=== PATIENT | male | born 1945 | race Caucasian/White ===

== ENCOUNTER 2017-01-05 23:11 | Inpatient (IN) | payer MEDICARE, OTHER ==
[~2017-01-05] VITALS: Ht 175.3 cm; Wt 120.7 kg
[2017-01-05 23:18] VITALS: BP 163/66; PULSE 84; RESP 18; TEMP 99; O2SAT 97
--- NOTE | 2017-01-05 23:20 | NUR ---
Placed in room 6 . Placed on monitoring analyst, blood pressure machine and pulse oximeter. To gown for exam. Side rails up. Report given to Danny TIAN. Placed by Mery TIAN.
--- NOTE | 2017-01-05 23:20 | NUR ---
Pt came in by ALS. Pt states he started having 7/10 substernal pressure like chest pain since 1300 today. Pt states it radiates to his R shoulder. Pain started after eating. Pt was discharged just a few days ago with pneumonia. Lung sounds diminished bilaterally. Was given 162 mg of ASA and 0.8 mg of Nitro. Pt's pain went down to 5/10 en route to hospital. Pt is a trach pt recieving 2 LPM of O2 via NC. Pt placed on monitor tech and will continue to monitor. No other injuries or complaints mentioned/noted. No distress noted.
--- NOTE | 2017-01-05 23:25 | NUR ---
ER Dr. Rodriguez at bedside examining patient.
[2017-01-05] MEDS ORDERED: MORPHINE 2 MG/ML INJ. SYRINGE IVP ONE (23:30)
[2017-01-05] MEDS ORDERED: NITROGLYCERIN 0.4 MG TAB.SUBL SL ONE (23:30)
[2017-01-05] MEDS ORDERED: AMOX-423 PO (23:34)
[2017-01-05] MEDS ORDERED: DIPH25CA83 PO (23:35)
[2017-01-05] MEDS ORDERED: SUCR1TAB78 PO (23:35)
[2017-01-05] MEDS ORDERED: CAT.2 PO ×2 (23:36→23:37)
[2017-01-05] MEDS ORDERED: CARV25TA55 PO (23:36)
[2017-01-05] MEDS ORDERED: DOCU-144 PO (23:38)
[2017-01-05] MEDS ORDERED: FERR-57 PO (23:38)
[2017-01-05] MEDS ORDERED: HYDR-4039 PO (23:39)
[2017-01-05] MEDS ORDERED: LOPE2CAP PO (23:40)
[2017-01-05] MEDS ORDERED: MAGN400O4 PO (23:41)
[2017-01-05] MEDS ORDERED: MAG-55 PO (23:41)
[2017-01-05] MEDS ORDERED: POLY17PO4 PO (23:42)
[2017-01-05] MEDS ORDERED: FOLI0.8T2 PO (23:43)
[2017-01-05] MEDS ORDERED: NOR10 PO (23:43)
[2017-01-05 23:44] LABS: HEMATOCRIT 28.5 % (36-54); HEMOGLOBIN 9.3 g/dL (14.0-18.0); MEAN CORPUSCULAR HEMOGLOBIN 27 pg (27-31); MEAN CORPUSCULAR HGB CONC 33 % (32-36); MEAN CORPUSCULAR VOLUME 83 fL (79.0-98.0); PLATELET COUNT (AUTO) 315 K/uL (130-430); RED BLOOD CELL COUNT(AUTO) 3.44 MIL/uL (4.2-6.2); RED CELL DISTRIBUTION WIDTH 12.4 % (9.0-15.0); WHITE BLOOD COUNT (AUTO) 20.3 K/uL (4.8-10.8)
[2017-01-05] MEDS ORDERED: OMEP40CA33 PO (23:44)
[2017-01-05] MEDS ORDERED: SER25 PO (23:44)
[2017-01-05] MEDS ORDERED: IPRATROPIUM BROM 0.5 MG/2.5 ML VIAL.NEB (ATROVENT) IH ONE (23:45)
[2017-01-05] MEDS ORDERED: SIME80TA PO (23:45)
[2017-01-05] MEDS ORDERED: ALBUTEROL SULFATE 0.083% 2.5 MG/3 ML VIAL.NEB IH ONE (23:45)
[2017-01-05] MEDS ORDERED: NS 500 ML IV ONE (23:45)
[2017-01-05] MEDS ORDERED: MONT10TA25 PO (23:46)
[2017-01-05] MEDS ORDERED: ACET-2165 PO (23:47)
[2017-01-05 23:50] LABS: ANION GAP 10 (5-15); CALCIUM 8.1 mg/dL (8.4-11.0); CHLORIDE 102 mmol/L (98-107); CREATININE 4.39 mg/dL (0.55-1.30); GLUCOSE 165 mg/dL (70-99); POTASSIUM 5.2 mmol/L (3.5-5.1); SODIUM SERUM 135 mmol/L (136-145); UREA NITROGEN, BLOOD 65 mg/dL (8-21)
[2017-01-05 23:52] LABS: PROTHROMBIN TIME 10.8 SECS (9.5-12.5)
[2017-01-05 23:55] LABS: ALANINE AMINOTRANSFERASE 14 U/L (12-78); ALBUMIN 1.8 g/dL (3.4-4.8); ASPARTATE AMINOTRANSFERASE 12 U/L (10-37); CHOLESTEROL 146 mg/dL (<200); CREATINE KINASE, TOTAL 34 U/L (39-308); HDL CHOLESTEROL 39 mg/dL (>45); LDL CHOLESTEROL 85 mg/dL (<100); TOTAL BILIRUBIN 0.2 mg/dL (0.0-1.0); TOTAL PROTEIN, SERUM 6.5 g/dL (6.4-8.3); TRIGLYCERIDES 63 mg/dL (30-150)
[2017-01-05] MEDS ORDERED: SSREG SUBCUT (23:55)
[2017-01-05] MEDS ORDERED: HYDR-1189 PO (23:57)
[2017-01-06] VITALS (7 sets, daily range): BP systolic 121–156; BP diastolic 69–92; PULSE 69–111; RESP 20–22; TEMP 97.8–98; O2SAT 94–98
[2017-01-06] MEDS ORDERED: ASCO500T20 PO
[2017-01-06] MEDS ORDERED: ZIN220 PO
[2017-01-06] MEDS ORDERED: CETI1TAB2 PO (00:01)
[2017-01-06] MEDS ORDERED: LACTIN PO (00:04)
[2017-01-06 00:16] LABS: BAND % (MANUAL) 2 % (0-6); BASOPHILS % (MANUAL) 0 % (0-2); EOSINOPHILS % (MANUAL) 1 % (0-7); LYMPHOCYTES % (MANUAL) 7 % (20-46); MONOCYTES % (MANUAL) 6 % (0-11)
[2017-01-06] MEDS ORDERED: cefTRIAXone 2 GM VIAL ONE (00:18)
--- NOTE | 2017-01-06 01:20 | NUR ---
Pt is resting comfortably in bed. Pt states he does not want to move due to being in position of comfort. Vitals WNL. Will continue to monitor via media monitor.
--- NOTE | 2017-01-06 01:21 | NUR ---
Pt will be a telemetry hold in the ER and admitted under Dr. Lutz.
[2017-01-06] MEDS ORDERED: ACETAMINOPHEN 325 MG TABLET PO PRN (01:30)
[2017-01-06 01:41] LABS: BILIRUBIN,URINE NEGATIVE (NEGATIVE); BLOOD, URINE NEGATIVE (NEGATIVE); CLARITY/URINE CLEAR (CLEAR); COLOR,URINE YELLOW (YELLOW); GLUCOSE,URINE TRACE (NEGATIVE); KETONES,URINE TRACE (NEGATIVE); LEUKOCYTE ESTERASE ,URINE NEGATIVE (NEGATIVE); NITRITE, URINE NEGATIVE (NEGATIVE); PH,URINE 5.5 (5.0-8.0); PROTEIN URINE 3+ (NEGATIVE); UROBILINOGEN,URINE 0.2 (0.2-1.0)
[2017-01-06] MEDS ORDERED: AZITHROMYCIN 500 MG in NS 250 ML IV ONE (01:45)
[2017-01-06] MEDS ORDERED: AZITHROMYCIN 500 MG/VIAL (ZITHROMAX) IV ONE (01:53)
[2017-01-06 01:55] LABS: BACTERIA,URINE FEW /HPF (None Seen); RBC,URINE 0-3 /HPF (0-3); WBC,URINE 0-3 /HPF (0-3)
[2017-01-06 01:56] LABS: MUCUS,URINE None Seen /LPF (None Seen)
--- NOTE | 2017-01-06 02:10 | NUR ---
Pt transferred to telemetry bed. No wounds on pt's backside. Pt tolerated it well.
--- NOTE | 2017-01-06 02:38 | NUR ---
Pt medicated with 650 mg of tylenol for 3/[address] Lutz PRN order.
[2017-01-06] MEDS ORDERED: ACETAMINOPHEN 325 MG TABLET ONE (02:39)
--- NOTE | 2017-01-06 03:20 | NUR ---
Pt is resting comfortably in bed. Vitals WNL. Will continue to monitor via pants busheler. Pt turned on side via pillow.
[2017-01-06] MEDS ORDERED: MORPHINE 2 MG/ML INJ. SYRINGE ONE (05:00)
[2017-01-06] MEDS ORDERED: MORPHINE 2 MG/ML INJ. SYRINGE IVP PRN (05:00)
[2017-01-06] MEDS ORDERED: ONDANSETRON HCL 4 MG/2 ML VIAL IVP PRN (05:00)
--- NOTE | 2017-01-06 05:00 | NUR ---
Pt is medicated with morphine 2 mg IV push for sudden onset of 6/10 substernal chest pressure that woke the patient up. Given telephone orders from Dr. Lutz.
--- NOTE | 2017-01-06 05:15 | NUR ---
Pt was medicated with Zofran 4mg IVP for sudden onset of nausea under PRN order from Dr. Lutz.
[2017-01-06] MEDS ORDERED: ONDANSETRON HCL 4 MG/2 ML VIAL ONE (05:20)
--- NOTE | 2017-01-06 05:25 | NUR ---
Pt states his pain is now 3/10 and is resting comfortable. Vitals WNL. Will continue to monitor via site monitor. AAOx4. Addendum: 01/06/17 at 0541 by LESLIE Pt rotated to opposite side via pillow.
--- NOTE | 2017-01-06 05:58 | NUR ---
Pt started having some dyspnea. Lung sounds diminished bilaterally. RT called for breathing tx.
[2017-01-06] MEDS ORDERED: cloNIDine HCL 0.1 MG TABLET ONE (06:08)
[2017-01-06] MEDS: ALBUTEROL SULFATE 0.083% 2.5 MG/3 ML VIAL.NEB INH SCH ×5 (06:16→23:23)
[2017-01-06] MEDS: IPRATROPIUM BROM 0.5 MG/2.5 ML VIAL.NEB (ATROVENT) INH SCH ×5 (06:16→23:22)
[2017-01-06] MEDS: cloNIDine HCL 0.2 MG TABLET PO SCH ×3 (06:19→21:23)
--- NOTE | 2017-01-06 06:55 | NUR ---
ADMIT NOTE Received pt from ER to the floor with a diagnosis of pna,atypical chest pain. Admission process initiated. patient oriented to pain management, safety and call light-teach back done.
--- NOTE | 2017-01-06 07:00 | NUR ---
Going to room 123A. Summary report printed. Report given to admitting nurse.
--- NOTE | 2017-01-06 07:30 | NUR ---
OPENING NOTE PATIENT RECEIVED FROM ER. ASMITA MARTINEZ ADMITTED PATIENT TO ROOM 123A PATIENT IS AWAKE, ALERT ORIENTED X4. PT IS BLIND BILATERALLY AND LEFT EYE WANTERS. LEFT LEG RIGID, RIGHT LEG STIFF. BL UE AROM WITH WEAKNESS. WOUND TO RT HEEL, LEFT CALF AND SACRUM. PHOTOS OBTAINED AND WOUNDS DRESSED WITH HYDROGEL, Z GUARD AND FOAM DRESSINGS. TOLERATED WELL. PT IS ON BLOW/BY O2 @2LPM TO TRACHE. SPEAKING VALVE IN PLACE. PT IS ABLE TO EAT BY HIMSELF, SWALLOWS WELL. NO SIGNS OF ASPIRATION.
--- NOTE | 2017-01-06 08:30 | NUR ---
PT C/O CHEST PAIN. REPORTS IT IS LEFT CHEST WALL AREA.
[2017-01-06 08:50] LABS: BASOPHILS % (AUTO) 0.1 % (0.0-2.0); EOSINOPHILS % (AUTO) 0.1 % (0.0-4.0); HEMATOCRIT 26.9 % (36-54); HEMOGLOBIN 8.7 g/dL (14.0-18.0); LYMPHOCYTES # (AUTO) 0.9 K/uL (1.0-5.5); LYMPHOCYTES % (AUTO) 4.7 % (20.5-51.5); MEAN CORPUSCULAR HEMOGLOBIN 27 pg (27-31); MEAN CORPUSCULAR HGB CONC 32 % (32-36); MEAN CORPUSCULAR VOLUME 82 fL (79.0-98.0); MONOCYTES # (AUTO) 2.2 K/uL (0.0-1.0); MONOCYTES % (AUTO) 11.9 % (1.7-9.3); NEUTROPHILS # (AUTO) 15.6 K/uL (1.8-7.7); NEUTROPHILS % (AUTO) 83.2 % (40.0-70.0); PLATELET COUNT (AUTO) 310 K/uL (130-430); RED BLOOD CELL COUNT(AUTO) 3.27 MIL/uL (4.2-6.2); RED CELL DISTRIBUTION WIDTH 12.4 % (9.0-15.0); WHITE BLOOD COUNT (AUTO) 18.7 K/uL (4.8-10.8)
[2017-01-06 08:57] LABS: ANION GAP 7 (5-15); CALCIUM 8.3 mg/dL (8.4-11.0); CHLORIDE 104 mmol/L (98-107); CREATININE 4.41 mg/dL (0.55-1.30); GLUCOSE 192 mg/dL (70-99); POTASSIUM 5.5 mmol/L (3.5-5.1); SODIUM SERUM 135 mmol/L (136-145); UREA NITROGEN, BLOOD 65 mg/dL (8-21)
[2017-01-06 09:02] LABS: ALANINE AMINOTRANSFERASE 12 U/L (12-78); ALBUMIN 1.6 g/dL (3.4-4.8); ASPARTATE AMINOTRANSFERASE 10 U/L (10-37); TOTAL BILIRUBIN 0.2 mg/dL (0.0-1.0); TOTAL PROTEIN, SERUM 6.1 g/dL (6.4-8.3)
--- NOTE | 2017-01-06 09:05 | NUR ---
Pulmonary consult Order received for a consult with Dr Scott for pneumonia. Spoke with Saray at his office. Will follow up as needed.
--- NOTE | 2017-01-06 09:30 | NUR ---
PATIENT MEDICATED FOR PAIN. REPORTED MILD DECREASE IN PAIN IMMEDIATELY AFTER MORPHINE ADMIN. MEDICATED PER ORDERS.
[2017-01-06] MEDS: MORPHINE 2 MG/ML INJ. SYRINGE IVP PRN ×4 (09:52→22:03)
[2017-01-06] MEDS: CARVEDILOL 25 MG TABLET (COREG) PO SCH ×2 (09:53→20:49)
[2017-01-06] MEDS: amLODIPine BESYLATE 10 MG TABLET PO SCH (09:53)
[2017-01-06] MEDS: DOCUSATE SODIUM 100 MG CAPSULE PO SCH (09:54)
[2017-01-06] MEDS: POLYETHYLENE GLYCOL 3350, 17 GM/ POWD.PACK PO SCH (09:54)
[2017-01-06] MEDS: hydrALAZINE HCL 25 MG TABLET PO SCH ×4 (09:54→20:48)
[2017-01-06] MEDS: SUCRALFATE 1 GM TABLET PO SCH ×3 (09:54→20:47)
[2017-01-06] MEDS: OMEPRAZOLE 20 MG CAPSULE.DR (PriLOSEC) PO SCH (09:54)
--- NOTE | 2017-01-06 11:00 | NUR ---
PATIENT MOVED TO NEW OMEGA BED. WHILE LYING FLAT PT REPORTED HE COULDNT BREATHE. PT QUICKLY TRANSFERRED AND SAT UPRIGHT FOR BREATHING EASE. RT AT BEDSIDE TO GIVE BREATHING TX.
--- NOTE | 2017-01-06 12:36 | NUR ---
PT REPORTS HEADACHE. REQUESTING TYLENOL.
--- NOTE | 2017-01-06 13:00 | NUR ---
PATIENT GIVEN MEDICATIONS FOR PAIN. MORPHINE WORKS BEST PER PATIENT. MORPHINE AND APRESOLINE ADMINISTERED. PT REPORTED IMMEDIATE PAIN RELIEF.
--- NOTE | 2017-01-06 13:32 | NUR ---
PATIENT IS SLEEPING. HAS NOT EATEN ANY OF HIS LUNCH. USED URINAL AGAIN. TOTAL OUTPUT 200ML FOR SHIFT SO FAR
--- NOTE | 2017-01-06 14:30 | NUR ---
PATIENT IS REPORTING INCREASING CHEST PAIN AND REQUESTING A BREATHING TREATMENT. PATIENT GIVEN NORCO, RT IS INVOLVED IN A CODE BLUE AT THIS MOMENT. PTS PULSE OX IS 94%. SPEAKING IN FULL SENTENCES
[2017-01-06] MEDS: HYDROcodone/ACETAMIN 5-325 MG TAB (NORCO/ VICODIN) PO PRN ×2 (14:46→20:49)
--- NOTE | 2017-01-06 16:35 | NUR ---
PATIENT CLEANED OF INCONTINENCE. LINEN CHANGED. PT TOLERATED SOMEWHAT WELL. STATED HE COULDNT BREATHE YET WAS YELLING IN FULL SENTENCES.
--- NOTE | 2017-01-06 16:45 | NUR ---
PATIENT IS RESTING CALMLY. NO APPARENT DISTRESS. REMAINS ON TELE MONITOR AND PULSE OX MINITOR. LEFT FA 20G IV PATENT, NO REDNESS OR SWELLING
[2017-01-06] MEDS ORDERED: SODIUM POLYSTYRENE SULFONATE 15 GM/60 ML UDBTL PO ONE (17:30)
--- NOTE | 2017-01-06 17:46 | NUR ---
Nephrology consult Order received for a consult with Dr Fernandes for chronic kidney failure. Spoke with Snehal at the exchange. Will follow up as needed.
--- NOTE | 2017-01-06 17:57 | NUR ---
assisted patient with urinal. medicated per orders and for pain with morphine. patient able to swallow all pills and kayexalate without signs of aspiration
--- NOTE | 2017-01-06 18:41 | NUR ---
DR ORTEGA IN TO SEE PATIENT. ORDERS FOR BLADDER SCAN TONIGHT AND RENAL US AT BEDSIDE.
--- NOTE | 2017-01-06 19:30 | NUR ---
rounds offered hygine to pt and he refused notified rn
--- NOTE | 2017-01-06 20:00 | NUR ---
Initial PM Note Pt was received lying in bed fully AAO x3. No acute distress noted. PM assessment done. Fall precautions are in place. Pt was instructed to call for assistance as needed and pt verbalized understanding. Call light is with pt and bed alarm is on.
[2017-01-06] MEDS: MONTELUKAST 10 MG TABLET PO SCH (20:47)
--- NOTE | 2017-01-06 20:49 | NUR ---
Pain Medication [place] 5/325mg 1 tablet was given po for c/o generalized body ache with no relief. Pt requested IV Morphine.
[2017-01-06] MEDS: APIXABAN 2.5 MG TABLET PO SCH ×2 (21:00→22:01)
[2017-01-06] MEDS: INSULIN REGULAR, HUMAN 100 UNITS/ML, 10 ML VIAL (novoLIN R) SUBCUT PRN (21:22)
--- NOTE | 2017-01-06 21:22 | NUR ---
Blood Sugar Accucheck 158 and 2 units Regular Insulin given SQ. Skin warm and dry to touch.
--- NOTE | 2017-01-06 22:00 | NUR ---
hygiene went in to offer hygine to pt and change is linen and pt yelled and said no you are not cleaning me they all ready did. i asked the nurse and she said no she did not she just pulled him up.
[2017-01-06] MEDS: CEFTAZIDIME 1 GM in D5W 50 ML IV SCH (22:02)
[2017-01-06] MEDS ORDERED: CEFTAZIDIME 1 GM VIAL ONE (22:03)
--- NOTE | 2017-01-06 22:03 | NUR ---
Pain medication Morphine 2mg given IV per pt's request for c/o upper mid abdominal pain with relief.
--- NOTE | 2017-01-07 | NUR ---
Rounds Pt is resting comfortably in bed. Call light is with pt.
[2017-01-07 00:30] VITALS: BP 148/76; PULSE 99; RESP 19; TEMP 98.1; O2SAT 94
[2017-01-07] MEDS ORDERED: cefTRIAXone 1 GM IVPB PREMIX 50 ML IV SCH (01:00)
--- NOTE | 2017-01-07 01:13 | NUR ---
ROUNDS I WENT BACK IN TO OFFER PT TO BE CLEANED AND FIX LINEN HE SAID NO I DONT WANT IT. WILL CONT TO OFFER.
[2017-01-07] MEDS: AZITHROMYCIN 500 MG in NS 250 ML IV SCH (01:27)
[2017-01-07] MEDS: ZOLPIDEM TARTRATE 5 MG TABLET PO PRN ×2 (01:27→21:39)
--- NOTE | 2017-01-07 01:27 | NUR ---
Insomnia Ambien 5mg was given po per pt's request for insomnia.
--- NOTE | 2017-01-07 02:30 | NUR ---
Rounds Pt is sleeping comfortably in bed. No resp distress noted. Call light is with pt.
[2017-01-07] MEDS: ALBUTEROL SULFATE 0.083% 2.5 MG/3 ML VIAL.NEB INH SCH ×3 (03:00→15:40)
[2017-01-07] MEDS: IPRATROPIUM BROM 0.5 MG/2.5 ML VIAL.NEB (ATROVENT) INH SCH ×3 (03:00→15:40)
--- NOTE | 2017-01-07 03:00 | NUR ---
rounds pt still is refusing to be cleaned rn aware
--- NOTE | 2017-01-07 03:55 | NUR ---
Blood Sugar Accucheck done per pt's request and it was 153. Skin remains warm and dry to touch. Pt did not want any snack.
[2017-01-07 04:00] VITALS: BP 116/80; PULSE 91; RESP 18; TEMP 98.2; O2SAT 95
--- NOTE | 2017-01-07 05:01 | NUR ---
rounds went in to clean pt and pt cont to refuse to be clean he said no not till morning . notified rn and charge nurse.
[2017-01-07] MEDS: MORPHINE 2 MG/ML INJ. SYRINGE IVP PRN ×2 (06:22→16:57)
[2017-01-07] MEDS: INSULIN REGULAR, HUMAN 100 UNITS/ML, 10 ML VIAL (novoLIN R) SUBCUT PRN ×2 (06:28→21:44)
--- NOTE | 2017-01-07 06:40 | NUR ---
Closing Note Pt is resting comfortably in bed. All pt's needs were attended to. No fall or injury noted this shift. Will endorse to day shift nurse.
[2017-01-07 06:51] LABS: ALANINE AMINOTRANSFERASE 12 U/L (12-78); ALBUMIN 1.6 g/dL (3.4-4.8); ANION GAP 9 (5-15); ASPARTATE AMINOTRANSFERASE 8 U/L (10-37); CALCIUM 8.7 mg/dL (8.4-11.0); CHLORIDE 99 mmol/L (98-107); CREATININE 5.48 mg/dL (0.55-1.30); GLUCOSE 168 mg/dL (70-99); POTASSIUM 5.6 mmol/L (3.5-5.1); SODIUM SERUM 131 mmol/L (136-145); TOTAL BILIRUBIN 0.2 mg/dL (0.0-1.0); TOTAL PROTEIN, SERUM 6.6 g/dL (6.4-8.3); UREA NITROGEN, BLOOD 73 mg/dL (8-21)
[2017-01-07] MEDS: cloNIDine HCL 0.2 MG TABLET PO SCH ×3 (06:51→21:39)
[2017-01-07 07:41] LABS: HEMOGLOBIN 9.6 g/dL (14.0-18.0); MEAN CORPUSCULAR HEMOGLOBIN 28 pg (27-31); MEAN CORPUSCULAR HGB CONC 33 % (32-36); MEAN CORPUSCULAR VOLUME 84 fL (79.0-98.0); PLATELET COUNT (AUTO) 351 K/uL (130-430); RED BLOOD CELL COUNT(AUTO) 3.43 MIL/uL (4.2-6.2); RED CELL DISTRIBUTION WIDTH 12.8 % (9.0-15.0)
[2017-01-07 08:00] VITALS: BP 130/75; PULSE 89; RESP 20; TEMP 97.6; O2SAT 97
[2017-01-07 08:21] LABS: WHITE BLOOD COUNT (AUTO) 32.4 K/uL (4.8-10.8)
--- NOTE | 2017-01-07 08:26 | NUR ---
OPENING NOTE RECEIVED REPORT FROM NIGHT NURSE, PATIENT IS RESTING COMFORTABLY IN BED WITH NO COMPLAINTS OF PAIN, NO NOTED DISTRESS, DISCOMFORT OR SOB. PATIENT IS ALERT AND ORIENTED AND ABLE TO COMMUNICATE NEEDS TO STAFF. PATIENT IS BEDREST AND IS IN LOWEST POSITION. PATIENT HAS A TRACH WITH 2L OF 02 AND TOLERATING WELL. CALL LIGHT IS WITHIN REACH AND WILL CONTINUE TO MONITOR. RECEIVED A CRITICAL WBC OF 32.[address] BLAS WAS PAGED.
--- NOTE | 2017-01-07 08:27 | NUR ---
PAGED DR BLAS FOR CRITICAL LABS. SPOKE WITH DONY
--- NOTE | 2017-01-07 09:30 | NUR ---
CRITICAL LAB DR BLAS CALLED BACK AND WAS MADE AWARE OF WBC AND NO NEW ORDERS WERE NOTED AT THIS TIME. HE STATED THAT HE WILL BE IN SOON TO SEE THE PATIENT.
[2017-01-07] MEDS: amLODIPine BESYLATE 10 MG TABLET PO SCH (09:37)
[2017-01-07] MEDS: DOCUSATE SODIUM 100 MG CAPSULE PO SCH (09:37)
[2017-01-07] MEDS: POLYETHYLENE GLYCOL 3350, 17 GM/ POWD.PACK PO SCH (09:37)
[2017-01-07] MEDS: OMEPRAZOLE 20 MG CAPSULE.DR (PriLOSEC) PO SCH (09:38)
[2017-01-07] MEDS: SUCRALFATE 1 GM TABLET PO SCH ×3 (09:38→21:38)
[2017-01-07] MEDS: APIXABAN 2.5 MG TABLET PO SCH ×2 (09:38→21:38)
[2017-01-07] MEDS: CARVEDILOL 25 MG TABLET (COREG) PO SCH ×2 (09:39→21:39)
[2017-01-07] MEDS: hydrALAZINE HCL 25 MG TABLET PO SCH ×4 (09:40→21:49)
[2017-01-07 09:43] LABS: ATYPICAL LYMPHOCYTES % 3 % (0-0); BAND % (MANUAL) 4 % (0-6); BASOPHILS % (MANUAL) 0 % (0-2); EOSINOPHILS % (MANUAL) 0 % (0-7); LYMPHOCYTES % (MANUAL) 6 % (20-46); MONOCYTES % (MANUAL) 3 % (0-11)
--- NOTE | 2017-01-07 09:47 | NUR ---
Nutrition Update Corbin Scale 15 noted. Pt admitted for pneumonia, atypical chest pain. Diet: [facility] BMI: 39.9 kg/m2 RD to follow per nutrition care standards.
--- NOTE | 2017-01-07 10:31 | NUR ---
NOTE PATIENT IS RESTING COMFORTABLY IN BED WITH NO COMPLAINTS OF PAIN, NO NOTED DISTRESS, DISCOMFORT OR SOB. PATIENT'S VITAL SIGNS WERE WITHIN NORMAL RANGE AND ALL MEDICATIONS WERE GIVEN WITH NO PROBLEMS. CALL LIGHT IS WITHIN REACH AND WILL CONTINUE TO MONITOR.
[2017-01-07] MEDS ORDERED: BISACODYL 10 MG/SUPPOSITORY RC PRN (11:45)
--- NOTE | 2017-01-07 12:15 | NUR ---
NOTE PATIENT IS RESTING IN BED COMFORTABLY WITH NO COMPLAINTS OF PAIN, NO NOTED DISTRESS, DISCOMFORT OR SOB. PATIENT'S BS WAS 142 AND NO COVERAGE WAS NEEDED AT THIS TIME. BED IS IN LOWEST POSITION AND CALL LIGHT IS WITHIN REACH. WILL CONTINUE TO MONITOR.
[2017-01-07 12:53] VITALS: BP 150/78; PULSE 95; RESP 20; TEMP 97.9; O2SAT 97
[2017-01-07] MEDS: metroNIDAZOLE 500 mg/NS 100 ML IV SCH ×2 (13:27→21:51)
[2017-01-07 13:53] VITALS: Ht 175.3 cm; Wt 120.7 kg
--- NOTE | 2017-01-07 14:30 | NUR ---
NOTE PATIENT IS RESTING IN BED COMFORTABLY WITH NO COMPLAINTS OF PAIN, NO NOTED DISTRESS, DISCOMFORT OR SOB. BED IS IN LOWEST POSITION AND CALL LIGHT IS WITHIN REACH AND WILL CONTINUE TO MONITOR.
--- NOTE | 2017-01-07 14:35 | NUR ---
WOUND EVALUATION: Late note for 1435 secondary to patient care. Wound Consult received from Dr. Lutz. Thank you, Dr. Lutz, for the consult. Patient received in a [place]well Bed with an IsoFlex COLTON mattress with low air-loss therapy initiated, awake, alert, oriented. Patient is unable to turn independently. Corbin Score is a 15. Past Medical History: chronic COPD, Chronic Respiratory Failure on T-bar, Diabetes Mellitus Type 2, Peripheral Arterial Disease, essential Hypertension, Chronic Kidney Disease, Anemia of Chronic Disease, GERD, Hypertension, chronic Constipation, Allergic Rhinitis, Chronic Pain, and Tracheostomy. Recent Labs: WBC 32.4, RBC 3.43, Hgb 9.6, Hct 29.0, Na 131, K 5.6, BUN 73, Creat 5.48, Gluc 168, Alb 1.6. Intrinsic factors that delay wound healing: COPD, Chronic Respiratory Failure, Diabetes Mellitus Type 2, Peripheral Arterial Disease, Anemia of Chronic Disease. Extrinsic factors that delay wound healing: Decreased mobility. Microbiology: Blood Culture x 2 in progress. Urine Culture and MRSA Screen results negative. Wound Assessment: 1) Sacral-Coccygeal Area: Pressure Ulcer, present on admission. Wound bed is 50% yellow tissue, 50% red tissue. No odor, no drainage. robert-wound intact. Measures 1.0 cm x 0.4 cm x 0.6 cm. Recommend: Cleanse wound with normal saline. Place moisture barrier cream onto robert-wound. Put Hydrogel onto wound bed. Cover with foam dressing. Perform wound care daily, and as needed for dressing soiling or dislodgement. 2) Right Heel: Pressure Ulcer, present on admission. Wound bed is 100% pink tissue. No odor, no drainage. robert-wound intact. Measures 0.6 cm x 0.4 cm. Recommend: Cleanse wound with normal saline. Place moisture barrier cream onto robert-wound. Put Hydrogel onto wound bed. Cover with foam dressing. Perform wound care daily, and as needed for dressing soiling or dislodgement. Also recommend: Reposition patient side toside only every 2 hours with pillow support, and off-load pressure areas with pillows for pressure re-distribution. Offload, elevate and float bilateral heels with pillows. Perform skin care and monitor skin integrity Q shift. Use moisture barrier cream on buttocks and other moisture susceptible areas QID and as needed for soiling. Maintain patient on low air-loss therapy.
[2017-01-07] MEDS: 0.45% NACL 1,000 ML IV SCH (15:52)
[2017-01-07 16:23] VITALS: BP 144/76; PULSE 90; RESP 19; TEMP 98.1; O2SAT 97
--- NOTE | 2017-01-07 16:30 | NUR ---
NOTE PAGED DR ORTEGA BECAUSE PATIENT HAS HAD NO URINE OUTPUT TODAY, HE ORDERED TO INSERT A SPENCE. I TRIED, MY 2 CHARGE NURSES TRIED AND THE ER NURSE TRIED TO PLACE THE SPENCE AND IT WAS BLOCKED. A BLADDER SCAN WAS DONE AND THERE WAS 310 URINE IN THE BLADDER. PAGING DR ORTEGA AGAIN TO LET HIM KNOW.
--- NOTE | 2017-01-07 17:25 | NUR ---
PAGED DR ORTEGA FOR ORDERS
--- NOTE | 2017-01-07 17:39 | NUR ---
NOTE PATIENT'S BS WAS 148 AND NO COVERAGE IS NEEDED AT THIS TIME. DR ORTEGA CALLED BACK AND WAS INFORMED THAT THE SPENCE COULD NOT BE INSERTED BECAUSE THERE WAS A BLOCKAGE AND A NEW ORDER TO CONSULT DR ARAGON WAS NOTED AND CARRIED OUT. PATIENT DID URINATE AND MORPHINE WAS GIVEN BECAUSE THE PATIENT HAD CHEST PAIN. CALL LIGHT IS WITHIN REACH AND WILL CONTINUE TO MONITOR
--- NOTE | 2017-01-07 17:45 | NUR ---
CONSULT REASON FOR CONSULT: BLOCKAGE, CANNOT INSERT SPENCE CONSULTING PHYSICIAN: TAMARA ARAGON MD ORDERED BY: VERO ORTEGA MD SPOKE WITH MARCUS FROM EXCHANGE
--- NOTE | 2017-01-07 17:56 | NUR ---
NOTE DR ARAGON CALLED AND STATED THAT HE DOES NOT KNOW IF HE ACCEPTS THE PATIENTS INSURANCE BUT WILL CALL HIS OFFICE AND VERIFY AND CALL TOMORROW TO LET US KNOW.
--- NOTE | 2017-01-07 18:19 | NUR ---
CLOSING NOTE PATIENT IS RESTING IN BED COMFORTABLY WITH NO NOTED DISTRESS, DISCOMFORT OR SOB. PATIENT'S BED IS IN LOWEST POSITION AND CALL LIGHT IS WITHIN REACH. PATIENT IS ALERT AND ORIENTED AND ABLE TO COMMUNICATE NEEDS TO STAFF. WILL GIVE REPORT TO NIGHT NURSE.
[2017-01-07 19:55] VITALS: PULSE 92; RESP 20; TEMP 96.9; O2SAT 90
--- NOTE | 2017-01-07 20:00 | NUR ---
NOTE; PT IS IN BED, BLIND LÓPEZ EYE. ALERT, ORIENTED X3. ABLE TO COMMUNICATE NEEDS. PT IS ON TRACH TO MASK, O2 AT 4L AT THIS TIME. O2 SAT BETWEEN 90-91%. NO ACUTE DISTRESS OR SOB NOTED AT THIS TIME. BLADDER SLIGHTLY DISTENDED. BLADDER SCAN USED NOTED ABOUT 600ML URINE. PT INCONTINENT AFTER BLADDER SCAN USED. AJVIER CARE PROVIDED BY HUMANE OFFICER. PT IS ON AIR MATTRESS. PT REFUSED SACRAL WOUND DRESSING AT THIS TIME. EDUCATED PT ON IMPORTANCE OF WOUND DRESSING. PT STILL REFUSED. NONCOMPLIANT. BED LOCKED AND IN LOW POSITION, SIDE RAILS UP X3. BED ALARM ON. CALL LIGHT AND BEDSIDE TABLE WITHIN REACH . WILL CONTINUE TO MONITOR.
[2017-01-07] MEDS: CEFTAZIDIME 1 GM in D5W 50 ML IV SCH (20:49)
[2017-01-07] MEDS: MONTELUKAST 10 MG TABLET PO SCH (21:38)
--- NOTE | 2017-01-07 22:12 | NUR ---
NOTES; CT ABDOMEN AND PELVIS RESULTS RECEIVED. DR ORTEGA CALLED, SPOKE WITH MD AND RESULTS READ TO MD. DR ORTEGA STATED TO CALL DR. MCKEON WITH RESULTS.
--- NOTE | 2017-01-07 22:12 | NUR ---
PAGED PAGED DANK STEWARD AT [phone] SPOKE WITH EXCHANGE.
--- NOTE | 2017-01-07 22:16 | NUR ---
NOTES; DR MCKEON CALLED, SPOKE WITH MD. CT ABDOMEN AND PELVIS RESULTS READ TO MD. DR MCKEON STATED" OK LET ME THINK ABOUT IT" . CHARGE NURSE KWESI WILSON.
[2017-01-08] VITALS (22 sets, daily range): BP systolic 96–161; BP diastolic 50–94; PULSE 69–94; RESP 16–27; TEMP 96.8–98.2; O2SAT 89–98
--- NOTE | 2017-01-08 00:20 | NUR ---
NOTES; PT IS DESATURATING, PULSE OX READING 82%. RT CALLED AND AT BEDSIDE GIVING BREATHING TREATMENT. WILL CONTINUE TO MONITOR.
[2017-01-08] MEDS: AZITHROMYCIN 500 MG in NS 250 ML IV SCH (00:59)
--- NOTE | 2017-01-08 01:30 | NUR ---
NOTES; BED KLEIN PROVIDED BY [employer], PT HAD X1 SMALL SOFT BM. JAVIER CARE PROVIDED. SAFETY MEASURES IN PROGRESS. WILL CONTINUE TO MONITOR.
--- NOTE | 2017-01-08 03:57 | NUR ---
NOTES; APPEARED TO BE SLEEPING, EYES CLOSED. RESPIRATION EVEN AND UNLABORED. EASILY AROUSED. SAFETY MEASURES IN PROGRESS.
--- NOTE | 2017-01-08 04:30 | NUR ---
NOTES; AWAKE, REQUESTED FAN TO BE TURNED AND POSITION IN PARTICULAR PLACE. REQUEST RENDERED. REPOSITIONED. PT REFUSED DRESSING ON SACRAL WOUND . TRIED TO EDUCATE PT ABOUT THE IMPORTANCE OF WOUND DRESSING. PT WILL NOT LISTEN. PT IS NONCOMPLIANT. CHARGE NUSE AND RN COVERING NOTIFIED.
[2017-01-08] MEDS: metroNIDAZOLE 500 mg/NS 100 ML IV SCH ×3 (05:10→21:07)
--- NOTE | 2017-01-08 05:10 | NUR ---
NOTES; PT CALLED FOR TV TO BE TURNED OFF. TV WAS TURNED OFF. REQUESTED TO TURN IT ON AGAIN. TV TURNED ON . REPOSITIONED PER PT REQUEST. RT AT BEDSIDE . SAFETY MEASURES IN PROGRESS.
[2017-01-08] MEDS: cloNIDine HCL 0.2 MG TABLET PO SCH ×3 (06:08→21:28)
[2017-01-08] MEDS: INSULIN REGULAR, HUMAN 100 UNITS/ML, 10 ML VIAL (novoLIN R) SUBCUT PRN ×2 (06:10→17:24)
[2017-01-08] MEDS: ALBUTEROL SULFATE 0.083% 2.5 MG/3 ML VIAL.NEB INH SCH ×8 (06:11→23:28)
[2017-01-08] MEDS: IPRATROPIUM BROM 0.5 MG/2.5 ML VIAL.NEB (ATROVENT) INH SCH ×7 (06:12→23:28)
[2017-01-08] MEDS: MORPHINE 2 MG/ML INJ. SYRINGE IVP PRN (06:16)
--- NOTE | 2017-01-08 06:50 | NUR ---
Notes Morphine 2mg iv administered by RN covering for abd pain of 6/10. Pt tolerated medication well. Pt stated effective pain afetr pain reassessment. At this time, Pt is resting quietly in bed, easily aroused, no acute distress noted. No SOB noted. Patient is stable, all needs met throughout shift. Will continue to monitor until endorsed to AM nurse at bedside.
[2017-01-08 07:28] LABS: BASOPHILS # (AUTO) 0.1 K/uL (0.0-0.2); BASOPHILS % (AUTO) 0.2 % (0.0-2.0); HEMATOCRIT 26.5 % (36-54); HEMOGLOBIN 8.7 g/dL (14.0-18.0); LYMPHOCYTES # (AUTO) 1.2 K/uL (1.0-5.5); LYMPHOCYTES % (AUTO) 4.1 % (20.5-51.5); MEAN CORPUSCULAR HEMOGLOBIN 28 pg (27-31); MEAN CORPUSCULAR HGB CONC 33 % (32-36); MEAN CORPUSCULAR VOLUME 85 fL (79.0-98.0); MONOCYTES # (AUTO) 2.1 K/uL (0.0-1.0); MONOCYTES % (AUTO) 7.1 % (1.7-9.3); PLATELET COUNT (AUTO) 349 K/uL (130-430); RED BLOOD CELL COUNT(AUTO) 3.13 MIL/uL (4.2-6.2); RED CELL DISTRIBUTION WIDTH 13.2 % (9.0-15.0); WHITE BLOOD COUNT (AUTO) 29.4 K/uL (4.8-10.8)
--- NOTE | 2017-01-08 07:52 | NUR ---
Follow up urologist consult with Andrew YUNG called in the exchange , reason unable to put mendoza catheter due to resistance/ blockage patient dribbling urinating
--- NOTE | 2017-01-08 08:10 | NUR ---
Dr. Lutz pagese ragarding progress of patient ,chest pain of the patient 05/31 , looks drowsy but able to answers question , O2 SATURATION 91% with trache mask at 7 L/ mask , looks pale and sick ,with n.o. carried out .
--- NOTE | 2017-01-08 08:12 | NUR ---
Nutrition Consult Nutrition Consult (Wounds) received 01/07/171944. Pt was seen and assessed by RD on 01/07/17. Please refer to Nutrition Assessment. RD to continue to follow per nutrition care standards.
[2017-01-08 08:15] LABS: ANION GAP 11 (5-15); CALCIUM 8.5 mg/dL (8.4-11.0); CHLORIDE 100 mmol/L (98-107); CREATININE 6.76 mg/dL (0.55-1.30); GLUCOSE 168 mg/dL (70-99); SODIUM SERUM 132 mmol/L (136-145); UREA NITROGEN, BLOOD 84 mg/dL (8-21)
[2017-01-08 08:19] LABS: NEUTROPHILS % (AUTO) 88.6 % (40.0-70.0)
[2017-01-08 08:29] LABS: POTASSIUM 6.5 mmol/L (3.5-5.1)
[2017-01-08] MEDS ORDERED: NITROGLYCERIN 0.4 MG TAB.SUBL SL ONE (08:30)
[2017-01-08] MEDS ORDERED: COMMUNICATION ORDER XX ONE (08:30)
--- NOTE | 2017-01-08 08:33 | NUR ---
CALLED PRESSURE SUPERVISOR, DR ORTEGA, RE: CRITICAL K LEVEL OF 6.4. LEFT A MESSAGE ON HIS CELL PHONE
--- NOTE | 2017-01-08 08:51 | NUR ---
CONS FOR DR THAPA SW EXCHANGE FOR BELKYS GARCIA
[2017-01-08] MEDS: hydrALAZINE HCL 25 MG TABLET PO SCH ×5 (09:00→21:00)
[2017-01-08] MEDS: DOCUSATE SODIUM 100 MG CAPSULE PO SCH (09:00)
[2017-01-08] MEDS: amLODIPine BESYLATE 10 MG TABLET PO SCH (09:00)
[2017-01-08] MEDS: POLYETHYLENE GLYCOL 3350, 17 GM/ POWD.PACK PO SCH (09:00)
[2017-01-08] MEDS: CARVEDILOL 25 MG TABLET (COREG) PO SCH ×2 (09:00→21:00)
[2017-01-08] MEDS: 0.45% NACL 1,000 ML IV SCH (09:02)
--- NOTE | 2017-01-08 09:05 | NUR ---
CALLED ATTENDING MD DR BLAS, RE: LAB RESULTS. SPOKE TO JOE
--- NOTE | 2017-01-08 09:10 | NUR ---
Patient still with chest pain more to the right side , agreed to take nitroglycerin SL to releive chest pain, verbalized understanding of medication, EKG completed seen and examined by Dr. Butterfield ; RAPID RESPONSE was called due to chest pain EKG RESULT shows acute ME , ANALISA YUNG , ATIL at the bedside . Dr. copeland informed regarding patient progress , lab result and needs of the patient with order to transfer patient to ICU for close monitoring.
[2017-01-08] MEDS: OMEPRAZOLE 20 MG CAPSULE.DR (PriLOSEC) PO SCH (09:28)
[2017-01-08] MEDS: SUCRALFATE 1 GM TABLET PO SCH ×3 (09:29→21:00)
--- NOTE | 2017-01-08 09:29 | NUR ---
TRANSFER TO ICU FOR CLOSE MONITORING
--- NOTE | 2017-01-08 09:50 | NUR ---
Family member Valentino Teague informed regarding transfer to ICU for close monitoring and progress/condition of patient .
--- NOTE | 2017-01-08 09:58 | NUR ---
Called Dr. Dean's office for Gigi insertion consultation. AWaiting for him to call back.
--- NOTE | 2017-01-08 10:05 | NUR ---
RN NOTES: TRANSFER FROM [facility] POST HYDROMETEOROLOGIST. TRANSFER FROM [facility] POST HYDROMETEOROLOGIST, CAME IN TO ICU DUE TO CHEST DISCOMFORT AND ELEVATED BUN/CREAT. PATIENT IS AWAKE AND ALERT, WITH TRACHE TO O2 50% VIA TRACHE COLLAR, SPO2 90%. SCOPE SHOWS SINUS RHYTHM, INITIAL VITALS CHECKED AND RECORDED. PATIENT KEPT COMFORTABLE.
[2017-01-08 10:28] LABS: ABG TOTAL HEMOGLOBIN 9.1 G/dL (12.0-18.0); BLOOD GAS BASE EXCESS -10.4 mmol/L (-3.0-3.0); BLOOD GAS COHb% 1.1 % (0.5-1.5); BLOOD O2Hb% 85.6 % (94.0-97.0)
[2017-01-08] MEDS ORDERED: HEPARIN SODIUM,PORCINE 5000 UNITS/ML VIAL ONE (10:31)
--- NOTE | 2017-01-08 11:00 | NUR ---
RN NOTES BELKYS CATHETER PLACEMENT BY DR. THAPA.
--- NOTE | 2017-01-08 11:30 | NUR ---
SPOKE TO DR. MULLINS RE: PT TRACHE (CUFFLESS), IT'S OK FOR RESP. THERAPIST TO CHANGE TRACHE TO CUFFED PORTEX.
[2017-01-08] MEDS: LORazepam 2 MG/ML VIAL IVP PRN ×2 (11:53→16:17)
--- NOTE | 2017-01-08 12:00 | NUR ---
SPOKE TO DR. THAPA RE: BELKYS CATHETER PLACEMENT (CXR) - OK TO USE BELKYS CATHETER PER DR. THAPA.
--- NOTE | 2017-01-08 12:05 | NUR ---
RT NOTES PER DR. MULLINS CHANGE TRACH TO PORTEX 7 CUFFED. CONNECT TO VENT VIA SETTINGS OF AC 18 500 60%. KEEP SAT ABOVE 90%. NO RESPIRATORY DISTRESS NOTED AT THIS TIME. RN MADE AWARE OF CHANGES. WILL CONTINUE MONITOR.
--- NOTE | 2017-01-08 12:18 | NUR ---
SEEN BY DR. ORTEGA, WITH ORDERS.
--- NOTE | 2017-01-08 12:19 | NUR ---
BLOOD SUGAR = 143 MGS/DL NO INSULIN COVERAGE GIVEN.
--- NOTE | 2017-01-08 12:30 | NUR ---
RN NOTES PATIENT ON THE VENT, UNPAID INTERN AT BEDSIDE.
[2017-01-08] MEDS ORDERED: NOREPINEPHRINE BITARTRATE 16 MG in NS 234 ML IV PRN (13:30)
--- NOTE | 2017-01-08 16:20 | NUR ---
RN NOTES PATIENT MEDICATED FOR AGITATION. REPOSITIONED.
--- NOTE | 2017-01-08 16:40 | NUR ---
MD VISIT: DR. WAN BLAS HERE TO SEE PATIENT, WITH ORDERS.
--- NOTE | 2017-01-08 17:00 | NUR ---
BLOOD SUGAR = 153 MGS/DL, DUE INSULIN COVERAGE GIVEN.
[2017-01-08] MEDS ORDERED: ENALAPRILAT DIHYDRATE 1.25 MG/ML VIAL IVP PRN (17:15)
[2017-01-08] MEDS ORDERED: ENOXAPARIN SODIUM 30 MG/0.3 ML SYRINGE SUBCUT ONE (17:30)
--- NOTE | 2017-01-08 18:00 | NUR ---
RN NOTES PM CARE DONE, CHG BATH RENDERED, PATIENT REPOSITIONED FOR COMFORT.
[2017-01-08] MEDS: ENOXAPARIN SODIUM 30 MG/0.3 ML SYRINGE SUBCUT SCH (18:05)
--- NOTE | 2017-01-08 18:45 | NUR ---
RN NOTES NO ACUTE DISTRESS NOTED, VITALS STABLE.
--- NOTE | 2017-01-08 20:00 | NUR ---
PM ASSESSMENT PT IN BED, CALM AND COOPERATIVE. NO SIGNS OF DISTRESS. PT DENIES ANY PAIN THIS MOMENT. TRACH 7 PORTEX CUFFED CONNECTED TO VENT AC 18 TV 500 FIO2 60%. O2 SAT 90%. BREATHING EVEN AND UNLABORED. SINUS RHYTHM ON PHARMACOEPIDEMIOLOGIST. BELKYS CATH NOTED TO LEFT SUBCLAVIAN DRESSING CLEAN DRY AND INTACT. NO SIGNS OF INFECTION OR INFILTRATION. PERIPHERAL IV SALINE LOCK 20 G NOTED TO LEFT FOREARM DRESSING DRY CLEAN AND INTACT. NO SIGNS OF INFECTION OR INFILTRATION. CALL LIGHT WITHIN REACH. BED AT LOWEST POSITION. CONTINUE TO MONITOR.
[2017-01-08] MEDS: MONTELUKAST 10 MG TABLET PO SCH (21:00)
[2017-01-08] MEDS: CEFTAZIDIME 1 GM in D5W 50 ML IV SCH (21:06)
[2017-01-08] MEDS: HYDROmorphone 1 MG INJ. 1 MG/ML AMPUL IVP PRN (23:49)
[2017-01-09] VITALS (34 sets, daily range): BP systolic 106–187; BP diastolic 50–118; PULSE 76–91; RESP 15–29; TEMP 97.2–98; O2SAT 87–99
[2017-01-09] MEDS: AZITHROMYCIN 500 MG in NS 250 ML IV SCH (02:05)
[2017-01-09] MEDS: ALBUTEROL SULFATE 0.083% 2.5 MG/3 ML VIAL.NEB INH SCH ×6 (02:20→23:05)
[2017-01-09] MEDS: IPRATROPIUM BROM 0.5 MG/2.5 ML VIAL.NEB (ATROVENT) INH SCH ×6 (02:21→23:05)
[2017-01-09] MEDS: metroNIDAZOLE 500 mg/NS 100 ML IV SCH ×3 (05:05→22:43)
[2017-01-09] MEDS: cloNIDine HCL 0.2 MG TABLET PO SCH ×4 (05:11→22:42)
--- NOTE | 2017-01-09 05:35 | NUR ---
FIO2 TITRATION RESPIRATORY THERAPIST TITRATED FIO2 UP TO 70%
[2017-01-09] MEDS: HYDROmorphone 1 MG INJ. 1 MG/ML AMPUL IVP PRN ×2 (05:46→11:05)
--- NOTE | 2017-01-09 06:00 | NUR ---
FIO2 TITRATION RESPIRATORY THERAPIST TITRATED FIO2 TO 80%
[2017-01-09 06:48] LABS: BASOPHILS % (AUTO) 0.1 % (0.0-2.0); EOSINOPHILS % (AUTO) 0.2 % (0.0-4.0); HEMATOCRIT 26.1 % (36-54); HEMOGLOBIN 8.3 g/dL (14.0-18.0); LYMPHOCYTES # (AUTO) 0.9 K/uL (1.0-5.5); LYMPHOCYTES % (AUTO) 5.6 % (20.5-51.5); MEAN CORPUSCULAR HEMOGLOBIN 27 pg (27-31); MEAN CORPUSCULAR HGB CONC 32 % (32-36); MEAN CORPUSCULAR VOLUME 84 fL (79.0-98.0); MONOCYTES # (AUTO) 1.6 K/uL (0.0-1.0); MONOCYTES % (AUTO) 9.9 % (1.7-9.3); NEUTROPHILS # (AUTO) 13.5 K/uL (1.8-7.7); NEUTROPHILS % (AUTO) 84.2 % (40.0-70.0); PLATELET COUNT (AUTO) 290 K/uL (130-430); RED BLOOD CELL COUNT(AUTO) 3.12 MIL/uL (4.2-6.2)
--- NOTE | 2017-01-09 07:47 | NUR ---
GAVE REPORT TO ONCOMING NURSE
--- NOTE | 2017-01-09 08:00 | NUR ---
AM Shift Assessment Received pt AAO x 2, nonverbal, able to make needs known. Pt denies any pain, no signs of distress noted. Respirations even and unlabored with trach to vent AC 18, TV 400, FiO2 80%. Skin warm and dry. Gigi cath on L chest intact, patent. IVSL 20G on LFA intact, patent, no erythema noted. Heart sounds regular. Adventitious breath sounds. Pulses present on extremities. Bowel sounds present. Pt is on low air mattress. Elevated heels with pillow. Bed locked in lowest position. Call light in reach. will continue to monitor.
[2017-01-09 08:06] LABS: ANION GAP 9 (5-15); CHLORIDE 98 mmol/L (98-107); GLUCOSE 139 mg/dL (70-99); POTASSIUM 4.8 mmol/L (3.5-5.1); SODIUM SERUM 133 mmol/L (136-145)
[2017-01-09 08:07] LABS: CALCIUM 8.2 mg/dL (8.4-11.0); CREATININE 5.71 mg/dL (0.55-1.30); TOTAL BILIRUBIN 0.2 mg/dL (0.0-1.0); UREA NITROGEN, BLOOD 61 mg/dL (8-21)
[2017-01-09 08:08] LABS: ALANINE AMINOTRANSFERASE 19 U/L (12-78); ALBUMIN 1.4 g/dL (3.4-4.8); ASPARTATE AMINOTRANSFERASE 13 U/L (10-37); THYROID STIMULATING HORMONE 3.84 uIu/mL (0.34-4.82); TOTAL PROTEIN, SERUM 6.1 g/dL (6.4-8.3)
[2017-01-09] MEDS: ENOXAPARIN SODIUM 30 MG/0.3 ML SYRINGE SUBCUT SCH (08:12)
--- NOTE | 2017-01-09 08:15 | NUR ---
Patient Round/Refusal of NG Tube Oral care and suctioning given. Explained to pt regarding need to have nutrients in stomach via NG tube due to cuffed tracheostomy. Pt shook head and refused and mouthed, "I don't want it." No PO medications given. Will continue to monitor.
[2017-01-09] MEDS: hydrALAZINE HCL 25 MG TABLET PO SCH ×4 (08:31→22:42)
[2017-01-09] MEDS: CARVEDILOL 25 MG TABLET (COREG) PO SCH ×3 (08:31→22:43)
[2017-01-09] MEDS: SUCRALFATE 1 GM TABLET PO SCH ×4 (08:31→22:42)
[2017-01-09] MEDS: DOCUSATE SODIUM 100 MG CAPSULE PO SCH (08:31)
[2017-01-09] MEDS: POLYETHYLENE GLYCOL 3350, 17 GM/ POWD.PACK PO SCH (08:32)
[2017-01-09] MEDS: amLODIPine BESYLATE 10 MG TABLET PO SCH (08:32)
[2017-01-09] MEDS: OMEPRAZOLE 20 MG CAPSULE.DR (PriLOSEC) PO SCH (08:33)
--- NOTE | 2017-01-09 10:14 | NUR ---
Dr. Greer Butterfield at bedside with pt. Dr. Butterfield aware of pt refusing NG tube and therefor not receiving PO meds. Will continue with plan of care.
--- NOTE | 2017-01-09 10:15 | NUR ---
Dr. Butterfield in to see pt.
[2017-01-09] MEDS: LORazepam 2 MG/ML VIAL IVP PRN (11:04)
--- NOTE | 2017-01-09 11:15 | NUR ---
Dr. Damon (for Dr. Scott) in to see pt. Dr. Damon aware of pt's complaint of difficulty breathing. New orders made, carried out. Will continue with plan of care.
[2017-01-09 11:16] LABS: ABG TOTAL HEMOGLOBIN 10.2 G/dL (12.0-18.0); BLOOD GAS BASE EXCESS -4.8 mmol/L (-3.0-3.0); BLOOD GAS PH 7.278 (7.350-7.450)
[2017-01-09 11:17] LABS: BLOOD GAS COHb% 0.8 % (0.5-1.5); BLOOD GAS HHB 14.3 % (0.0-6.0); BLOOD O2Hb% 84.8 % (94.0-97.0)
--- NOTE | 2017-01-09 11:19 | NUR ---
RT NOTE VENT CHANGE MADE AT THIS TIME PER MD ORDER AT BEDSIDE AFTER ABG RESULT AC 22 +5, NO RESP DISTRESS RECORDED. RN INFORMED
--- NOTE | 2017-01-09 13:50 | NUR ---
Dr. Nelda Lutz at bedside with pt. Dr. Lutz aware of pt refusing NG tube and discussed implications with pt. Pt agreed to insertion of NG tube. Will continue with plan of care.
--- NOTE | 2017-01-09 14:30 | NUR ---
NGT Attempt Pt agreed with Dr. Lutz to have NG tube placement for temporary feeding. Assessed for patent nostrils and measurements. Attempted insertion X2 in left nostril and right nostril, unsuccessful. Pt request to "take a break" with insertion attempts and try later. Will continue to monitor.
--- NOTE | 2017-01-09 16:15 | NUR ---
Dr. Arreola (in for Dr. Fernandes) in to see pt. New orders made, carried out. Will continue with plan of care.
--- NOTE | 2017-01-09 16:24 | NUR ---
Call for Consent for CTA with Contrast Contacted Lisa Major at [phone] twice, left voicemail and call back number. Also, contacted next of kin Valentino Teague at [phone], no answer, left voicemail and call back number.
[2017-01-09] MEDS: hydrALAZINE HCL 20 MG/ML VIAL IVP PRN (16:44)
--- NOTE | 2017-01-09 17:15 | NUR ---
Consent for CT Contrast Received phone call from pt's son, Valentino Teague. Obtained consent from son verified with Kenia TIAN, placed in chart. Son also updated on pt's status.
[2017-01-09] MEDS ORDERED: IOHEXOL 350 mgI/mL, 150 ML INFUS..BTL IV ONE (18:07)
--- NOTE | 2017-01-09 18:30 | NUR ---
CT Transport Pt transport out to CT accompanied by RN, RT, and tv technician. Pt noted with shortness of breath and distress during transport. Pt was returned to room and calmed down. Will continue to monitor.
--- NOTE | 2017-01-09 19:45 | NUR ---
Endorsement Endorsed plan of care to Mauricio RN via SBAR tool and round at bedside.
--- NOTE | 2017-01-09 20:00 | NUR ---
Initial note Received awake, alert x2 , non-verbal. Attempts to vocalize with mumbled muted voice. No c/o pain or discomfort, watching t.v. Respirations even and unlabored on trach to vent, tolerating settings ac22, FiO2 80%, TV 500, peep 5, O2 sat 100%. Left chest oneyda cath intact with no redness or swelling to insertion site. Left fa IV access intact & patent, no swelling or redness to insertion site. Able to move extremities. Turned and repositione on pillow support. HOB elevated. Bed in low, locked position. Call light within reach.
[2017-01-09] MEDS: CEFTAZIDIME 1 GM in D5W 50 ML IV SCH (21:47)
[2017-01-09] MEDS: MONTELUKAST 10 MG TABLET PO SCH ×2 (21:55→22:42)
--- NOTE | 2017-01-09 22:35 | NUR ---
NG TUBE PLACEMENT: NG tube placed to right nare. Placement checked by auscultation of instilled air into stomach and aspiration of gastric contents. Tubing taped in place to prevent dislodging. Patient tolerated well.
--- NOTE | 2017-01-09 22:47 | NUR ---
Blood sugar Fingerstick checked =143 mg/dL. No s/s of hypo/hyperglycemia. No coverage required.
--- NOTE | 2017-01-09 23:01 | NUR ---
Medications Due po medications given crushed via ng tube, flushed with 100 cc water. Tolerated well.
[2017-01-10] VITALS (37 sets, daily range): BP systolic 123–205; BP diastolic 57–106; PULSE 77–95; RESP 13–30; TEMP 97.6–98.3; O2SAT 95–100
--- NOTE | 2017-01-10 02:00 | NUR ---
Rounds Sleeping quietly, easily aroused. VItals stable. No c/o pain or discomfort. No shortness of breath noted. Call light placed within reach.
[2017-01-10] MEDS: ALBUTEROL SULFATE 0.083% 2.5 MG/3 ML VIAL.NEB INH SCH ×6 (03:13→23:10)
[2017-01-10] MEDS: IPRATROPIUM BROM 0.5 MG/2.5 ML VIAL.NEB (ATROVENT) INH SCH ×6 (03:13→23:10)
[2017-01-10] MEDS: AZITHROMYCIN 500 MG in NS 250 ML IV SCH (03:17)
[2017-01-10] MEDS: HYDROmorphone 1 MG INJ. 1 MG/ML AMPUL IVP PRN ×4 (04:56→21:58)
--- NOTE | 2017-01-10 05:00 | NUR ---
Hygiene/pain Incontinent of urine. Partial bed bath given, perineal care given. Shortness of breath noted on turning. Allowed to rest and elevated hob before completing bed bath. Breathing without difficulty after resting for a while. C/o abdominal pain rated 8/10. Dilaudid IV given as ordered. Turned and repositioned with pillow support. Call light placed within reach.
[2017-01-10] MEDS: cloNIDine HCL 0.2 MG TABLET PO SCH ×2 (05:04→14:00)
[2017-01-10] MEDS: metroNIDAZOLE 500 mg/NS 100 ML IV SCH ×3 (05:05→21:56)
[2017-01-10 06:50] LABS: BASOPHILS % (AUTO) 0.1 % (0.0-2.0); EOSINOPHILS % (AUTO) 0.2 % (0.0-4.0); HEMATOCRIT 26.1 % (36-54); HEMOGLOBIN 8.5 g/dL (14.0-18.0); LYMPHOCYTES % (AUTO) 6.2 % (20.5-51.5); MEAN CORPUSCULAR HEMOGLOBIN 27 pg (27-31); MEAN CORPUSCULAR HGB CONC 32 % (32-36); MEAN CORPUSCULAR VOLUME 83 fL (79.0-98.0); MONOCYTES # (AUTO) 1.9 K/uL (0.0-1.0); NEUTROPHILS # (AUTO) 12.6 K/uL (1.8-7.7); PLATELET COUNT (AUTO) 341 K/uL (130-430); RED BLOOD CELL COUNT(AUTO) 3.15 MIL/uL (4.2-6.2); RED CELL DISTRIBUTION WIDTH 12.9 % (9.0-15.0); WHITE BLOOD COUNT (AUTO) 15.5 K/uL (4.8-10.8)
--- NOTE | 2017-01-10 07:00 | NUR ---
Endorsement of care Resting quietly in bed listening to TV. No c/o pain or discomfort. All needs attended to. Report given to Toshia TIAN at bedside via SBAR.
[2017-01-10 07:02] LABS: ANION GAP 14 (5-15); CALCIUM 8.4 mg/dL (8.4-11.0); CHLORIDE 98 mmol/L (98-107); CREATININE 6.67 mg/dL (0.55-1.30); GLUCOSE 152 mg/dL (70-99); POTASSIUM 4.7 mmol/L (3.5-5.1); SODIUM SERUM 133 mmol/L (136-145); UREA NITROGEN, BLOOD 75 mg/dL (8-21)
--- NOTE | 2017-01-10 07:40 | NUR ---
AM Shift Assessment Received pt AAOx2, nonverbal, able to make needs known. Pt denies any pain or discomfort at this time. Respirations even and unlabored with tracheostomy to vent: AC 22, TV 500, FiO2 80%, PEEP 5. No SOB or signs of distress noted. Skin warm and dry. Gigi cath R upper chest, intact, patent, no erythema noted. IVSL RFA 20G intact, patent, no erythema noted. NG tube in place in R nare, auscultated for placement, aspirated less than 5 ml of green residual. Heart sounds regular, SR on monitor, HR 78, pulses present on extremities. Adventitious breath sounds. Bowel sounds present x4 quads. Abdomen soft and nontender. Bed locked in lowest position. Call light in reach. Will continue to monitor.
[2017-01-10 07:56] LABS: BLOOD GAS PH 7.326 (7.350-7.450)
[2017-01-10 07:57] LABS: ABG TOTAL HEMOGLOBIN 8.9 G/dL (12.0-18.0); BLOOD GAS BASE EXCESS -6.6 mmol/L (-3.0-3.0); BLOOD GAS COHb% 0.9 % (0.5-1.5); BLOOD GAS HHB 2.7 % (0.0-6.0); BLOOD O2Hb% 96.2 % (94.0-97.0)
--- NOTE | 2017-01-10 08:00 | NUR ---
Patient Round Administered oral care and suctioning. Repositioned pt. Administered NG tube meds. Pt denies any pain or discomfort. No acute distress noted. Will continue to monitor.
[2017-01-10] MEDS: ENOXAPARIN SODIUM 30 MG/0.3 ML SYRINGE SUBCUT SCH (09:31)
[2017-01-10] MEDS: POLYETHYLENE GLYCOL 3350, 17 GM/ POWD.PACK PO SCH (09:33)
[2017-01-10] MEDS: SUCRALFATE 1 GM TABLET PO SCH ×2 (09:33→15:00)
[2017-01-10] MEDS: hydrALAZINE HCL 25 MG TABLET PO SCH ×3 (09:33→17:00)
[2017-01-10] MEDS: DOCUSATE SODIUM 100 MG CAPSULE PO SCH (09:33)
[2017-01-10] MEDS: OMEPRAZOLE 20 MG CAPSULE.DR (PriLOSEC) PO SCH (09:34)
[2017-01-10] MEDS: CARVEDILOL 25 MG TABLET (COREG) PO SCH (09:34)
[2017-01-10] MEDS: amLODIPine BESYLATE 10 MG TABLET PO SCH (09:35)
--- NOTE | 2017-01-10 10:00 | NUR ---
Patient Round Offered to reposition pt, pt refused to be turned and states he's "comfortable." Discussed with pt on risks and benefits of turning, pt refuses. Will continue to monitor.
[2017-01-10] MEDS: LORazepam 2 MG/ML VIAL IVP PRN ×2 (10:14→14:41)
--- NOTE | 2017-01-10 10:54 | NUR ---
Transport to CT Angiogram Pt stable for transfer and medicated with dilaudid and ativan PRN. Pt connected to portable monitor. Pt transfer to CT scan accompanied by pietro, RN, and RT. VS stable, afebrile, no SOB or signs of distress noted. Will continue to monitor.
--- NOTE | 2017-01-10 11:28 | NUR ---
Return from CT Angiogram Pt tolerate procedure well with continuous monitoring. Pt return to room accompanied by RN, RT, and mold tooling technician. VS stable, afebrile. Connected pt to room monitor. No SOB or signs of distress noted. Pt denies any pain or discomfort. Will continue to monitor.
[2017-01-10 11:49] LABS: NEUTROPHILS % (AUTO) 81.5 % (40.0-70.0)
--- NOTE | 2017-01-10 14:24 | NUR ---
Orders Dr. Lutz paged and return call. Dr. Lutz aware of NG tube placement, CT angiogram, and dialysis. Dr. Lutz order for start of NG tube feeding for dinner. Will continue with plan of care.
--- NOTE | 2017-01-10 15:30 | NUR ---
Dialysis Pt receiving dialysis. No acute distress noted. Will continue to monitor.
[2017-01-10] MEDS: HYDROcodone/ACETAMIN 5-325 MG TAB (NORCO/ VICODIN) PO PRN (17:38)
[2017-01-10] MEDS ORDERED: ACETAMINOPHEN 650 MG/20.3 ML UDC NG PRN (18:00)
--- NOTE | 2017-01-10 18:27 | NUR ---
Dr. Lutz in to see pt. Will continue with plan of care.
--- NOTE | 2017-01-10 18:47 | NUR ---
Dialysis Complete Pt noted with elevated SBP during dialysis. Dr. Lutz aware of pt's elevated BP. Dr. Lutz states, "Just watch for BP after dialysis." Post dialysis SBP 144. Pt denies any pain or discomfort. No acute distress noted.
--- NOTE | 2017-01-10 19:04 | NUR ---
Closing Note/Endorsement Pt remains calm and denies any pain or discomfort. Pt wishes to "listen" to television. Call light in reach. Endorsed plan of care to Ayana TIAN via SBAR tool and round at bedside.
--- NOTE | 2017-01-10 19:05 | NUR ---
ASSUMPTION OF CARE Received report from Toshia TIAN. Care of pt assumed.
--- NOTE | 2017-01-10 19:30 | NUR ---
PM ASSESSMENT pt AAOx4, nonverbal, able to communicate with hand movements and mouthing words. Pt able to follow commands. Pt NSR on heart monitor with palpable pulses and brisk cap refill. Pt trach to Vent with Portex size 7, vent settings AC 22, TV 500, FIO2 80%, and PEEP 5. Pt tolerating current vent settings and no s/s distress. Pt with NGT to L nare, auscultated for placement, active bowel sounds x4. Pt states ability to call for urinal to void. pt with oneyda catheter to L chest, dressing clean and dry. 20g IV to L FA with good flush. pt received dialysis today with 3L output. HOB at 45 degrees. Pt denies pain at this time. Bed in lowest position and call light within reach. Will continue to monitor. Addendum: 01/10/17 at 2305 by Ayana Valenzuela RN NGT to R nare. Addendum: 01/11/17 at 0325 by Ayana Valenzuela RN FIO2 60%
--- NOTE | 2017-01-10 21:00 | NUR ---
LINEN CHANGE pt linen observed to soiled with urine. linens changed and pt cleaned. skin care done. CHG bath done. pt turned. Pt tolerated well. Bed in lowest position and call light within reach.
[2017-01-10] MEDS: CEFTAZIDIME 1 GM in D5W 50 ML IV SCH (21:52)
[2017-01-10] MEDS: SUCRALFATE 1 GM/10 ML UDC NG SCH (21:55)
[2017-01-10] MEDS: hydrALAZINE HCL 25 MG TABLET NG SCH (21:55)
[2017-01-10] MEDS: MONTELUKAST 10 MG TABLET NG SCH (21:56)
[2017-01-10] MEDS: CARVEDILOL 25 MG TABLET (COREG) NG SCH (21:56)
[2017-01-10] MEDS: cloNIDine HCL 0.2 MG TABLET NG SCH (21:57)
[2017-01-10] MEDS: ZOLPIDEM TARTRATE 5 MG TABLET NG PRN (21:58)
--- NOTE | 2017-01-10 22:00 | NUR ---
PAIN Pt c/o RUQ ABD pain 8/10 and requesting pain medication. Pt also requesting sleeping pill. PRN Dilaudid and Ambien administered per MD order. Will monitor and reassess pt.
--- NOTE | 2017-01-10 22:30 | NUR ---
TUBEFEEDING tubefeeding started per MD. HOB elevated. pt educated on reason for tubefeeding, pt nods in understanding.
[2017-01-11] VITALS (36 sets, daily range): BP systolic 126–181; BP diastolic 54–88; PULSE 69–93; RESP 15–26; TEMP 98–98.9; O2SAT 93–99
--- NOTE | 2017-01-11 00:40 | NUR ---
VOIDING Pt called asking for urinal to void. Pt given urinal and voided 100ml vicente urine with RN assistance.
[2017-01-11] MEDS: AZITHROMYCIN 500 MG in NS 250 ML IV SCH (02:01)
--- NOTE | 2017-01-11 02:30 | NUR ---
ROUNDS Pt awoken by sound. Pt asking what time it is. Updated pt on time and pt suctioned per request. Tolerated well, no s/s distress. Pt encouraged to get more rest. Pt agreed and stated he was comfortable. Bed in lowest position and call light within reach. Will monitor.
[2017-01-11] MEDS: ALBUTEROL SULFATE 0.083% 2.5 MG/3 ML VIAL.NEB INH SCH ×6 (03:00→23:50)
[2017-01-11] MEDS: IPRATROPIUM BROM 0.5 MG/2.5 ML VIAL.NEB (ATROVENT) INH SCH ×6 (03:01→23:50)
--- NOTE | 2017-01-11 04:10 | NUR ---
ROUNDS pt observed to be resting comfortably in bed. FIO2 titrated to 50% at 0300 by RT. Pt tolerating current vent settings well. No s/s distress. Will monitor pt. Bed in lowest position and call light within reach.
--- NOTE | 2017-01-11 04:58 | NUR ---
REPORT Report given to Princess TIAN at bedside. All care endorsed.
--- NOTE | 2017-01-11 05:00 | NUR ---
RECEIVED REPORT FROM OFF GOING RN, PT IN NO DISTRESS.TURNED HIM ON HIS RT SIDE. STARTED C/O CHEST PAIN, PT HAVING ANXIETY ATTACK AND GETTING UPSET. MED WITH DILAUDID PER ORDER. PT CALM NOW.
[2017-01-11] MEDS: HYDROmorphone 1 MG INJ. 1 MG/ML AMPUL IVP PRN ×3 (05:04→18:28)
[2017-01-11] MEDS: metroNIDAZOLE 500 mg/NS 100 ML IV SCH ×3 (05:39→22:06)
[2017-01-11] MEDS: cloNIDine HCL 0.2 MG TABLET NG SCH ×3 (05:40→22:09)
[2017-01-11] MEDS: INSULIN REGULAR, HUMAN 100 UNITS/ML, 10 ML VIAL (novoLIN R) SUBCUT PRN ×4 (06:38→20:19)
[2017-01-11 06:51] LABS: ANION GAP 12 (5-15); CALCIUM 8.5 mg/dL (8.4-11.0); CHLORIDE 99 mmol/L (98-107); CREATININE 5.23 mg/dL (0.55-1.30); GLUCOSE 171 mg/dL (70-99); POTASSIUM 4.2 mmol/L (3.5-5.1); SODIUM SERUM 135 mmol/L (136-145); UREA NITROGEN, BLOOD 50 mg/dL (8-21)
[2017-01-11 07:00] LABS: BASOPHILS % (AUTO) 0.2 % (0.0-2.0); EOSINOPHILS % (AUTO) 0.2 % (0.0-4.0); HEMATOCRIT 25.7 % (36-54); HEMOGLOBIN 8.4 g/dL (14.0-18.0); LYMPHOCYTES % (AUTO) 7.6 % (20.5-51.5); MEAN CORPUSCULAR HEMOGLOBIN 27 pg (27-31); MEAN CORPUSCULAR HGB CONC 33 % (32-36); MEAN CORPUSCULAR VOLUME 83 fL (79.0-98.0); MONOCYTES # (AUTO) 1.3 K/uL (0.0-1.0); MONOCYTES % (AUTO) 10.1 % (1.7-9.3); NEUTROPHILS # (AUTO) 10.5 K/uL (1.8-7.7); NEUTROPHILS % (AUTO) 81.9 % (40.0-70.0); PLATELET COUNT (AUTO) 356 K/uL (130-430); WHITE BLOOD COUNT (AUTO) 12.8 K/uL (4.8-10.8)
--- NOTE | 2017-01-11 07:00 | NUR ---
PT RESTING WELL. REPORT GIVEN TO ON COMING RN.
--- NOTE | 2017-01-11 07:15 | NUR ---
Meeker of care Pt resting in bed in vent setting: AC 22, TV500, fio2 50% Peep 5. No SOB. Vital signs stable. Pt demonstrates agitation, anxiety. Calm environment provided. Personalized environment. Assisted with needs. Denies pain. In no acute distress. Call light in reach. Will continue to monitor.
[2017-01-11] MEDS: LORazepam 2 MG/ML VIAL IVP PRN ×2 (07:45→13:12)
[2017-01-11 08:03] LABS: ABG TOTAL HEMOGLOBIN 9.2 G/dL (12.0-18.0); BLOOD GAS BASE EXCESS -0.2 mmol/L (-3.0-3.0); BLOOD GAS COHb% 1.3 % (0.5-1.5); BLOOD GAS PH 7.419 (7.350-7.450); BLOOD O2Hb% 92.3 % (94.0-97.0)
[2017-01-11] MEDS: PANTOPRAZOLE GRANULES PACKET 40 MG NG SCH (08:06)
[2017-01-11] MEDS: SUCRALFATE 1 GM/10 ML UDC NG SCH ×3 (08:06→20:02)
[2017-01-11] MEDS: amLODIPine BESYLATE 10 MG TABLET NG SCH (08:07)
[2017-01-11] MEDS: ENOXAPARIN SODIUM 30 MG/0.3 ML SYRINGE SUBCUT SCH (08:07)
[2017-01-11] MEDS: POLYETHYLENE GLYCOL 3350, 17 GM/ POWD.PACK NG SCH (08:07)
[2017-01-11] MEDS: CARVEDILOL 25 MG TABLET (COREG) NG SCH ×2 (08:10→20:03)
[2017-01-11] MEDS: hydrALAZINE HCL 25 MG TABLET NG SCH ×4 (08:11→20:05)
[2017-01-11] MEDS: DOCUSATE SODIUM 100 MG CAPSULE PO SCH (08:12)
[2017-01-11] MEDS: PREDNISONE 20 MG TABLET PO SCH (08:12)
[2017-01-11] MEDS: BUDESONIDE 0.5 MG/2 ML AMPUL.NEB INH SCH ×2 (09:00→19:11)
--- NOTE | 2017-01-11 09:24 | NUR ---
Nursing Update Pt resting well. No SOB. Calm. No sign of pain/discomfort. Will continue to monitor.
--- NOTE | 2017-01-11 11:32 | NUR ---
Nursing Update NO SOB. Able to carry on conversation. Pt asked to call [facility] to save his bed and to make that request to Vaishnavi-charge nurse of [facility]. Left a message to case management to relay pt's request. Denies pain at this time. Personalized environment. All needs met.
--- NOTE | 2017-01-11 11:45 | NUR ---
Dr. Ramirez MAde aware that pt met severe sepsis risk accdg to SEPSIS RISK intervention tab. MD aware. No new orders at this time.
--- NOTE | 2017-01-11 12:59 | NUR ---
WOUND RE-EVALUATION: Patient received in a [place] Bed with an IsoFlex COLTON mattress with low air-loss therapy initiated, awake, alert, oriented, gets agitated easily. Patient is unable to turn independently. Corbin Score is a 15. Intrinsic factors that delay wound healing: COPD, Chronic Respiratory Failure, Diabetes Mellitus Type 2, Peripheral Arterial Disease, Anemia of Chronic Disease. Extrinsic factors that delay wound healing: Decreased mobility. Microbiology: Blood Culture x 2 negative. Wound Assessment: 1) Sacral-Coccygeal Area: Pressure Ulcer, present on admission. Wound bed is 50% yellow tissue, 50% red tissue. No odor, no drainage. robert-wound intact. Recommend: Cleanse wound with normal saline. Place moisture barrier cream onto robert-wound. Put Venelex onto wound bed. Cover with foam dressing. Perform wound care daily, and as needed for dressing soiling or dislodgement. 2) Right Heel: Pressure Ulcer, present on admission. Wound bed is 100% dull pink tissue. No odor, no drainage. robert-wound intact. Recommend: Cleanse wound with normal saline. Place moisture barrier cream onto robert-wound. Put Venelex ointment onto wound bed. Cover with foam dressing. Perform wound care daily, and as needed for dressing soiling or dislodgement. Also recommend continue: Reposition patient side to side only every 2 hours with pillow support, and off-load pressure areas with pillows for pressure re-distribution. Offload, elevate and float bilateral heels with pillows. Perform skin care and monitor skin integrity Q shift. Use moisture barrier cream on buttocks and other moisture susceptible areas QID and as needed for soiling. Maintain patient on low air-loss therapy.
--- NOTE | 2017-01-11 13:00 | NUR ---
Wound care Wound care done with wound nurse ASMITA Wroley to both sacrum and right heel. Pt tolerated procedure well.
[2017-01-11] MEDS ORDERED: BALSAM PERU/CASTOR OIL 60 GM OINT...G. TP PRN (14:30)
--- NOTE | 2017-01-11 14:30 | NUR ---
Shave Pt's facial hair was shaved as per pt's request with electric razor. No bleeding noted. Pt tolerated the procedure well and showed enhanced self esteem - smiling.
--- NOTE | 2017-01-11 15:00 | NUR ---
Spoke with pt's son Valentino Spoke with pt's son as requested by pt to ask them to visit him when they get the chance and other messages asked by pt. Told pt that son said they will visit at the beginning of January. Updated the son re: pt's condition, including labs and vent settings and answered all questions. Pt is calm at this time, smiling, cooperative with care. Call light in reach. Personalized environment. Educated with the buttons of call light as for a blind person. Will continue to monitor.
--- NOTE | 2017-01-11 17:00 | NUR ---
Nursing Remained no SOB. Calm environment provided. Kept comfortable. Call light in reach.
--- NOTE | 2017-01-11 19:10 | NUR ---
Report given to MY, RN and endorsed all care.
--- NOTE | 2017-01-11 19:30 | NUR ---
PM ASSESSMENT PT RESTING IN BED, ALERT AND ORIENTED TIMES 4, CALM. PT DENIES ANY PAIN THIS TIME. SINUS RHYTHM ON STEEL CHIPPER. TRACH TO VENT AC 22 TV 500 FIO2 50% PEEP 5. O2 SAT 98%. BELKYS CATH NOTED ON LEFT SUBCLAVIAN DRESSING INTACT. PERIPHERAL IV TKO 20G TO LEFT FOREARM DRESSING INTACT. NO SIGNS OF INFECTION OR INFILTRATION. NASOGASTRIC TUBE NOTED. DIABETISOURCE RUNNING @ 45 ML/HR. NO RESIDUAL NOTED. CALL LIGHT WITHIN REACH. BED AT LOWEST POSITION. CONTINUE TO MONITOR.
[2017-01-11] MEDS: MONTELUKAST 10 MG TABLET NG SCH (20:02)
[2017-01-11] MEDS: CEFTAZIDIME 1 GM in D5W 50 ML IV SCH (20:03)
[2017-01-12] VITALS (35 sets, daily range): BP systolic 138–177; BP diastolic 54–97; PULSE 63–93; RESP 14–28; TEMP 97.8–98.5; O2SAT 95–100
[2017-01-12] MEDS: IPRATROPIUM BROM 0.5 MG/2.5 ML VIAL.NEB (ATROVENT) INH SCH ×6 (02:22→23:21)
[2017-01-12] MEDS: ALBUTEROL SULFATE 0.083% 2.5 MG/3 ML VIAL.NEB INH SCH ×6 (02:22→23:21)
[2017-01-12] MEDS: HYDROmorphone 1 MG INJ. 1 MG/ML AMPUL IVP PRN ×3 (03:00→13:52)
[2017-01-12] MEDS: hydrALAZINE HCL 20 MG/ML VIAL IVP PRN ×2 (04:44→10:06)
--- NOTE | 2017-01-12 05:00 | NUR ---
Book Critic at pt's bedside to draw am lab
[2017-01-12] MEDS: cloNIDine HCL 0.2 MG TABLET NG SCH ×3 (05:50→21:08)
[2017-01-12] MEDS: metroNIDAZOLE 500 mg/NS 100 ML IV SCH ×3 (05:51→21:26)
[2017-01-12] MEDS: INSULIN REGULAR, HUMAN 100 UNITS/ML, 10 ML VIAL (novoLIN R) SUBCUT PRN ×4 (06:10→21:12)
[2017-01-12 06:39] LABS: ALANINE AMINOTRANSFERASE 15 U/L (12-78); ALBUMIN 1.5 g/dL (3.4-4.8); ANION GAP 10 (5-15); ASPARTATE AMINOTRANSFERASE 10 U/L (10-37); CALCIUM 8.4 mg/dL (8.4-11.0); CHLORIDE 99 mmol/L (98-107); GLUCOSE 219 mg/dL (70-99); POTASSIUM 4.5 mmol/L (3.5-5.1); SODIUM SERUM 135 mmol/L (136-145); TOTAL BILIRUBIN 0.2 mg/dL (0.0-1.0); TOTAL PROTEIN, SERUM 6.2 g/dL (6.4-8.3); UREA NITROGEN, BLOOD 65 mg/dL (8-21)
[2017-01-12 06:48] LABS: EOSINOPHILS % (AUTO) 0.1 % (0.0-4.0); LYMPHOCYTES # (AUTO) 0.7 K/uL (1.0-5.5); MEAN CORPUSCULAR VOLUME 83 fL (79.0-98.0); MONOCYTES # (AUTO) 1.1 K/uL (0.0-1.0); RED CELL DISTRIBUTION WIDTH 12.8 % (9.0-15.0)
[2017-01-12 06:57] LABS: HEMATOCRIT 24.6 % (36-54); LYMPHOCYTES % (AUTO) 5.3 % (20.5-51.5); MEAN CORPUSCULAR HEMOGLOBIN 26 pg (27-31); MEAN CORPUSCULAR HGB CONC 32 % (32-36); MONOCYTES % (AUTO) 8.4 % (1.7-9.3); NEUTROPHILS # (AUTO) 11.1 K/uL (1.8-7.7); NEUTROPHILS % (AUTO) 86.2 % (40.0-70.0); PLATELET COUNT (AUTO) 307 K/uL (130-430); RED BLOOD CELL COUNT(AUTO) 2.97 MIL/uL (4.2-6.2); WHITE BLOOD COUNT (AUTO) 12.9 K/uL (4.8-10.8)
[2017-01-12 07:05] LABS: HEMOGLOBIN 7.8 g/dL (14.0-18.0)
--- NOTE | 2017-01-12 07:15 | NUR ---
Hanson of care Received report from My,RN. Pt resting in bed in vent, no SOB. Able to make needs known. Tube feeding ongoing via Ngt. In no distress. Call light in reach. Will continue to monitor.
[2017-01-12] MEDS: BUDESONIDE 0.5 MG/2 ML AMPUL.NEB INH SCH ×2 (07:31→19:12)
--- NOTE | 2017-01-12 07:31 | NUR ---
RT NOTES Vent settings to SIMV [address] Scott's order. No immediate adverse reactions noted. Will monitor pt.
--- NOTE | 2017-01-12 07:56 | NUR ---
Paged Dr. Lutz to report Hgb 7.8. Awaiting MD call back.
[2017-01-12] MEDS: ENOXAPARIN SODIUM 30 MG/0.3 ML SYRINGE SUBCUT SCH (08:14)
[2017-01-12] MEDS: DOCUSATE SODIUM 100 MG CAPSULE PO SCH (08:14)
[2017-01-12] MEDS: SUCRALFATE 1 GM/10 ML UDC NG SCH ×3 (08:14→21:06)
--- NOTE | 2017-01-12 08:20 | NUR ---
Spoke to Dr. Lutz and reported HGB 7.7. Orders obtained. Addendum: 01/12/17 at 1938 by Vanessa Pickett RN Correction. Typographical error: Reported 7.8 Hgb to
[2017-01-12] MEDS: POLYETHYLENE GLYCOL 3350, 17 GM/ POWD.PACK NG SCH (08:25)
[2017-01-12] MEDS: PREDNISONE 20 MG TABLET PO SCH (08:25)
[2017-01-12] MEDS: hydrALAZINE HCL 25 MG TABLET NG SCH ×4 (08:25→21:09)
[2017-01-12] MEDS: CARVEDILOL 25 MG TABLET (COREG) NG SCH ×2 (08:26→21:07)
[2017-01-12] MEDS: PANTOPRAZOLE GRANULES PACKET 40 MG NG SCH (08:27)
[2017-01-12] MEDS: amLODIPine BESYLATE 10 MG TABLET NG SCH (08:27)
[2017-01-12] MEDS: BALSAM PERU/CASTOR OIL 60 GM OINT...G. TP SCH (09:22)
[2017-01-12 10:09] LABS: HEPATITIS A AB, IgM Negative (Negative); HEPATITIS B CORE AB, IgM Negative (Negative); HEPATITIS B SURFACE AG Negative (Negative)
--- NOTE | 2017-01-12 11:30 | NUR ---
Nutrition F/U Admitting Diagnosis Pneumonia, atypical chest pain, severe protein and caloric malnutrition Past Medical History COPD w/chronic respiratory failure on T-bar, T2DM, peripheral artery disease, essential HTN, CKD, anemia, GERD, chronic constipation per MD notes Pertinent Medications prednisone, miralax, protonix, norco, ativan, dulcolax suppository, SSI, colace, zofran Current Diet Order/Nutrition Support Diabetisource AC at 45 ml/hr via NGT x2 days Height (Feet) 5 feet Height (Inches) 9.00 inches Weight (Pounds) 270 pounds (admission) Weight (Calculated Kilograms) 122.881030 kilograms Patient Weight 122.47 kg Body Mass Index 39.87 kg/m2 (obesity class II) Bonnie/Adjusted Body Weight IBW 160 lb (73 kg); 169% of IBW; Adjusted IBW: 188 lb (85 kg) Estimated Needs 4750-0472 kcal/day (30-35 kcal/kg IBW for COPD, malnutrition, wound healing) NEW Grams of Protein per Day 88-102 gm/day (1.2-1.4 g/kg IBW for CKD on HD, malnutrition, wound healing) Fluid Intake Goal Per MD for CKD Pertinent Labs WBC 12.9 H (improving), Na 135 L, K 4.5 WNL (improved), BUN 65 H, CRE 6.3 H, BG 219 H, POC BG 216 H, Hgb 7.8 L, Hct 24.6 L, AST 10 WNL (improved), ALB 1.5 L Other Subjective Data Physical assessment: pt seen resting in bed, +awake, +intubated, +vent support, and TF hung but not infusing; RN reports that pt has been tolerating TF well , no residuals (TF was likely held for meds/turning pt) Pt had placement of Gigi catheter on 01/08/17 TF Intakes: 360 ml 01/12/17; Residuals: 15 ml 01/12/17 GI Integrity: abd is soft w/ active bowel sounds; last BM x1 01/11/17; RN confirms last BM was yesterday Skin integrity: Corbin scale of 14; per Ophthalmic Dispenser note 01/11/17: 1) Sacral-Coccygeal Area: Pressure Ulcer, present on admission. 2) Right Heel: Pressure Ulcer, present on admission. Plans/procedures: PRBC x2 units and dialysis, as well as weaning pt off of vent support today per RN report Current TF regimen: adequate and appropriate for acute state, critically ill/obese condition Problem, Etiology, Signs/Symptoms (modified) Obesity related to self-monitoring deficit as evidenced by BMI 39.9 and 169% of IBW. *ongoing Increased metabolic needs related to COPD and PNA as evidenced by WBC 12.9 and increased estimated nutritional needs for energy. *ongoing Expected Outcomes or Goals 1. Monitor tolerance to EN and PO intakes with goal of meeting at least 50-60% of estimated needs with acceptable tolerance 2. Labs trending within normal limits 3. Weight loss, weight maintenance 4. Improved skin integrity, wound healing 5. Normal GI function Dietitian Recommendations * Recommend continuing Diabetisource AC at 45 ml/hr via NGT Provides: 1296 kcal/day, 65 gm protein/day, and 883 ml free water/day Meets: 59% of low end of estimated caloric needs and 74% of low end of estimated protein needs * Consider nephrovite and VIT C for wound healing Follow Up Mod Risk: F/U in 3-5 days Addendum: 01/12/17 at [address] Nutrition Consult (Wounds) received 01/07/17 2099
--- NOTE | 2017-01-12 13:15 | NUR ---
Nursing Update Pt resting in bed. No SOB. Calm and cooperative with care. Denies pain. Call light in reach. Will continue to monitor.
[2017-01-12] MEDS: ALBUTEROL SULFATE 0.083% 2.5 MG/3 ML VIAL.NEB INH PRN (13:56)
[2017-01-12] MEDS: IPRATROPIUM BROM 0.5 MG/2.5 ML VIAL.NEB (ATROVENT) INH PRN (13:56)
--- NOTE | 2017-01-12 14:00 | NUR ---
Dialysis started by Dialysis nurse.
--- NOTE | 2017-01-12 14:00 | NUR ---
Pt refused to turn at this time Pt states he is comfortable and does not want to turn. Risks and benefits explained. Still refused.
--- NOTE | 2017-01-12 14:20 | NUR ---
Blood transfusion started by dialysis. Addendum: 01/12/17 at 1443 by Vanessa Pickett RN *by dialysis nurse
[2017-01-12] MEDS ORDERED: HEPARIN SODIUM, PORCINE 10,000 UNITS/ 10 ML VIAL IV ONE (16:30)
--- NOTE | 2017-01-12 17:00 | NUR ---
Dialysis Done 3L reported out. Pt tolerated well.
--- NOTE | 2017-01-12 18:00 | NUR ---
Nursing Pt No SOB. Calm. NO distress.
--- NOTE | 2017-01-12 18:15 | NUR ---
RT NOTES HHN tx given via inline w/ 2.5mg albuterol and 0.5mg atrovent. Will endorse to NOC shift RT.
--- NOTE | 2017-01-12 19:15 | NUR ---
Gave report to ASMITA Carty and endorsed all care. Pt reports no pain. No distress.
--- NOTE | 2017-01-12 19:30 | NUR ---
RT NOTES REC'D PT ON VENT WITH SETTINGS OF SIMV6/500/PS10/+5/50% VENT AND APNEA ALARMS SET AND FUNCTIONING. MED NEB TX GIVEN INLINE WITHOUT ADVERSE REACTION NOTED. TRACH IS MIDLINE AND SECURE. EQUAL BILATERAL CHEST RISE PRESENT. SXND PRN FOR SMALL AMOUNT OF THICK PALE YELLOW SECRETIONS. BS SCATTERED RONCHI AND MILD INSPIRATORY WHEEZE. PT TOLERATE CURRENT VENT SETTINGS. NO RESP DISTRESS NOTED. AMBU BAG IS AT BEDSIDE.
--- NOTE | 2017-01-12 20:00 | NUR ---
Initial Notes Received patient with Machelle TIAN. Patient laying in bed, awake, alert, oriented, nonverbal with trach but able to mouth needs. Patient denies any acute distress or pain at this time. Breathing even and unlabored on mechanical ventilator, settings SIMV 6, TV 500, PEEP 5, Support pressure 10, FiO2 50%. IV site to left forearm #20, patent/clean/dry. Gigi cath noted left chest wall, dressing clean/dry/intact. Wounds noted to left heel and coccyx, dressing clean/dry/intact. Educated patient on use of call light for assistance and fall precautions, patient mouthed understanding. Fall precautions in place, bed lowest position, brakes on, side rails up x 3, bed alarm in use, call light in hand. Will continue to monitor for changes and safety.
[2017-01-12] MEDS: LORazepam 2 MG/ML VIAL IVP PRN (20:45)
[2017-01-12] MEDS: CEFTAZIDIME 1 GM in D5W 50 ML IV SCH (20:51)
[2017-01-12] MEDS: MONTELUKAST 10 MG TABLET NG SCH (21:07)
--- NOTE | 2017-01-12 22:00 | NUR ---
Rounds Patient resting in bed, awake, listening to TV. Patient denies any acute distress or pain. Breathing even and unlabored on mech vent. Patient placed on bedpan, no BM but patient passed large amounts of gas. Needs addressed. Call light in hand, will continue to monitor.
--- NOTE | 2017-01-12 23:03 | NUR ---
Trach Suction Provided Trach suctioned provided, moderate amount of clear thin secretions, patient tolerated well.
[2017-01-13] VITALS (37 sets, daily range): BP systolic 125–190; BP diastolic 76–137; PULSE 68–89; RESP 17–37; TEMP 96.1–97.9; O2SAT 91–100
[2017-01-13] MEDS: hydrALAZINE HCL 20 MG/ML VIAL IVP PRN ×2 (00:07→23:38)
--- NOTE | 2017-01-13 00:13 | NUR ---
Notes Patient resting in bed with eyes closed, easily aroused. Patient denies any acute distress or pain. Breathing even and unlabored on mech vent. Trach suction provided, patient tolerated well. Medicated patient for elevated BP per MD orders. Patient refusing to be turned at this time, educated patient on importance, patient continue to refuse. Call light in hand, fall precautions in place. Will continue to monitor for changes and safety.
[2017-01-13] MEDS: HYDROmorphone 1 MG INJ. 1 MG/ML AMPUL IVP PRN ×2 (00:26→05:21)
[2017-01-13] MEDS: LORazepam 2 MG/ML VIAL IVP PRN ×6 (02:54→19:56)
--- NOTE | 2017-01-13 03:00 | NUR ---
Medicated for agitation and anxiety. Medicated patient for agitation and anxiety per MD orders. Will continue to monitor. Dressing changed performed on right heel wound. Patient refusing to allow RN to complete dressing change for coccyx wound at this time. Will attempt at a later time. Call light in hand, will continue to monitor.
[2017-01-13] MEDS: ALBUTEROL SULFATE 0.083% 2.5 MG/3 ML VIAL.NEB INH SCH ×6 (03:30→23:16)
[2017-01-13] MEDS: IPRATROPIUM BROM 0.5 MG/2.5 ML VIAL.NEB (ATROVENT) INH SCH ×6 (03:30→23:16)
--- NOTE | 2017-01-13 04:15 | NUR ---
Hygiene and Wound Care Hygiene care and coccyx wound dressing changed preformed. Patient tolerated well. Patient denies any acute distress or pain at this time. Breathing even and unlabored on mech vent. HOB elevated, patient tolerating NGT feeding. Call light in hand, fall precautions in place. Will continue to monitor.
[2017-01-13] MEDS: metroNIDAZOLE 500 mg/NS 100 ML IV SCH ×3 (05:07→21:33)
[2017-01-13] MEDS: cloNIDine HCL 0.2 MG TABLET NG SCH ×3 (05:08→21:33)
[2017-01-13] MEDS: INSULIN REGULAR, HUMAN 100 UNITS/ML, 10 ML VIAL (novoLIN R) SUBCUT PRN ×4 (06:11→20:47)
--- NOTE | 2017-01-13 06:27 | NUR ---
Closing Notes Patient resting in bed, awake. Patient denies any acute distress or pain at this time. Breathing even and unlabored on mech vent. IV site patent/clean/dry, no S/S infection/infiltration noted. HOB elevated, patient tolerating NGT feeding. Patient refusing to be turned at this time, educated patient on importance, patient continue to refuse. Needs addressed throughout shift. Call light in hand, fall precautions in place. Will continue to monitor for changes and safety, and endorse all patient care/needs to oncoming nurse.
[2017-01-13 06:40] LABS: ANION GAP 10 (5-15); CALCIUM 8.7 mg/dL (8.4-11.0); CHLORIDE 98 mmol/L (98-107); CREATININE 5.01 mg/dL (0.55-1.30); GLUCOSE 189 mg/dL (70-99); POTASSIUM 4.2 mmol/L (3.5-5.1); SODIUM SERUM 136 mmol/L (136-145); UREA NITROGEN, BLOOD 51 mg/dL (8-21)
[2017-01-13 06:41] LABS: HEMOGLOBIN 10.5 g/dL (14.0-18.0); LYMPHOCYTES # (AUTO) 1.1 K/uL (1.0-5.5)
[2017-01-13 07:00] LABS: BASOPHILS % (AUTO) 0.1 % (0.0-2.0); HEMATOCRIT 31.2 % (36-54); LYMPHOCYTES % (AUTO) 5.8 % (20.5-51.5); MEAN CORPUSCULAR HEMOGLOBIN 28 pg (27-31); MEAN CORPUSCULAR HGB CONC 34 % (32-36); MEAN CORPUSCULAR VOLUME 82 fL (79.0-98.0); MONOCYTES # (AUTO) 1.7 K/uL (0.0-1.0); MONOCYTES % (AUTO) 8.5 % (1.7-9.3); NEUTROPHILS # (AUTO) 16.8 K/uL (1.8-7.7); NEUTROPHILS % (AUTO) 85.6 % (40.0-70.0); PLATELET COUNT (AUTO) 370 K/uL (130-430); RED BLOOD CELL COUNT(AUTO) 3.82 MIL/uL (4.2-6.2); RED CELL DISTRIBUTION WIDTH 13.4 % (9.0-15.0); WHITE BLOOD COUNT (AUTO) 19.6 K/uL (4.8-10.8)
--- NOTE | 2017-01-13 07:34 | NUR ---
AM ASSESSMENT. PT ALERT, HAND FLAPPING TO HIS SIDE, ASSESSED HIS NEEDS, GETS UPSET, MEDICATED WITH ATIVAN 1 MG IVP FOR ANXIETY, REPOSITIONED IN BED, HAND TOUCHING HIS THIGH, URINAL OFFERED, URINATED ABOUT 100 ML.
[2017-01-13] MEDS: BUDESONIDE 0.5 MG/2 ML AMPUL.NEB INH SCH ×2 (07:37→19:06)
--- NOTE | 2017-01-13 08:37 | NUR ---
DISCHARGE PLANNING DC Planning order for LTAC evaluation and transfer. Faxed DC Planning order to [facility] [phone]. Notified [facility] requested for patient to be evaluated for short term placement. Will follow up. Addendum: 01/13/17 at 1536 by Elma Conner DP Spoke with [facility]ules who stated insurance auth will be needed prior to [facility] evaluation. Dhara made aware of CM note and will also follow up with insurance.
[2017-01-13] MEDS: PREDNISONE 20 MG TABLET PO SCH (09:00)
[2017-01-13] MEDS: SUCRALFATE 1 GM/10 ML UDC NG SCH ×3 (09:00→20:25)
[2017-01-13] MEDS: POLYETHYLENE GLYCOL 3350, 17 GM/ POWD.PACK NG SCH (09:00)
[2017-01-13] MEDS: PANTOPRAZOLE GRANULES PACKET 40 MG NG SCH (09:01)
[2017-01-13] MEDS: CARVEDILOL 25 MG TABLET (COREG) NG SCH ×2 (09:01→20:26)
[2017-01-13] MEDS: DOCUSATE SODIUM 100 MG CAPSULE PO SCH (09:01)
[2017-01-13] MEDS: amLODIPine BESYLATE 10 MG TABLET NG SCH (09:02)
[2017-01-13] MEDS: ENOXAPARIN SODIUM 30 MG/0.3 ML SYRINGE SUBCUT SCH (09:04)
[2017-01-13] MEDS: BALSAM PERU/CASTOR OIL 60 GM OINT...G. TP SCH (09:05)
[2017-01-13] MEDS: hydrALAZINE HCL 25 MG TABLET NG SCH ×4 (11:03→20:28)
--- NOTE | 2017-01-13 11:08 | NUR ---
NGT. PT PULLED OUT HIS NGT JUST WHEN STAFF WAS ABOUT TO ENTER HIS ROOM. CLEANED PT AND REPOSITIONED HIM UPRIGHT.
--- NOTE | 2017-01-13 11:30 | NUR ---
NURSING. PT SEEN SLIGHTLY DROWSY, INSERTED NGT 18 FR SIZE INTO LEFT NARIS, ANOTHER RN HERE TO CONFIRM PLACEMENT OF FEEDING TUBE IN THE STOMACH, G TUBE FEEDING CONTINUES.
--- NOTE | 2017-01-13 12:35 | NUR ---
Discharge Planning contacted [facility] and spoke with Gabrielle requesting auth for LTAC. Gabrielle asked that information supporting need for LTAC be faxed to [facility] FAX [phone]. [phone]. Gabrielle said that case will be reviewed by [facility] and discussed with their medical information specialist. I faxed over patient packet. Addendum: 01/13/17 at 1315 by Antonia Ruth RN Received call back from MADDI Aquino @ [facility]. She had questions regarding need for LTAC. I updated her and told her that updated packet has also been faxed to her. She will call back to let us know if auth has been granted.
--- NOTE | 2017-01-13 16:50 | NUR ---
MEDS. PT HITTING HIS CALL LIGHT MULTIPLE TIMES, EDUCATED PT ON HOW TO USE PUSH BUTTONS FOR TV OR FOR NURSE, PT UNABLE TO FOLLOW INSTRUCTIONS.
--- NOTE | 2017-01-13 17:20 | NUR ---
NURSING. APPROACHED PT AND ASSESSED HIS NEEDS, PT REMAINED QUIET FOR A MINUTE THEN HE STROKE HIS BUTTON. INFORMED PT THAT HELP IS ALWAYS AROUND HIM. NEEDS ATTENDED.
--- NOTE | 2017-01-13 18:36 | NUR ---
WOUND RE-EVALUATION: Patient received in a [place] Bed with an IsoFlex COLTON mattress with low air-loss therapy initiated, awake, alert, oriented, gets agitated easily. Patient is unable to turn independently. Corbin Score is a 16. Intrinsic factors that delay wound healing: COPD, Chronic Respiratory Failure, Diabetes Mellitus Type 2, Peripheral Arterial Disease, Anemia of Chronic Disease. Extrinsic factors that delay wound healing: Decreased mobility. Wound Assessment: 1) Sacral-Coccygeal Area: Pressure Ulcer, present on admission. Wound bed is 40% yellow tissue, 60% pale red tissue. No odor, no drainage. Robert-wound intact. Recommend continue: Cleanse wound with normal saline. Place moisture barrier cream onto robert-wound. Put Venelex onto wound bed. Cover with foam dressing. Perform wound care daily, and as needed for dressing soiling or dislodgement. 2) Right Heel: Pressure Ulcer, present on admission. Wound bed is 100% dull pink tissue. No odor, no drainage. robert-wound intact. Recommend continue: Cleanse wound with normal saline. Place moisture barrier cream onto robert-wound. Put Venelex ointment onto wound bed. Cover with foam dressing. Perform wound care daily, and as needed for dressing soiling or dislodgement. Also recommend continue: Reposition patient side to side only every 2 hours with pillow support, and off-load pressure areas with pillows for pressure re-distribution. Offload, elevate and float bilateral heels with pillows. Perform skin care and monitor skin integrity Q shift. Use moisture barrier cream on buttocks and other moisture susceptible areas QID and as needed for soiling. Maintain patient on low air-loss therapy.
--- NOTE | 2017-01-13 19:30 | NUR ---
INITIAL ASSESSMENT Nurse endorsed pt removed the NG tube.reinserted new one and restart diabetesource @ 45cc/hr. Keep hob >30deg entire time. - Patient laying in bed, awake, alert, X1,nonverbal with trach. No s/s of any acute distress or pain at this time. Breathing even and unlabored on mechanical ventilator, settings SIMV 6, TV 500, PEEP 5, Support pressure 10, FiO2 50%. IV site to left wrist #20, patent after flushed of n/s and no signs of infiltrated noted. Gigi cath noted left chest wall, dressing clean/dry/intact. Wounds noted to left heel and coccyx, dressing clean/dry/intact. Unable to educate patient d/t aloc,no family @ bedside. Call light within reach. Fall precautions in place, bed lowest position, brakes on, side rails up x 3, bed alarm in use, call light in hand. Will continue to monitor for changes and safety.
--- NOTE | 2017-01-13 19:44 | NUR ---
PT REMOVED NG TUBE PAGED AND SPOKE WITH DR BLAS AND NOTIFIED ABOUT PT REMOVING NG TUBE.DR BLAS ORDERED BILAT SOFT WRIST RESTRAINT.
--- NOTE | 2017-01-13 20:00 | NUR ---
RT NOTES REC'D PT ON VENT WITH SETTINGS OF SIMV6/500/+5/PS10/50% VENT AND APNEA ALARMS SET AND FUNCTIONING. TRACH IS MIDLINE AND SECURE. MED NEB TX GIVEN INLINE WITHOUT ADVERSE REACTION NOTED. SXND PRN FOR SCANT TO SMALL AMOUNT OF THICK PALE YELLOW SECRETIONS. EQUAL BILATERAL CHEST RISE PRESENT. BS SCATTERED RONCHI ON BOTH LUNGS. NO RESP DISTRESS NOTED. AMBU BAG IS AT BEDSIDE.
--- NOTE | 2017-01-13 20:00 | NUR ---
REINSERTED NG TUBE REINSERTED NG TUBE TO L NARE.PLACEMENT CONFIRMED BY TWO NURSES.BILAT WRIST RESTRAINT IN PLACE.CONTINUE TO MONITOR FOR CIRCULATION AND S/S OF WRIST INJURY.ALL SAFETY MEASURES IN PLACE.WILL CONT TO MONITOR.
[2017-01-13] MEDS: MONTELUKAST 10 MG TABLET NG SCH (21:34)
--- NOTE | 2017-01-13 22:00 | NUR ---
Spoke to son regarding restraint Spoke to the son regarding pt on restrain d/t pt removing ng tube.Son acknowledge and verbalized understanding for safety. Pt has no s/s of injury to wrist,no c/o pain and good circulation to bilat hands.Call light within reach,will cont to monitor.
--- NOTE | 2017-01-13 23:38 | NUR ---
ELEVATED BP -GAVE APRESOLINE 10MG IVP, BP 170/101,80. NO S/S ANY PAIN,SOB,OR ACUTE DISTRESS NOTED. ALL SAFETY MEASURES IN PLACE. CALL LIGHT W/IN REACH. CONTINUE TO MONITOR PT.
[2017-01-14] VITALS (35 sets, daily range): BP systolic 117–191; BP diastolic 72–108; PULSE 65–94; RESP 18–33; TEMP 97.2–98.8; O2SAT 95–99
--- NOTE | 2017-01-14 | NUR ---
MN ASSESSMENT -Pt is resting,no s/s of acute distress noted. Gave oral care and suctioned pt,clear thin mucus noted. Pt tolerated well of feeding tube. diabetesource @ 45cc/hr. Keep hob >30deg entire time. Breathing even and unlabored on mechanical ventilator, settings SIMV 6, TV 500, PEEP 5, Support pressure 10, FiO2 50%. Call light within reach. Fall precautions in place, bed lowest position, brakes on, side rails up x 3, bed alarm in use, call light in hand. Will continue to monitor for changes and safety. Addendum: 01/14/17 at 0059 by Harris Carney RN ADDITIONAL NOTE- PT STILL ON LÓPEZ SOFT WRIST RESTRAINT IN PLACE,GOOD CIRCULATION NOTED,NO S/S OF INJURY,WILL CONT TO MONITOR.
--- NOTE | 2017-01-14 01:53 | NUR ---
NOTES -Pt is resting,no s/s of acute distress noted. Diabetesource @ 45cc/hr. Keep hob >30deg entire time. -No s/s of pain,sob, or acute distress noted. Pt still on mechanical ventilator, settings SIMV 6, TV 500, PEEP 5, Support pressure 10, FiO2 50%. Call light within reach.Pt still on ja soft wrist restraint . No signs of injury noted. Fall precautions in place, bed lowest position, brakes on, side rails up x 3, bed alarm in use, call light in hand. Will continue to monitor for changes and safety.
[2017-01-14] MEDS: HYDROmorphone 1 MG INJ. 1 MG/ML AMPUL IVP PRN ×3 (02:45→23:57)
--- NOTE | 2017-01-14 02:49 | NUR ---
ADMINISTERED DILAUDID FOR 8/10 GEN PAIN.WILL REASSESS AFTER 1 HOUR.CALL LIGHT WITHIN REACH,WILL CONT TO MONITOR.
--- NOTE | 2017-01-14 03:19 | NUR ---
HCG BATH PERFORMED HCG BATH WITH PT.ORAL CARE WAS ALSO GIVEN.TOLERATED WELL.NO S/S OF PAIN AND NO SOB NOTED.CALL LIGHT WITHIN REACH,WILL CONT TO MONITOR.
[2017-01-14] MEDS: LORazepam 2 MG/ML VIAL IVP PRN ×3 (04:43→16:56)
--- NOTE | 2017-01-14 04:43 | NUR ---
ADMINISTERED ATIVAN D/T AGITATION/RESTLESSNESS IN BED.WILL CONT TO MONITOR.
[2017-01-14] MEDS: cloNIDine HCL 0.2 MG TABLET NG SCH ×3 (05:14→22:17)
[2017-01-14] MEDS: metroNIDAZOLE 500 mg/NS 100 ML IV SCH ×3 (05:15→22:16)
[2017-01-14] MEDS: INSULIN REGULAR, HUMAN 100 UNITS/ML, 10 ML VIAL (novoLIN R) SUBCUT PRN ×4 (05:20→20:29)
--- NOTE | 2017-01-14 06:47 | NUR ---
CLOSING NOTES -Pt is resting. No s/s of any acute distress or pain at this time. Breathing even and unlabored on mechanical ventilator via trachea settings SIMV 6, TV 500, PEEP 5, Support pressure 10, FiO2 50%. IV site to left wrist #20, patent,drsg cdi. Gigi romero noted left chest wall, dressing clean/dry/intact. Roque soft wrist restraint in place. Call light within reach. Fall precautions in place, bed lowest position, brakes on, side rails up x 3, bed alarm in use, call light in hand. All safety measures in place. Will endorse to oncoming nurse to cont care. Addendum: 01/14/17 at 0655 by Harris Carney RN ADDL NOTE:THE PT STILL HAS OGT IN PLACE WITH SAME FEEDING RATE WITH PT TOLERATING THE ENTIRE SHIFT. Addendum: 01/14/17 at 0700 by Harris Carney RN CORRECTION--THE PT STILL HAS NG TUBE OF L NARE IN PLACE WITH SAME FEEDING RATE WITH PT TOLERATING THE ENTIRE SHIFT.
[2017-01-14 06:48] LABS: EOSINOPHILS % (AUTO) 0.1 % (0.0-4.0); HEMATOCRIT 32.7 % (36-54); HEMOGLOBIN 10.7 g/dL (14.0-18.0); LYMPHOCYTES # (AUTO) 0.9 K/uL (1.0-5.5); LYMPHOCYTES % (AUTO) 5.4 % (20.5-51.5); MEAN CORPUSCULAR HEMOGLOBIN 27 pg (27-31); MEAN CORPUSCULAR HGB CONC 33 % (32-36); MEAN CORPUSCULAR VOLUME 84 fL (79.0-98.0); MONOCYTES # (AUTO) 1.2 K/uL (0.0-1.0); MONOCYTES % (AUTO) 7.6 % (1.7-9.3); NEUTROPHILS % (AUTO) 86.9 % (40.0-70.0); PLATELET COUNT (AUTO) 323 K/uL (130-430); RED CELL DISTRIBUTION WIDTH 13.4 % (9.0-15.0); WHITE BLOOD COUNT (AUTO) 16.1 K/uL (4.8-10.8)
[2017-01-14 07:05] LABS: ALANINE AMINOTRANSFERASE 17 U/L (12-78); ALBUMIN 1.8 g/dL (3.4-4.8); ANION GAP 9 (5-15); ASPARTATE AMINOTRANSFERASE 16 U/L (10-37); CALCIUM 8.6 mg/dL (8.4-11.0); CHLORIDE 98 mmol/L (98-107); GLUCOSE 228 mg/dL (70-99); POTASSIUM 4.4 mmol/L (3.5-5.1); SODIUM SERUM 135 mmol/L (136-145); TOTAL BILIRUBIN 0.3 mg/dL (0.0-1.0); TOTAL PROTEIN, SERUM 6.6 g/dL (6.4-8.3); UREA NITROGEN, BLOOD 68 mg/dL (8-21)
--- NOTE | 2017-01-14 07:21 | NUR ---
OPENING NOTE RECEIVED REPORT FROM NIGHT NURSE, PATIENT IS RESTING COMFORTABLY IN BED WITH NO NOTED DISTRESS, DISCOMFORT OR SOB. PATIENT HAS A NG TUBE WITH DIABETASOURCE @45ML AND TOLERATING IT WELL. RT WILL BE CHANGING PATIENT TO CPAP, WILL CONTINUE TO MONITOR PATIENT. PATIENT HAS HD ORDERED FOR TODAY. VITAL SIGNS ARE WITHIN NORMAL RANGE.
[2017-01-14 08:06] LABS: ABG TOTAL HEMOGLOBIN 10.7 G/dL (12.0-18.0); BLOOD GAS BASE EXCESS 3.7 mmol/L (-3.0-3.0); BLOOD GAS COHb% 0.5 % (0.5-1.5); BLOOD GAS HHB 5.5 % (0.0-6.0); BLOOD GAS PH 7.423 (7.350-7.450); BLOOD O2Hb% 93.7 % (94.0-97.0)
[2017-01-14] MEDS: ENOXAPARIN SODIUM 30 MG/0.3 ML SYRINGE SUBCUT SCH (08:41)
[2017-01-14] MEDS: POLYETHYLENE GLYCOL 3350, 17 GM/ POWD.PACK NG SCH (08:41)
[2017-01-14] MEDS: DOCUSATE SODIUM 100 MG CAPSULE PO SCH (08:41)
[2017-01-14] MEDS: PREDNISONE 20 MG TABLET PO SCH (08:41)
[2017-01-14] MEDS: PANTOPRAZOLE GRANULES PACKET 40 MG NG SCH (08:41)
[2017-01-14] MEDS: SUCRALFATE 1 GM/10 ML UDC NG SCH ×3 (08:41→20:19)
[2017-01-14] MEDS: CEFTAZIDIME 1 GM in D5W 50 ML IV SCH (08:41)
[2017-01-14] MEDS: ALBUTEROL SULFATE 0.083% 2.5 MG/3 ML VIAL.NEB INH SCH ×5 (08:43→23:06)
[2017-01-14] MEDS: BUDESONIDE 0.5 MG/2 ML AMPUL.NEB INH SCH ×2 (08:43→19:48)
[2017-01-14] MEDS: IPRATROPIUM BROM 0.5 MG/2.5 ML VIAL.NEB (ATROVENT) INH SCH ×5 (08:44→23:06)
[2017-01-14] MEDS: amLODIPine BESYLATE 10 MG TABLET NG SCH (09:00)
[2017-01-14] MEDS: CARVEDILOL 25 MG TABLET (COREG) NG SCH ×2 (09:00→20:18)
[2017-01-14] MEDS: hydrALAZINE HCL 25 MG TABLET NG SCH ×4 (09:00→20:19)
[2017-01-14] MEDS ORDERED: COMMUNICATION ORDER XX ONE (10:00)
--- NOTE | 2017-01-14 10:00 | NUR ---
NOTE HD NURSE IS HERE TO START DIALYSIS. PATIENT WAS CHANGED TO CPAP AND IS TOLERATING IT WELL. PATIENT HAD URINATED AND WAS CLEANED AND REPOSITIONED. BED IS IN LOWEST POSITION AND WILL CONTINUE TO MONITOR
--- NOTE | 2017-01-14 10:27 | NUR ---
DISCHARGE PLANNING Spoke with Dolly Jules liaison who stated still pending if insurance will auth placement at [facility]. Dhara advised DCP/CM to follow up with [facility]. Called [facility] spoke with Gabrielle at Ext:[phone] who transferred call to Kenia who requested CM to following up with MD on plan of care and return her call on decision from [facility] medical billing instructor decision to auth placement at [facility]. MADDI made aware.
[2017-01-14] MEDS ORDERED: HEPARIN SODIUM, PORCINE 10,000 UNITS/ 10 ML VIAL MC ONE (10:30)
--- NOTE | 2017-01-14 11:37 | NUR ---
BS CHECK PATIENT'S BS WAS CHECKED AND IT WAS 193 AND 2 UNITS OF REGULAR INSULIN WAS GIVEN WITH ANOTHER RN TO WITNESS
--- NOTE | 2017-01-14 14:17 | NUR ---
NOTE DR BLAS WAS AT BEDSIDE AND HE SPOKE WITH CM TO TRY TO GET TRANSFER TO [facility]. NO NEW ORDERS NOTED AT THIS TIME. DR BLAS STATED THAT HE COULD CONTINUE ON RESTRAINTS.
--- NOTE | 2017-01-14 14:34 | NUR ---
SHARATH PLANNING Called Dr Lutz earlier today to clarify some info about pt tx that [facility] wanted in order to try & get auth for LTAC. Per Dr Lutz he was coming in afternoon & will call consults to clarify. Later in afternoon discussed pt tx plan w Dr Lutz in nsg station. Kenia Hoffman wants to know what is being done about Pericardial Effusion shown in CT. Dr Lutz called & discussed w spudder. Pericardial Effusion in [place] was smaller after HD & does not need intervention. Kenia also wanted to know about HD, if acute. Per Dr Lutz it is acute/temporary anticipate being able to wean off in 2-3wks. Called & informed Kenia Hoffman, [phone] Ext:[phone], states she will updated Occupational Psychologist & call us back when gets answer about auth. Addendum: 01/14/17 at 1615 by Ludmila Chun RN Received call from Kenia Hoffman, that Occupational Psychologist did not approve LTAC today, that wants to see how pt does in a few days w Dialysis. States to continue faxing review w cxr's, & to call her Wednesday to f/u if can get auth then. Updated sharath Wills senior program planner.
--- NOTE | 2017-01-14 15:55 | NUR ---
WOUND CARE PATIENT WAS CLEANED AND REPOSITIONED AND TOLERATED WELL, THE WOUND ON THE COCCYX WAS CLEANED WITH NS AND PAT DRY, Z GUARD AND VENELEX WAS APPLIED AND FOAM DRESSING. THE RIGHT HEEL WAS CLEANED WITH NS AND PAT DRIED, Z GUARD AND VENELEX WAS APPLIED AND FOAM DRESSING. PATIENT TOLERATED THIS WELL.
[2017-01-14] MEDS: BALSAM PERU/CASTOR OIL 60 GM OINT...G. TP SCH (16:01)
--- NOTE | 2017-01-14 17:18 | NUR ---
BS CHECK PATIENT'S BS WAS CHECKED AND IT WAS 281 AND 6 UNITS OF REGULAR INSULIN WAS GIVEN WITH ANOTHER RN TO WITNESS. BP MEDICATION WAS GIVEN WELL, PATIENT'S BP WAS 196/102
--- NOTE | 2017-01-14 18:18 | NUR ---
CLOSING NOTE PATIENT IS RESTING COMFORTABLY IN BED WITH NO NOTED DISTRESS, DISCOMFORT OR SOB. PATIENT IS TOLERATING THE CPAP AT FIO2@50%. PATIENT WAS REPOSITIONED AND TOLERATED WELL. WILL GIVE REPORT TO NIGHT NURSE.
--- NOTE | 2017-01-14 19:45 | NUR ---
Beginning of shift assessment Pt lying in bed awake, able to make simple needs known, able to follow commands. Trach to vent, tolerating current settings well as evidenced by respirations even and unlabored. NG tube noted to L nares, verified correct placement via auscultation. Pt tolerating tube feeding well, no residual noted. Gigi Catheter noted to L chest, dressing clean/dry/intact. 20g L FA, HL. No s/s of infection or infiltration. Call light within reach, bed in low position, will continue to monitor.
[2017-01-14] MEDS: MONTELUKAST 10 MG TABLET NG SCH (20:19)
[2017-01-15] VITALS (36 sets, daily range): BP systolic 125–188; BP diastolic 64–101; PULSE 63–97; RESP 14–40; TEMP 96.8–98.4; O2SAT 93–100
--- NOTE | 2017-01-15 | NUR ---
Pain Pt c/o 05/31 pain, requesting pain medication. Will medicate w Dilaudid per MD order and continue to monitor
[2017-01-15] MEDS: ALBUTEROL SULFATE 0.083% 2.5 MG/3 ML VIAL.NEB INH SCH ×6 (03:30→23:13)
[2017-01-15] MEDS: IPRATROPIUM BROM 0.5 MG/2.5 ML VIAL.NEB (ATROVENT) INH SCH ×6 (03:31→23:13)
[2017-01-15] MEDS: LORazepam 2 MG/ML VIAL IVP PRN ×2 (03:34→11:16)
--- NOTE | 2017-01-15 03:46 | NUR ---
Anxiety Pt anxious as evidenced by restlessness, asked pt if he wanted Ativan, pt nods yes. Ativan administered per MD order, will continue to monitor.
[2017-01-15] MEDS: metroNIDAZOLE 500 mg/NS 100 ML IV SCH ×3 (05:48→21:03)
[2017-01-15] MEDS: cloNIDine HCL 0.2 MG TABLET NG SCH ×3 (05:48→22:21)
[2017-01-15] MEDS: HYDROmorphone 1 MG INJ. 1 MG/ML AMPUL IVP PRN ×2 (05:48→12:40)
--- NOTE | 2017-01-15 06:05 | NUR ---
Perineal care Pt voided to urinal and some leaking occurred. Linen change and perineal care provided. Pt reports he does not want to lay on his side and is comfortable the way he is (supine). Educated pt re prevention of further skin breakdown, however pt continues to want to stay supine. Heels elevated on pillow, will continue to monitor.
[2017-01-15] MEDS: INSULIN REGULAR, HUMAN 100 UNITS/ML, 10 ML VIAL (novoLIN R) SUBCUT PRN ×4 (06:39→20:57)
--- NOTE | 2017-01-15 07:25 | NUR ---
End of shift report Endorsed pt care and SBAR to ASMITA Zelaya.
--- NOTE | 2017-01-15 07:35 | NUR ---
AM Rounds: Received pt sitting semi-fowlers in bed. No acute signs of distress noted. IV intact to RUE and Gigi cath intact to left chest, dressing CDI. Pt is alert and able to make needs known. Pt is able to mouth words, move hands, and nod to indicate understanding. NGT intact to Left nares. Auscultated and aspiration of gastric contents for placement check noted. Vent settings checked at bedside: CPAP 5, Pressure support 10, and FiO2 50%. Voids well via urinal. Feet elevated on pillow. Dressing to sacrum CDI. Call light in reach. HOB at 30 degrees. Aspiration, fall, and pressure ulcer precautions in place. Pt is able to make needs known. No other needs noted at this time. Continue to monitor pt closely.
[2017-01-15] MEDS: PANTOPRAZOLE GRANULES PACKET 40 MG NG SCH (08:35)
[2017-01-15] MEDS: CEFTAZIDIME 1 GM in D5W 50 ML IV SCH (08:35)
[2017-01-15] MEDS: SUCRALFATE 1 GM/10 ML UDC NG SCH ×3 (08:35→20:48)
[2017-01-15] MEDS: POLYETHYLENE GLYCOL 3350, 17 GM/ POWD.PACK NG SCH (08:35)
[2017-01-15] MEDS: ENOXAPARIN SODIUM 30 MG/0.3 ML SYRINGE SUBCUT SCH (08:35)
[2017-01-15] MEDS: PREDNISONE 20 MG TABLET PO SCH (08:37)
[2017-01-15] MEDS: CARVEDILOL 25 MG TABLET (COREG) NG SCH ×2 (08:37→20:51)
[2017-01-15] MEDS: hydrALAZINE HCL 25 MG TABLET NG SCH ×4 (08:37→20:50)
[2017-01-15] MEDS: amLODIPine BESYLATE 10 MG TABLET NG SCH (08:38)
[2017-01-15] MEDS: DOCUSATE SODIUM 100 MG CAPSULE PO SCH (08:38)
[2017-01-15] MEDS: BALSAM PERU/CASTOR OIL 60 GM OINT...G. TP SCH (08:39)
--- NOTE | 2017-01-15 09:24 | NUR ---
RN Rounds/Dr. Butterfield Here: AM meds given per Md order. Pt tolerates well via NGT. Pt denies pain at this time. No acute signs of distress noted. Dr. Butterfield here to see patient. Aware that pt had dialysis yesterday. No other needs noted. Pt refuses oral care at this time. Educated on benefits of oral care, pt continues to refuse
[2017-01-15] MEDS: hydrALAZINE HCL 20 MG/ML VIAL IVP PRN (10:21)
[2017-01-15 10:57] LABS: ANION GAP 5 (5-15); CALCIUM 8.4 mg/dL (8.4-11.0); CHLORIDE 101 mmol/L (98-107); CREATININE 4.58 mg/dL (0.55-1.30); GLUCOSE 205 mg/dL (70-99); POTASSIUM 4.6 mmol/L (3.5-5.1); SODIUM SERUM 136 mmol/L (136-145); UREA NITROGEN, BLOOD 59 mg/dL (8-21)
[2017-01-15] MEDS: BUDESONIDE 0.5 MG/2 ML AMPUL.NEB INH SCH ×2 (11:14→20:03)
--- NOTE | 2017-01-15 11:40 | NUR ---
Rounds: Blood sugar checked and coverage given. Pt tolerates well. Pt voids via urinal, cleaned, and repositioned. Call light in reach. Oral care provided. No acute signs of distress noted. Continue to monitor.
--- NOTE | 2017-01-15 13:50 | NUR ---
WOUND RE-EVALUATION: Late note for 1350 secondary to patient care. Patient received in a [place] Bed with an IsoFlex COLTON mattress with low air-loss therapy initiated, awake, alert, oriented, gets agitated easily. Patient is unable to turn independently. Corbin Score is a 16. Intrinsic factors that delay wound healing: COPD, Chronic Respiratory Failure, Diabetes Mellitus Type 2, Peripheral Arterial Disease, Anemia of Chronic Disease. Extrinsic factors that delay wound healing: Decreased mobility. Wound Assessment: 1) Sacral-Coccygeal Area: Pressure Ulcer, present on admission. Wound bed is 10% yellow tissue, 90% pale red tissue. No odor, no drainage. Vale-wound intact. Measures 1.5 cm x 1.0 cm x 0.2 cm. Recommend: Cleanse wound with normal saline. Place moisture barrier cream onto vale-wound. Put Venelex onto wound bed. PAck wound with 1/4 inch Iodoform. Cover with foam dressing. Perform wound care daily, and as needed for dressing soiling or dislodgement. 2) Right Heel: Pressure Ulcer, present on admission. Wound bed is 100% dull pink tissue. No odor, no drainage. vale-wound intact. Measures 1.0 cm x 0.2 cm x 0.1 cm. Recommend continue: Cleanse wound with normal saline. Place moisture barrier cream onto vale-wound. Put Venelex ointment onto wound bed. Cover with foam dressing. Perform wound care daily, and as needed for dressing soiling or dislodgement. Also recommend continue: Reposition patient side to side only every 2 hours with pillow support, and off-load pressure areas with pillows for pressure re-distribution. Offload, elevate and float bilateral heels with pillows. Perform skin care and monitor skin integrity Q shift. Use moisture barrier cream on buttocks and other moisture susceptible areas QID and as needed for soiling. Maintain patient on low air-loss therapy.
--- NOTE | 2017-01-15 13:50 | NUR ---
Wound Care and Assessment: 1) Sacral-Coccygeal Area: Pressure Ulcer, Wound bed is 10% yellow tissue, 90% pale red tissue. No odor, no drainage. Robert-wound white. Cleansed wound with normal saline. Placed moisture barrier cream onto robert-wound. Put Venelex onto wound bed. Covered with foam dressing. 2) Right Heel: Pressure Ulcer, present on admission. Wound bed is 100% dull pink tissue. No odor, no drainage. robert-wound intact. Cleansed wound with normal saline. Placed moisture barrier cream onto robert-wound. Put Venelex ointment onto wound bed. Covered with foam dressing. Offloaded, elevate and float bilateral heels with pillows. Performed skin care and monitor skin integrity Q shift. Use moisture barrier cream on buttocks and other moisture susceptible areas QID and as needed for soiling. Maintain patient on low air-loss therapy.
--- NOTE | 2017-01-15 15:52 | NUR ---
Rounds: Pt sitting semi-fowlers in bed. Refusing repositioning at this time. Oral care provided and patient suctioned as needed. Vale-care provided for void. Call light in reach. Continue to monitor.
--- NOTE | 2017-01-15 17:45 | NUR ---
Rounds: Blood sugar checked and coverage given. No acute signs of distress noted at this time. Call light in reach. Continue to monitor.
--- NOTE | 2017-01-15 17:50 | NUR ---
Rounds: Blood sugar checked and coverage given. No acute signs of distress noted at this time. IV intact to RUE PICC with no redness or swelling noted to site. Call light in reach. Continue to monitor. Addendum: 01/15/17 at 1849 by Nathalie Yañez RN Wrong Patient--please disregard this note.
--- NOTE | 2017-01-15 18:50 | NUR ---
Closing Note: Pt sitting semi-fowlers in bed. No acute signs of distress noted. Left chest Gigi cath in place and flushing well. Pt denies pain at this time. Call light in reach. Pt refuses to be changed at this time. Vent settings checked at bedside, pt tolerates well. No other needs noted at this time. All needs met throughout shift. Endorse plan of care to STACI RN.
--- NOTE | 2017-01-15 19:10 | NUR ---
ATTEMPTED OFF VENT RT SHERLY ATTEMPTED TO PUT PT OFF VENT FOR 15 MINS BUT PT CANT TOLERATE . RT SAID TO TRY AGAIN MARV[facility].PT WAS AGREEABLE WITH THE PLAN.
--- NOTE | 2017-01-15 19:30 | NUR ---
INITIAL NOTES Patient laying in bed, awake, alert, X4,nonverbal with trach. No s/s of any acute distress or pain at this time. Breathing even and unlabored on mechanical ventilator. Gigi romero noted left chest wall, dressing clean/dry/intact. Wounds noted to left heel and coccyx, dressing clean/dry/intact. Call light within reach. Fall precautions in place, bed lowest position, brakes on, side rails up x 3, bed alarm in use, call light in hand. Will continue to monitor for changes and safety. Addendum: 01/15/17 at 2306 by Harris Carney RN PT ON C PAP, SETTING: PRESSURE SUPPORT 10, FI02 50%,PEEP 5.
[2017-01-15] MEDS: MONTELUKAST 10 MG TABLET NG SCH (20:48)
--- NOTE | 2017-01-15 23:01 | NUR ---
PT REFUSED REPOSITIONING ATTEMPTED TO TURN PT BUT PT REFUSED. EXPLAINED RISK AND BENEFITS BUT STILL NOT COMPLIANT. CALL LIGHT WITHIN REACH, WILL CONT TO MONITOR.
[2017-01-16] VITALS (36 sets, daily range): BP systolic 110–169; BP diastolic 54–127; PULSE 62–87; RESP 11–20; TEMP 97.4–99.9; O2SAT 96–100
--- NOTE | 2017-01-16 00:45 | NUR ---
RESUMED CARE RESUMED CARE FROM NURSE MANUEL RN. NO S/S OF SOB OR DISTRESS. WILL CONTINUE TO MONITOR.
--- NOTE | 2017-01-16 01:20 | NUR ---
FIO2 DECREASED RT SHERLY DECREASED FIO2 TO 40%, PT TOLERATING WELL. WILL CONTINUE TO MONITOR.
[2017-01-16] MEDS: ALBUTEROL SULFATE 0.083% 2.5 MG/3 ML VIAL.NEB INH SCH ×6 (02:40→23:26)
[2017-01-16] MEDS: IPRATROPIUM BROM 0.5 MG/2.5 ML VIAL.NEB (ATROVENT) INH SCH ×6 (02:41→23:26)
--- NOTE | 2017-01-16 04:00 | NUR ---
REFUSED ORAL CARE PT REFUSED ORAL CARE, PT EDUCATED, HOWEVER STILL REFUSES.
[2017-01-16] MEDS: HYDROmorphone 1 MG INJ. 1 MG/ML AMPUL IVP PRN ×3 (04:28→21:18)
[2017-01-16] MEDS: cloNIDine HCL 0.2 MG TABLET NG SCH ×3 (06:18→21:19)
[2017-01-16] MEDS: INSULIN REGULAR, HUMAN 100 UNITS/ML, 10 ML VIAL (novoLIN R) SUBCUT PRN ×4 (06:18→21:24)
[2017-01-16] MEDS: metroNIDAZOLE 500 mg/NS 100 ML IV SCH (06:19)
--- NOTE | 2017-01-16 06:28 | NUR ---
BS/ MED/ ABX BS 201, 4 UNITS INSULIN REGULAR PER SLIDING SCALE, NO HYPO/HYPERGLYCEMIA. DUE MED AND ABX GIVEN, PT TOLERATING WELL. CALL LIGHT W/IN REACH, SAFETY PRECAUTIONS IN PLACE, WILL CONTINUE TO MONITOR.
[2017-01-16 06:45] LABS: EOSINOPHILS # (AUTO) 0.1 K/uL (0.0-0.4); EOSINOPHILS % (AUTO) 0.3 % (0.0-4.0); HEMATOCRIT 32.9 % (36-54); HEMOGLOBIN 10.5 g/dL (14.0-18.0); LYMPHOCYTES # (AUTO) 1.4 K/uL (1.0-5.5); LYMPHOCYTES % (AUTO) 7.6 % (20.5-51.5); MEAN CORPUSCULAR HEMOGLOBIN 27 pg (27-31); MEAN CORPUSCULAR HGB CONC 32 % (32-36); MEAN CORPUSCULAR VOLUME 84 fL (79.0-98.0); MONOCYTES # (AUTO) 1.9 K/uL (0.0-1.0); MONOCYTES % (AUTO) 10.3 % (1.7-9.3); NEUTROPHILS # (AUTO) 15.1 K/uL (1.8-7.7); NEUTROPHILS % (AUTO) 81.8 % (40.0-70.0); PLATELET COUNT (AUTO) 292 K/uL (130-430); RED BLOOD CELL COUNT(AUTO) 3.92 MIL/uL (4.2-6.2); RED CELL DISTRIBUTION WIDTH 13.6 % (9.0-15.0); WHITE BLOOD COUNT (AUTO) 18.5 K/uL (4.8-10.8)
[2017-01-16 07:00] LABS: ANION GAP 4 (5-15); CALCIUM 8.5 mg/dL (8.4-11.0); CHLORIDE 101 mmol/L (98-107); GLUCOSE 188 mg/dL (70-99); POTASSIUM 4.9 mmol/L (3.5-5.1); SODIUM SERUM 137 mmol/L (136-145); UREA NITROGEN, BLOOD 74 mg/dL (8-21)
--- NOTE | 2017-01-16 07:17 | NUR ---
CLOSING ALL NEEDS MET. ENDORSED CARE TO FILEMON TIAN.
--- NOTE | 2017-01-16 07:55 | NUR ---
AM ASSESSMENT. PT SEEN AWAKE, TEMP IN NORMAL RANGE, HIS HAND POINTING DOWNWARDS, NEEDS ASSESSED, ASKING FOR A URINAL, ASSISTANCE PROVIDED, PT VOIDED ABOUT 150 ML, SKIN CARE RENDERED, ENCOURAGED PT TO TURN TO HIS SIDE, PT NOT WILLING, EDUCATED ON RISK OF DEVELOPING BEDSORES, REPOSITIONED TO ONE SIDE, PT MOUTHED "MEDICINE", PT NEEDED SOMETHING TO HELP HIM GET A LITTLE SLEEP.
[2017-01-16] MEDS: LORazepam 2 MG/ML VIAL IVP PRN ×2 (08:03→12:00)
--- NOTE | 2017-01-16 08:03 | NUR ---
MEDS. ATIVAN 1 MG IVP FOR ANXIETY GIVEN, CALL LIGHT BY HIS HAND, WILL CONTINUE TO MONITOR.
[2017-01-16] MEDS: BUDESONIDE 0.5 MG/2 ML AMPUL.NEB INH SCH ×2 (08:14→20:01)
[2017-01-16] MEDS: amLODIPine BESYLATE 10 MG TABLET NG SCH ×2 (09:00→09:25)
[2017-01-16] MEDS: hydrALAZINE HCL 25 MG TABLET NG SCH ×5 (09:00→21:20)
[2017-01-16] MEDS: CARVEDILOL 25 MG TABLET (COREG) NG SCH ×3 (09:00→21:21)
[2017-01-16] MEDS: PREDNISONE 20 MG TABLET PO SCH (09:03)
[2017-01-16] MEDS: POLYETHYLENE GLYCOL 3350, 17 GM/ POWD.PACK NG SCH (09:03)
[2017-01-16] MEDS: SUCRALFATE 1 GM/10 ML UDC NG SCH ×3 (09:03→21:21)
[2017-01-16] MEDS: PANTOPRAZOLE GRANULES PACKET 40 MG NG SCH (09:03)
[2017-01-16] MEDS: DOCUSATE SODIUM 100 MG CAPSULE PO SCH (09:03)
[2017-01-16] MEDS: CEFTAZIDIME 1 GM in D5W 50 ML IV SCH (09:03)
[2017-01-16] MEDS: ENOXAPARIN SODIUM 30 MG/0.3 ML SYRINGE SUBCUT SCH (09:03)
[2017-01-16] MEDS: BALSAM PERU/CASTOR OIL 60 GM OINT...G. TP SCH (09:05)
--- NOTE | 2017-01-16 10:00 | NUR ---
HYGIENE. PT ASKED FOR A URINAL, VOIDED ADEQUATE AMOUNT, SOME LEAKING AROUND SCROTAL AREA, TURNED AND REPOSITIONED TO HIS SIDE, INCONTINENT OF BOWEL, BED BATH WITH GOOD PERINEAL CARE DONE, WOUNDS TO SACRUM AND RIGHT HEEL WASHED WITH SALINE, FOLLOWED SKIN TREATMENT ORDERS.
--- NOTE | 2017-01-16 12:00 | NUR ---
ANXIETY. PT CALLING BY PRESSING HIS CALL LIGHT, MEDICATED WITH ATIVAN 1 MG IVP REQUESTED.
--- NOTE | 2017-01-16 12:56 | NUR ---
Nutrition F/U Admitting Diagnosis Pneumonia, atypical chest pain, severe protein and caloric malnutrition Past Medical History COPD w/chronic respiratory failure on T-bar, T2DM, peripheral artery disease, essential HTN, CKD, anemia, GERD, chronic constipation per MD notes Pertinent Medications prednisone, miralax, protonix, norco, ativan, dulcolax suppository, SSI, colace, zofran, ceftazidem/dextrose IVF, singulair, lovenox, vasotec, norepinephrine/NaCl, dilaudid, metronidazol Current Diet Order/Nutrition Support Diabetisource AC at 45 ml/hr via NGT x 5 days Height (Feet) 5 feet Height (Inches) 9.00 inches Weight (Pounds) 270 pounds (admission); bed scale (01/16/17): 270 lbs/123 kg, no change since admission; noted per EMR, pt has 2+ pitting edema to bilateral lower extremities and 1+ pitting edema to bilateral upper extremities (interpret wt w/ caution, likely inflated d/t fluids) Weight (Calculated Kilograms) 122.487632 kilograms Patient Weight 122.47 kg Body Mass Index 39.87 kg/m2 (obesity class II) [place]/Adjusted Body Weight IBW 160 lb (73 kg); 169% of IBW; Adjusted IBW: 188 lb (85 kg) Estimated Needs (modified) 8513-7473 kcal/day (22-25 kcal/kg IBW for vent support) Grams of Protein per Day (modified) 146-183 gm/day (2-2.5 gm/kg IBW for COPD, CKD on HD, wound healing, vent support) Fluid Intake Goal Per MD for CKD Pertinent Labs WBC 18.5 H, H/H (10.5 L/32.9 L, BUN 74 H, CRE 4.90 H, BG 188 H 01/14/17: ALB 1.8 L Other Subjective Data Patient seen awake, trach to vent, NGT to L nare w/ TFs infusing per MD order. Per RN, pt has been tolerating TFs with 0 residuals so far today. RN stated that FWF is only being given with medications, per MD. Reported dialysis planned today; no BMs so far today. RN reported recent attempts to wean pt off of ventilator was unsuccessful. Per EMR, TF intakes (01/16/17): 270 ml, residuals: 10 ml total today; abdomen is soft/distended w/ active bowel sounds. I/Os (01/16/17): 650/300 (+351 ml); 1 BM 01/15. Corbin scale: 14. Per wound re-eval note 01/15/17: 1) Sacral-Coccygeal Area: Pressure Ulcer, present on admission. 2) Right Heel: Pressure Ulcer, present on admission. Current TF regimen is providin kcal/day, 65 gm protein/day, and 883 ml free water/day. This meets: 81% of low end of estimated caloric needs and 45% of low end of estimated protein needs. Recommend new TF regimen: Nutren Pulmonary at 45 ml/hr, Prosource TID via NGT. This would provide 1800 kcal/day, 118 gm protein/day, 845 ml free water/day. This would meet 99-112% of estimated energy needs and 64-81% of estimated protein needs per day. RD awaiting call back from MD; RD left note for MD to sign. Pt is not appropriate for nutrition education. Problem, Etiology, Signs/Symptoms (modified) Obesity related to self-monitoring deficit as evidenced by BMI 39.9 and 169% of IBW. *ongoing Increased nutrient needs related to metabolic demands as evidenced by elevated WBC lab values and estimated nutritional needs. *ongoing Expected Outcomes or Goals 1. Monitor tolerance to EN and PO intakes with goal of meeting at least 50-60% of estimated needs with acceptable tolerance 2. Labs trending within normal limits 3. Weight loss, weight maintenance 4. Improved skin integrity, wound healing 5. Normal GI function Dietitian Recommendations * Recommend new TF regimen: Nutren Pulmonary at 45 ml/hr, Prosource TID via NGT * Consider nephrovite and VIT C for wound healing Follow Up High Risk: F/U in 2-3 days
--- NOTE | 2017-01-16 14:00 | NUR ---
REST. PT SEEN COMFORTABLE AT THIS HOUR, ASSESSED FOR HIS NEEDS, PT KEPT LISTENING TO THE SOUND OF TELEVISION SHOW.
--- NOTE | 2017-01-16 16:00 | NUR ---
PAIN. PT COMPLAINED OF PAIN TO RIGHT SIDE OF HIS SHOULDER, LEFT HAND RUBBING HIS SHOULDER/NECK PART, MEDICATED WITH DILAUDID 0.5 MG IVP.
--- NOTE | 2017-01-16 16:10 | NUR ---
TRACH. R.T. ON DUTY CAME IN. CHANGED TRACH DRESSING, SKIN CARE DONE, NO REDNESS TO SURROUNDING EDGES.
--- NOTE | 2017-01-16 18:38 | NUR ---
NURSING. PT'S EYES CLOSED, COMFORTABLE, FEEDING REMAINS VIA NGT, HEAD OF BED AT 35 DEGREE ANGLE.
--- NOTE | 2017-01-16 19:30 | NUR ---
PM ASSESS PT A/OX4, AFEBRILE. AUSCULTATED CRACKLES BILAT, TRACH ON CPAP FIO2 40% PEEP5 PS10. SR ON THE MONITOR. BELKYS W/ PIGTAIL ON LT CHEST. NGT PLACEMENT CHECKED, DIABETISOURCE@45ML/HR. HEEL WOUND COVERED W/ DRESSING, WOUND ON COCCYX W/ ZGUARD APPLIED. POC DISCUSSED, PT SHOOK HEAD YES UNDERSTANDING.
[2017-01-16] MEDS: MONTELUKAST 10 MG TABLET NG SCH (21:21)
--- NOTE | 2017-01-16 21:28 | NUR ---
BS/ MED/ ABX BS 220, 4 UNITS INSULIN REGULAR PER SLIDING SCALE, NO HYPO/HYPERGLYCEMIA. DUE MED GIVEN, PT TOLERATING WELL. CALL LIGHT W/IN REACH, SAFETY PRECAUTIONS IN PLACE, WILL CONTINUE TO MONITOR.
[2017-01-17] VITALS (30 sets, daily range): BP systolic 138–190; BP diastolic 56–96; PULSE 60–93; RESP 11–35; TEMP 97–99.2; O2SAT 93–100
--- NOTE | 2017-01-17 01:00 | NUR ---
HYGIENE PERICARE AND ORAL CARE GIVEN, PT TOLERATING WELL. PT REFUSED TO BE TURNED. PT EDUCATED WILL ATTEMPT AGAIN IN THE FOLLOWING HOUR.
[2017-01-17] MEDS: HYDROmorphone 1 MG INJ. 1 MG/ML AMPUL IVP PRN ×4 (02:42→19:36)
[2017-01-17] MEDS: IPRATROPIUM BROM 0.5 MG/2.5 ML VIAL.NEB (ATROVENT) INH SCH ×6 (03:23→23:25)
[2017-01-17] MEDS: ALBUTEROL SULFATE 0.083% 2.5 MG/3 ML VIAL.NEB INH SCH ×6 (03:23→23:25)
[2017-01-17] MEDS: ALBUTEROL SULFATE 0.083% 2.5 MG/3 ML VIAL.NEB INH PRN (04:53)
[2017-01-17] MEDS: IPRATROPIUM BROM 0.5 MG/2.5 ML VIAL.NEB (ATROVENT) INH PRN (04:53)
[2017-01-17] MEDS: cloNIDine HCL 0.2 MG TABLET NG SCH ×3 (06:08→21:20)
[2017-01-17] MEDS: INSULIN REGULAR, HUMAN 100 UNITS/ML, 10 ML VIAL (novoLIN R) SUBCUT PRN ×3 (06:11→20:26)
--- NOTE | 2017-01-17 06:30 | NUR ---
BS/ MED BS 170, 2 UNITS INSULIN REGULAR PER SLIDING SCALE, NO HYPO/HYPERGLYCEMIA. DUE MED GIVEN, PT TOLERATING WELL. CALL LIGHT W/IN REACH, SAFETY PRECAUTIONS IN PLACE, WILL CONTINUE TO MONITOR.
[2017-01-17 06:35] LABS: BASOPHILS % (AUTO) 0.1 % (0.0-2.0); EOSINOPHILS # (AUTO) 0.1 K/uL (0.0-0.4); EOSINOPHILS % (AUTO) 0.4 % (0.0-4.0); HEMATOCRIT 33.1 % (36-54); HEMOGLOBIN 10.6 g/dL (14.0-18.0); LYMPHOCYTES # (AUTO) 1.6 K/uL (1.0-5.5); LYMPHOCYTES % (AUTO) 8.2 % (20.5-51.5); MEAN CORPUSCULAR HEMOGLOBIN 27 pg (27-31); MEAN CORPUSCULAR HGB CONC 32 % (32-36); MEAN CORPUSCULAR VOLUME 84 fL (79.0-98.0); MONOCYTES # (AUTO) 1.7 K/uL (0.0-1.0); MONOCYTES % (AUTO) 8.9 % (1.7-9.3); NEUTROPHILS # (AUTO) 15.9 K/uL (1.8-7.7); PLATELET COUNT (AUTO) 278 K/uL (130-430); RED BLOOD CELL COUNT(AUTO) 3.93 MIL/uL (4.2-6.2); RED CELL DISTRIBUTION WIDTH 13.5 % (9.0-15.0); WHITE BLOOD COUNT (AUTO) 19.3 K/uL (4.8-10.8)
[2017-01-17 07:10] LABS: ALANINE AMINOTRANSFERASE 24 U/L (12-78); ALBUMIN 1.9 g/dL (3.4-4.8); ANION GAP 2 (5-15); ASPARTATE AMINOTRANSFERASE 18 U/L (10-37); CALCIUM 8.5 mg/dL (8.4-11.0); CHLORIDE 101 mmol/L (98-107); CREATININE 5.33 mg/dL (0.55-1.30); GLUCOSE 173 mg/dL (70-99); POTASSIUM 5.1 mmol/L (3.5-5.1); SODIUM SERUM 137 mmol/L (136-145); TOTAL BILIRUBIN 0.3 mg/dL (0.0-1.0); TOTAL PROTEIN, SERUM 6.2 g/dL (6.4-8.3); UREA NITROGEN, BLOOD 86 mg/dL (8-21)
--- NOTE | 2017-01-17 07:20 | NUR ---
CLOSING ALL NEEDS MET. ENDORSED CARE TO BERTA TIAN.
--- NOTE | 2017-01-17 07:30 | NUR ---
AM ROUNDS: No s/s of distress noted. Will continue to monitor.
[2017-01-17] MEDS: BUDESONIDE 0.5 MG/2 ML AMPUL.NEB INH SCH ×2 (07:33→20:15)
[2017-01-17 08:06] LABS: NEUTROPHILS % (AUTO) 82.4 % (40.0-70.0)
[2017-01-17] MEDS: ENOXAPARIN SODIUM 30 MG/0.3 ML SYRINGE SUBCUT SCH (09:23)
[2017-01-17] MEDS: POLYETHYLENE GLYCOL 3350, 17 GM/ POWD.PACK NG SCH (09:23)
[2017-01-17] MEDS: SUCRALFATE 1 GM/10 ML UDC NG SCH ×3 (09:23→21:18)
[2017-01-17] MEDS: CEFTAZIDIME 1 GM in D5W 50 ML IV SCH (09:23)
[2017-01-17] MEDS: PANTOPRAZOLE GRANULES PACKET 40 MG NG SCH (09:24)
[2017-01-17] MEDS: hydrALAZINE HCL 25 MG TABLET NG SCH ×4 (09:24→21:21)
[2017-01-17] MEDS: DOCUSATE SODIUM 100 MG CAPSULE PO SCH (09:25)
[2017-01-17] MEDS: amLODIPine BESYLATE 10 MG TABLET NG SCH (09:25)
[2017-01-17] MEDS: PREDNISONE 20 MG TABLET PO SCH (09:25)
[2017-01-17] MEDS: BALSAM PERU/CASTOR OIL 60 GM OINT...G. TP SCH (09:26)
[2017-01-17] MEDS: CARVEDILOL 25 MG TABLET (COREG) NG SCH ×2 (09:26→21:20)
--- NOTE | 2017-01-17 09:45 | NUR ---
MD ROUNDS: Dr. Scott in to see patient.
--- NOTE | 2017-01-17 10:00 | NUR ---
PATIENT RESTING: Patient resting quietly. No acute distress noted. Vital signs within normal range.
--- NOTE | 2017-01-17 10:10 | NUR ---
RT NOTES Per Dr Scott's order, took pt. off the vent and placed on 40% cool aerosol t-piece. Pt. is alert and was educated on t-piece, which pt. appears to understand. Attempted to do oral sxn, before cuff deflation but pt. refused by mouthing "no" and shaking head. Sxn moderate amount of thin/thick yellow secretions via T.T. No immediate adverse reactions/no respiratory distress noted. Vital post t-piece: H.R 81 R.R 14 @1015, no respiratory distress noted. H.R. 80 R.R 19. Vent remains at bedside for PRN for distress and for pt. to go back on AC 10 at night 10PM to 6AM per Dr Scott's order. T.T remains secure/patent.
[2017-01-17] MEDS ORDERED: LACTOBACILLUS RHAMNOSUS GG 1 CAP CAPSULE NG ONE (10:30)
--- NOTE | 2017-01-17 10:41 | NUR ---
consult for dr. mills (dr. kitchen station operator) called spoke to aarti dialed [phone]
--- NOTE | 2017-01-17 10:45 | NUR ---
MD ROUNDS: Dr. Yeboah to see patient.
--- NOTE | 2017-01-17 11:08 | NUR ---
MD ROUNDS: Dr. Butterfield in to see patient.
[2017-01-17] MEDS: hydrALAZINE HCL 20 MG/ML VIAL IVP PRN (13:09)
--- NOTE | 2017-01-17 14:45 | NUR ---
HEMODIALYSIS: Patient started hemodialysis. HD Nurse at bedside.
[2017-01-17] MEDS ORDERED: HEPARIN SODIUM,PORCINE 5000 UNITS/ML VIAL ONE (15:47)
--- NOTE | 2017-01-17 16:51 | NUR ---
INSULIN: Held due to logistics team lead request.
--- NOTE | 2017-01-17 18:59 | NUR ---
CLOSING NOTE: All needs met. Patient had hemodialysis today with 2800cc being removed. Patient now on t-bar at fio2 40%. Report given to ASMITA Carty.
--- NOTE | 2017-01-17 19:30 | NUR ---
Initial Notes Received patient with ASMITA Carty. Patient resting in bed, awake, alert, oriented, status post hemodialysis. Patient denies any acute distress at this time. Breathing even and unlabored on T-bag, FiO2 40%. Gigi cath with pigtail noted left chest, dressing clean/dry/intact. NG-tube noted to left nares, patient tolerating Diabetisource tube feeding, 0ml residual noted. Healing wounds noted to right heel and coccyx. Educated patient on use of call light for assistance and fall precautions, patient verbalized understanding. Patient noted pain to abdomen, medicated patient for pain per MD order. Will continue to monitor.
[2017-01-17] MEDS: PIPERACILLIN/TAZO 2.25G/DEX-IS 50 ML IV SCH (20:17)
[2017-01-17] MEDS: MONTELUKAST 10 MG TABLET NG SCH (21:18)
[2017-01-17] MEDS: LACTOBACILLUS RHAMNOSUS GG 1 CAP CAPSULE NG SCH (21:19)
--- NOTE | 2017-01-17 22:00 | NUR ---
PLACED ON VENT RT HERE TO PUT PT ON VENT PER DR. MULLINS, SETTINGS AC10/TV500/FIO2 40%/PEEP5. PT TOLERATING WELL. WILL CONTINUE TO MONITOR. CALL LIGHT W/IN REACH, SAFETY PRECAUTIONS IN PLACE, WILL CONTINUE TO MONITOR.
--- NOTE | 2017-01-17 22:18 | NUR ---
RT Note: 2218 Pt placed on the vent on AC 10, 500, 40% at this time as per report and order by (AC 10 10p-6a). RN made aware. Pt appears to be irritated at the moment. No resp distress noted. Trach is patent and secure. Will continue to monitor pt. Addendum: 01/17/17 at 2228 by Minal Guerin RT Amended: Links added.
[2017-01-18] VITALS (29 sets, daily range): BP systolic 128–191; BP diastolic 44–90; PULSE 58–88; RESP 11–47; TEMP 96.7–98.3; O2SAT 89–100
--- NOTE | 2017-01-18 | NUR ---
Rounds and BM Patient resting in bed with eyes closed, easily aroused. Patient denies any acute distress or pain at this time. Breathing even and unlabored on mechanical vent, patient tolerating well. Assisted patient with bedpan, moderate sized BM. Needs addressed. Call light in hand, will continue to monitor for changes and safety.
--- NOTE | 2017-01-18 01:00 | NUR ---
Refused Oral Care Patient refused oral care when offered. Educated patient on importance, patient continue to refuse.
[2017-01-18] MEDS: HYDROmorphone 1 MG INJ. 1 MG/ML AMPUL IVP PRN ×5 (02:26→20:23)
--- NOTE | 2017-01-18 03:00 | NUR ---
Tube feeding bag changed Tube feeding bag changed along with tubing. Assisted patient with urinal. Will continue to monitor.
[2017-01-18] MEDS: ALBUTEROL SULFATE 0.083% 2.5 MG/3 ML VIAL.NEB INH SCH ×6 (03:22→22:50)
[2017-01-18] MEDS: IPRATROPIUM BROM 0.5 MG/2.5 ML VIAL.NEB (ATROVENT) INH SCH ×6 (03:22→22:51)
--- NOTE | 2017-01-18 05:46 | NUR ---
RT Note: 0546 Pt taken off of vent and placed on T-Bar 40%. Pt tolerated change well. HR 76, RR 12, SpO2 94%. no respiratory distress noted. Suctioned via trach tube and return is small, thick, pale yellow secretions. Pt refused to be orally suctioned. Trach care done at this time and trach is patent and secure. RN made aware of the changes. Will endorse to oncoming shift. Addendum: 01/18/17 at 0557 by Minal Guerin RT Amended: Links added.
--- NOTE | 2017-01-18 05:48 | NUR ---
Place on T-bar by RT Patient removed from mechanical vent, and placed back on T-bar, FiO2 40%. Patient tolerating well. Will continue to monitor.
[2017-01-18] MEDS: cloNIDine HCL 0.2 MG TABLET NG SCH ×3 (05:57→21:27)
[2017-01-18] MEDS: INSULIN REGULAR, HUMAN 100 UNITS/ML, 10 ML VIAL (novoLIN R) SUBCUT PRN ×4 (06:06→20:37)
--- NOTE | 2017-01-18 06:33 | NUR ---
Closing Notes Patient resting in bed with eyes closed, easily aroused. Patient denies any acute distress or pain at this time. Breathing even and unlabored on T-bar FiO2 40%. Gigi cath patent, dressing clean/dry/intact. Patient tolerating NG-tube feeding, HOB elevated. Needs addressed throughout shift. Call light in hand, fall precautions in place. Will continue to monitor for changes and safety, and endorse all patient care/needs to oncoming nurse.
[2017-01-18 06:35] LABS: ANION GAP 2 (5-15); CALCIUM 8.4 mg/dL (8.4-11.0); CHLORIDE 102 mmol/L (98-107); GLUCOSE 184 mg/dL (70-99); POTASSIUM 4.4 mmol/L (3.5-5.1); SODIUM SERUM 137 mmol/L (136-145); UREA NITROGEN, BLOOD 56 mg/dL (8-21)
[2017-01-18 06:45] LABS: HEMATOCRIT 34.5 % (36-54); HEMOGLOBIN 10.9 g/dL (14.0-18.0); MEAN CORPUSCULAR HEMOGLOBIN 27 pg (27-31); MEAN CORPUSCULAR HGB CONC 32 % (32-36); MEAN CORPUSCULAR VOLUME 84 fL (79.0-98.0); PLATELET COUNT (AUTO) 269 K/uL (130-430); RED BLOOD CELL COUNT(AUTO) 4.09 MIL/uL (4.2-6.2); RED CELL DISTRIBUTION WIDTH 13.5 % (9.0-15.0); WHITE BLOOD COUNT (AUTO) 20.8 K/uL (4.8-10.8)
[2017-01-18 07:21] LABS: BLOOD GAS PH 7.461 (7.350-7.450)
[2017-01-18 07:22] LABS: BLOOD GAS BASE EXCESS 5.9 mmol/L (-3.0-3.0)
[2017-01-18 07:23] LABS: BLOOD O2Hb% 84.5 % (94.0-97.0)
[2017-01-18] MEDS: BUDESONIDE 0.5 MG/2 ML AMPUL.NEB INH SCH ×2 (07:31→19:40)
[2017-01-18 08:10] LABS: ATYPICAL LYMPHOCYTES % 0 % (0-0); BAND % (MANUAL) 2 % (0-6); BASOPHILS % (MANUAL) 0 % (0-2); EOSINOPHILS % (MANUAL) 0 % (0-7); LYMPHOCYTES % (MANUAL) 10 % (20-46); MONOCYTES % (MANUAL) 12 % (0-11)
[2017-01-18] MEDS: POLYETHYLENE GLYCOL 3350, 17 GM/ POWD.PACK NG SCH (08:10)
[2017-01-18] MEDS: ENOXAPARIN SODIUM 30 MG/0.3 ML SYRINGE SUBCUT SCH (08:10)
[2017-01-18] MEDS: hydrALAZINE HCL 25 MG TABLET NG SCH ×4 (08:11→20:24)
[2017-01-18] MEDS: PANTOPRAZOLE GRANULES PACKET 40 MG NG SCH (08:11)
[2017-01-18] MEDS: PREDNISONE 20 MG TABLET PO SCH (08:11)
[2017-01-18] MEDS: LACTOBACILLUS RHAMNOSUS GG 1 CAP CAPSULE NG SCH ×2 (08:11→20:24)
[2017-01-18] MEDS: amLODIPine BESYLATE 10 MG TABLET NG SCH (08:12)
[2017-01-18] MEDS: SUCRALFATE 1 GM/10 ML UDC NG SCH ×3 (08:12→20:23)
[2017-01-18] MEDS: CARVEDILOL 25 MG TABLET (COREG) NG SCH ×2 (08:13→20:24)
[2017-01-18] MEDS: DOCUSATE SODIUM 100 MG CAPSULE PO SCH (08:13)
[2017-01-18] MEDS: PIPERACILLIN/TAZO 2.25G/DEX-IS 50 ML IV SCH ×2 (08:17→20:24)
[2017-01-18] MEDS: BALSAM PERU/CASTOR OIL 60 GM OINT...G. TP SCH (08:17)
--- NOTE | 2017-01-18 09:20 | NUR ---
Dr Visit Patient seen by Dr Butterfield. Swallow eval ordered.
--- NOTE | 2017-01-18 09:56 | NUR ---
margot ovalle called left message for sp [phone]
--- NOTE | 2017-01-18 15:15 | NUR ---
ST Speech therapist at bedside with RT.
--- NOTE | 2017-01-18 15:27 | NUR ---
S.T. SWALLOW EVAL (BLUE DYE SWALLOW TEST) COMPLETED. R.T. PRESENT TO HELP W/ SUCTIONING. PT PRESENTS W/ SEV PHARYNGEAL DYSPHAGIA W/ WET VOCAL QUALITY AND COUGHING ON TSP NECTAR THICK LIQUIDS. O2 SAT DROPPED TO 85 W/ SWALLOING. NO BLUE DYE SUCTIONED BUT ASPIRATION RISK PRESENT. PT REQUESTED TO STOP ORAL TRIALS REC: NPO - ALTERNATIVE METHOD FOR FEEDING. NURSES AFRICA AND KRYSTYNA NOTIFIED. G8996 CM G8997 CM G8998 CM NOMS LEVEL 2
--- NOTE | 2017-01-18 18:00 | NUR ---
Dr Visit Seen by Dr Fernandes. Labs ordered.
--- NOTE | 2017-01-18 19:30 | NUR ---
PM ASSESSMENT -Pt awake, resting in bed, nonverbal, able to verbalized needs. [place] cath of left chest wall-drsg cdi with pigtail, good blood returned noted. Pt is a dialysis pt, able to void and asks for urinal when needs to void. Keep HOB greater than 30 degree entire time. Lung sounds clear throughout all lobes. G-Tube feeding with Diabeticsource @ 45ml/hr. NGT of left nares-placement confirmed with 2 nurses. Abdomen soft but distended, BS present. Pt is now on trachea with T-bar with 40%,b6uvv=60-77%. [facility]47[facility]226. All safety measures in place. Urinal is at bedside. Fall precaution in place. Call light w/in reach. Continue to monitor pt.
--- NOTE | 2017-01-18 19:33 | NUR ---
Dr. BLAS IS AT BEDSIDE AND AWARED OF ELEVATED BP -WILL CHECK AND CARRY NEW ORDERS Addendum: 01/19/17 at 0728 by Faiza Card RN LATE ENTRY-DUE TO PT CARE; DR. BLAS INFORMED AND AWARED AT NURSES'S STATION REGARDING SWALLOW EVALUATION FAILED -NO FURTHER ORDER PER .
--- NOTE | 2017-01-18 20:23 | NUR ---
PAIN MEDICATION ADMINISTERED -pt is c/o neck/throat pain, gave Dilaudid 1mg IVP. See EMAR for pain reassessment. Call light w/in reach. Continue to monitor pt.
[2017-01-18] MEDS: MONTELUKAST 10 MG TABLET NG SCH (20:24)
--- NOTE | 2017-01-18 21:27 | NUR ---
NOTES; -Pt is resting in bed. No s/s any pain,sob,or any acute distress noted. Gave Catapres 0.2mg NG,zq=966/73, 66,h3tlf=32%, 16. Call light w/in reach. Continue to monitor pt.
--- NOTE | 2017-01-18 23:00 | NUR ---
Wiley-Resp therapist CHANGED FROM T-BAR VIA TRACHEA TO [facility] VENT SETTING VIA TRACH; XT=895,FIO2=40%, PEEP=5, HT=691 -Pt awakes, watching TV. No s/s any pain,sob,or any acute distress noted. Pt is now on trachea with T-bar with 40%,y7qhp=05-92%. All safety measures in place. Urinal is at bedside. Fall precaution in place. Call light w/in reach. Continue to monitor pt.
[2017-01-18] MEDS: HYDROcodone/ACETAMIN 5-325 MG TAB (NORCO/ VICODIN) NG PRN (23:12)
[2017-01-18] MEDS: hydrALAZINE HCL 20 MG/ML VIAL IVP PRN (23:13)
--- NOTE | 2017-01-18 23:13 | NUR ---
PAIN MEDICATION ADMINISTERED -pt is c/o neck/throat pain, gave [place] via NGT. See EMAR for pain reassessment. Call light w/in reach. Continue to monitor pt.
[2017-01-18] MEDS: ZOLPIDEM TARTRATE 5 MG TABLET NG PRN (23:20)
[2017-01-19] VITALS (19 sets, daily range): BP systolic 95–180; BP diastolic 39–90; PULSE 60–84; RESP 12–25; TEMP 96.4–98; O2SAT 94–99
[2017-01-19] MEDS: HYDROmorphone 1 MG INJ. 1 MG/ML AMPUL IVP PRN ×3 (01:34→13:59)
--- NOTE | 2017-01-19 01:34 | NUR ---
PAIN MEDICATION ADMINISTERED -pt is c/o neck/throat pain, gave Dilaudid 1mg IVP. See EMAR for pain reassessment. Call light w/in reach. Continue to monitor pt.
[2017-01-19] MEDS: IPRATROPIUM BROM 0.5 MG/2.5 ML VIAL.NEB (ATROVENT) INH SCH ×6 (02:01→22:24)
[2017-01-19] MEDS: ALBUTEROL SULFATE 0.083% 2.5 MG/3 ML VIAL.NEB INH SCH ×6 (02:01→22:24)
--- NOTE | 2017-01-19 02:01 | NUR ---
NOTES; PT VOIDED YELLOW URINE OUTPUT. -Pt awake,resting in bed. No s/s any pain,sob,or any acute distress noted. Mech Vent via trachea with same setting,o2sat= 99%; Call light w/in reach. Continue to monitor pt.
--- NOTE | 2017-01-19 04:00 | NUR ---
NOTES; -Pt is resting. No s/s any pain,sob,or any acute distress noted. Mech Vent via trachea with same setting,o2sat= 98%; Call light w/in reach. Continue to monitor pt.
--- NOTE | 2017-01-19 04:15 | NUR ---
NOTES; PT VOIDED 100 ML YELLOW URINE OUTPUT.
[2017-01-19] MEDS: cloNIDine HCL 0.2 MG TABLET NG SCH ×3 (05:15→22:00)
--- NOTE | 2017-01-19 05:15 | NUR ---
ELEVATED DB=009/85,70,15,I8ULN=52% -GAVE CATAPRES 0.2MG VIA NGT, FLUSHED WELL WITH 60ML WATER.
--- NOTE | 2017-01-19 05:17 | NUR ---
AM LAB DRAW BY DENTAL RESIDENT-PT TOLERATED WELL.
--- NOTE | 2017-01-19 05:42 | NUR ---
NOTES; REFUSED TO CHECK AND TO CHANGE LINEN THIS TIME.
[2017-01-19] MEDS: INSULIN REGULAR, HUMAN 100 UNITS/ML, 10 ML VIAL (novoLIN R) SUBCUT PRN ×4 (05:46→21:45)
--- NOTE | 2017-01-19 05:58 | NUR ---
PAIN MEDICATION ADMINISTERED -pt is c/o neck/throat pain, gave Dilaudid 1mg IVP. See EMAR for pain reassessment. Call light w/in reach. Continue to monitor pt.
[2017-01-19 06:46] LABS: BASOPHILS % (AUTO) 0.2 % (0.0-2.0); EOSINOPHILS # (AUTO) 0.1 K/uL (0.0-0.4); EOSINOPHILS % (AUTO) 0.5 % (0.0-4.0); HEMATOCRIT 35.2 % (36-54); HEMOGLOBIN 11.2 g/dL (14.0-18.0); LYMPHOCYTES # (AUTO) 1.7 K/uL (1.0-5.5); LYMPHOCYTES % (AUTO) 8.5 % (20.5-51.5); MEAN CORPUSCULAR HEMOGLOBIN 27 pg (27-31); MEAN CORPUSCULAR HGB CONC 32 % (32-36); MEAN CORPUSCULAR VOLUME 85 fL (79.0-98.0); MONOCYTES # (AUTO) 1.7 K/uL (0.0-1.0); MONOCYTES % (AUTO) 8.5 % (1.7-9.3); NEUTROPHILS % (AUTO) 82.3 % (40.0-70.0); PLATELET COUNT (AUTO) 263 K/uL (130-430); RED BLOOD CELL COUNT(AUTO) 4.15 MIL/uL (4.2-6.2); RED CELL DISTRIBUTION WIDTH 13.4 % (9.0-15.0); WHITE BLOOD COUNT (AUTO) 20.5 K/uL (4.8-10.8)
[2017-01-19 06:55] LABS: ALANINE AMINOTRANSFERASE 20 U/L (12-78); ANION GAP 3 (5-15); ASPARTATE AMINOTRANSFERASE 12 U/L (10-37); CALCIUM 8.7 mg/dL (8.4-11.0); CHLORIDE 100 mmol/L (98-107); CREATININE 4.44 mg/dL (0.55-1.30); GLUCOSE 202 mg/dL (70-99); POTASSIUM 4.4 mmol/L (3.5-5.1); SODIUM SERUM 136 mmol/L (136-145); TOTAL BILIRUBIN 0.3 mg/dL (0.0-1.0); TOTAL PROTEIN, SERUM 6.1 g/dL (6.4-8.3); UREA NITROGEN, BLOOD 71 mg/dL (8-21)
--- NOTE | 2017-01-19 06:57 | NUR ---
CLOSING NOTES; -Pt is resting in bed. [place] cath of left chest wall-drsg cdi. Keep HOB greater than 30 degree entire time. G-Tube feeding with Diabeticsource @ 45ml/hr. NGT of left nares in place. [facility] via trachea with mh=822, Dil5=849, peep=5, AC=10,g0tql=13%. All safety measures in place. Urinal is at bedside. Fall precaution in place. Call light w/in reach. Will endorse to oncoming nurse to continue care.
--- NOTE | 2017-01-19 07:30 | NUR ---
AM INITIAL ASSESSMENT: Assessed patient at bedside. Patient alert to name, non-verbal, trach to t-bar at 60%. Tolerating well. Able to communicate needs non-verbally, calm, cooperative. Left SC oneyda catheter with pigtail noted with no s/sx of infection. Flushes easily with good blood return. All ports covered with dual caps. NGT to left nare patent and auscultated placement. Feeding running with no residual. NSR on monitor. Redness noted to coccyx and right heel being addressed. No acute distress noted. All needs met at this time. Will continue to monitor.
[2017-01-19] MEDS: BUDESONIDE 0.5 MG/2 ML AMPUL.NEB INH SCH ×2 (07:40→20:00)
[2017-01-19] MEDS: ENOXAPARIN SODIUM 30 MG/0.3 ML SYRINGE SUBCUT SCH (08:26)
[2017-01-19] MEDS: SUCRALFATE 1 GM/10 ML UDC NG SCH ×3 (08:27→21:18)
[2017-01-19] MEDS: PIPERACILLIN/TAZO 2.25G/DEX-IS 50 ML IV SCH ×2 (08:27→21:39)
[2017-01-19] MEDS: hydrALAZINE HCL 25 MG TABLET NG SCH ×4 (08:28→21:20)
[2017-01-19] MEDS: PREDNISONE 20 MG TABLET PO SCH (08:28)
[2017-01-19] MEDS: PANTOPRAZOLE GRANULES PACKET 40 MG NG SCH (08:29)
[2017-01-19] MEDS: amLODIPine BESYLATE 10 MG TABLET NG SCH (08:29)
[2017-01-19 08:30] LABS: ABG TOTAL HEMOGLOBIN 11.3 G/dL (12.0-18.0); BLOOD GAS BASE EXCESS 4.3 mmol/L (-3.0-3.0); BLOOD GAS COHb% 0.7 % (0.5-1.5); BLOOD GAS HHB 3.5 % (0.0-6.0); BLOOD GAS PH 7.436 (7.350-7.450); BLOOD O2Hb% 95.6 % (94.0-97.0)
[2017-01-19] MEDS: POLYETHYLENE GLYCOL 3350, 17 GM/ POWD.PACK NG SCH (08:30)
[2017-01-19] MEDS: DOCUSATE SODIUM 100 MG CAPSULE PO SCH (08:30)
[2017-01-19] MEDS: LACTOBACILLUS RHAMNOSUS GG 1 CAP CAPSULE NG SCH ×2 (08:30→21:19)
[2017-01-19] MEDS: CARVEDILOL 25 MG TABLET (COREG) NG SCH ×2 (08:31→21:19)
[2017-01-19] MEDS: BALSAM PERU/CASTOR OIL 60 GM OINT...G. TP SCH (08:32)
--- NOTE | 2017-01-19 09:30 | NUR ---
Patient voided a small amount of urine via urinal with assistance. Skin kept clean and dry. Rotated patient to other side. Patient tolerated well. Will continue to monitor.
--- NOTE | 2017-01-19 10:05 | NUR ---
Dialysis nurse at bedside for HD. Updated on patients condition including administration of blood pressure medications this morning.
--- NOTE | 2017-01-19 12:00 | NUR ---
Suctioned patient as needed via oropharangeal suction. Patient tolerated with O2 remained greater than 95%. Will continue to monitor.
--- NOTE | 2017-01-19 12:05 | NUR ---
Nutrition Note Dr. Lutz signed off on RD rec for Prosource TID w/ current TF regimen. RD implemented order via EMR. RD to continue to follow per nutrition care standards.
--- NOTE | 2017-01-19 13:18 | NUR ---
HD completed. 3.5 Liters out. With no adverse reactions. Patients VSS. Charge nurse notified. Will continue to monitor.
--- NOTE | 2017-01-19 13:36 | NUR ---
DC PLANNING [place]oke w Dr Lutz [place] [facility], states that seems like Dialysis might be [facility], not sure yet. Plan is for LTAC if auth'd. If not then plan for Subacute that takes HD pt's such as [facility]. If unable to find subacute that takes HD pt's then will see if renal functions improves & does not require HD anymore then can go back to [facility]. Called & left msg w Kenia @ [facility], [phone] Ext:[phone], to f/u if able to get auth for LTAC. Pt info faxed yest to her. Addendum: 01/19/17 at 1445 by Elma PRITCHARD Still pending if LTAC will be authorized. Meanwhile; faxed referral to [phone] and [phone] for bed availability. Will follow up.
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
--- NOTE | 2017-01-19 14:43 | NUR ---
Report given to sylvia Jacobo via sbar method. Answered all questions. All lines and drains in place. Endorsed all care.
--- NOTE | 2017-01-19 15:27 | NUR ---
Transferred patient via ACLS protocol. Nurse at the bedside. Patient remained safe.
--- NOTE | 2017-01-19 15:30 | NUR ---
INITIAL NOTE RECEIVED REPORT AT BEDSIDE FROM RN NICOLAS, PT IS ALERT, NONVERBAL, BUT ABLE TO MAKE NEEDS KNOWN. PT IS ALSO BLIND. NGT TUBE IN PLACE WITH DIABETIC SOURCE AT 45CC/HR, NO RESIDUAL NOTED. NOTED BELKYS TO LEFT CHEST, DRESSING INTACT. REDNESS NOTED ON COCCYX WITH SMALL WOUND OPEN TO AIR, PT ON TBAR SETTINGS PLACED PER RT, SETTING NOTED. PT COMFORTABLE, NO S/S OF DISTRESS NOTED. PT REORIENTED TO USE OF CALL LIGHT AND IT IS PLACED WITHIN REACH , WILL FOLLOW UP
--- NOTE | 2017-01-19 17:00 | NUR ---
ACCUCHECK 239, INSULIN ADMINISTERED PER SLIDING SCALE
--- NOTE | 2017-01-19 18:00 | NUR ---
PT COMPLAINT OF ABDOMINAL PAIN, ADMINISTERED PRN NORCO. PT NOW SITTING COMFORTABLY IN BED, WILL REASSESS.
[2017-01-19] MEDS: HYDROcodone/ACETAMIN 5-325 MG TAB (NORCO/ VICODIN) NG PRN (18:03)
--- NOTE | 2017-01-19 19:00 | NUR ---
CLOSING NOTE PT SITTING IN BED, RESTING, EASY TO AROUSE, SHIFT REPORT GIVEN AT BEDSIDE, TRACH NOTED, NO S/S OF DISTRESS OR SOB, NGTUBE NOTED WITH FEEDING INFUSING. ALL NEEDS ATTENDED TO DURING SHIFT, SAFETY MEASURES IN PLACE, BED IN LOW POSITION AND LOCKED, CALL LIGHT WITHIN REACH, WILL ENDORSE CARE TO FOLLOWING SHIFT.
[2017-01-19] MEDS ORDERED: BUDESONIDE 0.5 MG/2 ML AMPUL.NEB ONE (19:42)
--- NOTE | 2017-01-19 20:20 | NUR ---
OPENING NOTE PATIENT IS A/OX4. NO SIGNS OF DISTRESS. BREATHING IS NON LABORED. PATIENT HAS NO COMPLAINTS OF PAIN. PATIENT IS NON VERBAL AND BLIND. HOWEVER, PATIENT COMMUNICATES BY MOUTHING HIS LIPS. BELKYS CATHETER IS PATENT AND SHOWS NO SIGNS OF COMPLICATIONS. PATIENT INSTRUCTED TO CALL FOR ASSISTANCE. CALL LIGHT IS WITHIN REACH. BED ALARM IS ON. WILL CONTINUE TO MONITOR.
[2017-01-19] MEDS: MONTELUKAST 10 MG TABLET NG SCH (21:19)
--- NOTE | 2017-01-19 22:00 | NUR ---
ASSISTED PATIENT WITH THE USE OF URINAL.
--- NOTE | 2017-01-19 22:05 | NUR ---
INFORMED PATIENT THAT ONE MORE MEDICATION, CLONIDINE, WAS TO BE GIVEN. PATIENT SHOOK HIS HEAD AND MOUTHING "NO". PATIENT KEPT POINTING TO VENT AND MOUTHING "SLEEP". INFORMED PATIENT THAT RESPIRATORY WOULD BE CALLED TO PUT PATIENT ON VENT. EDUCATED PATIENT ON IMPORTANCE OF MEDICATION. PATIENT REFUSED.
--- NOTE | 2017-01-19 22:30 | NUR ---
RT NOTES PLACED PT ON VENT AT THIS TIME. SETTINGS OF AC10/500/+5/40% VENT AND APNEA ALARMS SET AND FUNCTIONING. MED NEB TX GIVEN INLINE WITHOUT ADVERSE REACTION NOTED. SXN'D PRN FOR SMALL TO MODERATE AMOUNT OF THICK PALE YELLOW SECRETIONS. TRACH IS MIDLINE AND SECURE. EQUAL BILATERAL CHEST RISE PRESENT. BS SCATTERED RHONCHI ON BOTH LUNGS. NO RESP DISTRESS NOTED. AMBU BAG IS AT BEDSIDE.
[2017-01-20] VITALS (15 sets, daily range): BP systolic 132–169; BP diastolic 73–83; PULSE 60–87; RESP 10–18; TEMP 97–98.7; O2SAT 94–98
--- NOTE | 2017-01-20 00:05 | NUR ---
ROUNDS PATIENT IS IN BED SLEEPING. NO SIGNS OF DISTRESS. BREATHING IS NON LABORED. CALL LIGHT IS WITHIN REACH. BED ALARM IS ON. WILL CONTINUE TO MONITOR.
--- NOTE | 2017-01-20 02:14 | NUR ---
ROUNDS PATIENT IS IN BED SLEEPING. TV IS ON. NO SIGNS OF DISTRESS. BREATHING IS NON LABORED. CALL LIGHT IS PATIENT HAND. BED ALARM IS ON. WILL CONTINUE TO MONITOR.
[2017-01-20] MEDS: IPRATROPIUM BROM 0.5 MG/2.5 ML VIAL.NEB (ATROVENT) INH SCH ×6 (03:23→23:52)
[2017-01-20] MEDS: ALBUTEROL SULFATE 0.083% 2.5 MG/3 ML VIAL.NEB INH SCH ×6 (03:23→23:52)
--- NOTE | 2017-01-20 03:51 | NUR ---
RT IS AT BEDSIDE PROVIDING BREATHING TREATMENT.
--- NOTE | 2017-01-20 04:00 | NUR ---
PATIENT REFUSED WOUND CARE. PATIENT WAS SHAKING HIS HEAD IN A NO MOTION. PATIENT WAS EDUCATED ON THE IMPORTANCE OF WOUND CARE. PATIENT REFUSED.
[2017-01-20] MEDS: hydrALAZINE HCL 20 MG/ML VIAL IVP PRN (04:09)
[2017-01-20] MEDS: HYDROmorphone 1 MG INJ. 1 MG/ML AMPUL IVP PRN ×4 (04:10→22:36)
--- NOTE | 2017-01-20 04:15 | NUR ---
PATIENT WAS GIVEN A FAN AT PATIENT REQUEST.
[2017-01-20] MEDS: cloNIDine HCL 0.2 MG TABLET NG SCH ×3 (05:47→22:16)
[2017-01-20] MEDS: INSULIN REGULAR, HUMAN 100 UNITS/ML, 10 ML VIAL (novoLIN R) SUBCUT PRN ×4 (06:23→22:10)
[2017-01-20] MEDS: BUDESONIDE 0.5 MG/2 ML AMPUL.NEB INH SCH ×2 (07:42→19:52)
--- NOTE | 2017-01-20 08:00 | NUR ---
INITIAL NOTE PT IS AWAKE AND ALERT, ABLE TO COMMUNICATE AND MAKE NEEDS KNOWN. RESPIRATORY THERAPY IN ROOM, CHANGING PT FROM VENT TO TBAR, NO S/S OF DISTRESS NOTED, VSS, PT SUCTIONED PER SECRETIONS NOTED, NG TUBE IN PLACE WITH FEEDIG INFUSING, NO RESIDUAL NOTED. TELEMONITOR IN PLACE. SAFETY MEASURES IN PLACE, PT REORIENTED TO USE OF CALL LIGHT AND IT IS PLACED WITHIN REACH, WILL CONTINUE TO MONITOR.
[2017-01-20 08:01] LABS: HEMATOCRIT 31.5 % (36-54); HEMOGLOBIN 10.2 g/dL (14.0-18.0); MEAN CORPUSCULAR HEMOGLOBIN 27 pg (27-31); MEAN CORPUSCULAR HGB CONC 32 % (32-36); MEAN CORPUSCULAR VOLUME 84 fL (79.0-98.0); PLATELET COUNT (AUTO) 252 K/uL (130-430); RED BLOOD CELL COUNT(AUTO) 3.78 MIL/uL (4.2-6.2); RED CELL DISTRIBUTION WIDTH 13.9 % (9.0-15.0)
[2017-01-20 08:02] LABS: WHITE BLOOD COUNT (AUTO) 21.6 K/uL (4.8-10.8)
[2017-01-20 08:15] LABS: ALANINE AMINOTRANSFERASE 20 U/L (12-78); ALBUMIN 1.9 g/dL (3.4-4.8); ANION GAP 5 (5-15); ASPARTATE AMINOTRANSFERASE 11 U/L (10-37); CALCIUM 8.4 mg/dL (8.4-11.0); CHLORIDE 101 mmol/L (98-107); CREATININE 4.03 mg/dL (0.55-1.30); GLUCOSE 189 mg/dL (70-99); POTASSIUM 4.2 mmol/L (3.5-5.1); SODIUM SERUM 138 mmol/L (136-145); TOTAL BILIRUBIN 0.3 mg/dL (0.0-1.0); TOTAL PROTEIN, SERUM 5.9 g/dL (6.4-8.3); UREA NITROGEN, BLOOD 57 mg/dL (8-21)
[2017-01-20] MEDS: BALSAM PERU/CASTOR OIL 60 GM OINT...G. TP SCH (09:00)
[2017-01-20] MEDS: POLYETHYLENE GLYCOL 3350, 17 GM/ POWD.PACK NG SCH (09:24)
[2017-01-20] MEDS: DOCUSATE SODIUM 100 MG CAPSULE PO SCH (09:24)
[2017-01-20] MEDS: PANTOPRAZOLE GRANULES PACKET 40 MG NG SCH (09:24)
[2017-01-20] MEDS: LACTOBACILLUS RHAMNOSUS GG 1 CAP CAPSULE NG SCH ×2 (09:24→22:16)
[2017-01-20] MEDS: SUCRALFATE 1 GM/10 ML UDC NG SCH ×3 (09:24→22:24)
[2017-01-20] MEDS: ENOXAPARIN SODIUM 30 MG/0.3 ML SYRINGE SUBCUT SCH (09:25)
[2017-01-20] MEDS: hydrALAZINE HCL 25 MG TABLET NG SCH ×4 (09:25→22:15)
[2017-01-20] MEDS: CARVEDILOL 25 MG TABLET (COREG) NG SCH ×2 (09:26→22:16)
[2017-01-20] MEDS: PREDNISONE 20 MG TABLET PO SCH (09:26)
[2017-01-20] MEDS: amLODIPine BESYLATE 10 MG TABLET NG SCH (09:26)
[2017-01-20] MEDS: PIPERACILLIN/TAZO 2.25G/DEX-IS 50 ML IV SCH ×2 (09:27→22:02)
--- NOTE | 2017-01-20 09:40 | NUR ---
DR HAUSER MAKING ROUNDS
--- NOTE | 2017-01-20 10:00 | NUR ---
PT SUCTIONED, NOTED INCREASE IN SECRETIONS. PATIENT DENIES ANY SHORTNESS OF BREATH OR FEELINGS OF NAUSEA OR VOMITING, STATES HE IS COUGHING MORE. WILL CONTINUE TO MONITOR
--- NOTE | 2017-01-20 10:08 | NUR ---
Discharge Planning Called and spoke with MADDI Gabrielle @ [facility], [phone], to discuss possible tx to LTAC. I informed Gabrielle that patient continued with elevated BUN/Cr and is still unknown at this time if patient will need chronic HD, WBC remain elevated (21.6 today), failed swallow eval needing TF, requiring frequent suctioning (Q2-4hrs), CXR continues to show R pleural effusion. Gabrielle stated that she is going to write up a report and submit this morning to her Activity Therapist requesting auth for LTAC. [facility]s contracted with [facility] are [facility]. Will await call back from Gabrielle to find out if LTAC has been approved. Addendum: 01/20/17 at 1346 by Antonia Ruth RN Received call back from MADDI Kenia @ [facility] who stated that her medical assistant ob gyn has approved patient for LTAC. Kenia ask that we send inquiries to [facility] & [facility] which are the two closest contracted LTACs. Once we know which is willing to accept patient then Kenia wants to be contacted so an auth can be written up. Addendum: 01/20/17 at 1420 by Elma A Conner DP Faxed referral to [phone] and [facility] [phone]. Will follow up. Addendum: 01/20/17 at 1453 by Elma PRITCHARD Called Bert in admitting at [facility] who will return call with facility decision, referral currently under review. Called Shanae in admitting at [facility] left voice message requesting return call back.
--- NOTE | 2017-01-20 10:25 | NUR ---
PT SUCTIONED, NOTED INCREASE IN SECRETIONS, PT DENIES ANY NAUSEA OR VOMITING, WILL CONTINUE TO MONITOR .
[2017-01-20 11:12] LABS: ATYPICAL LYMPHOCYTES % 0 % (0-0); BAND % (MANUAL) 0 % (0-6); BASOPHILS % (MANUAL) 0 % (0-2); EOSINOPHILS % (MANUAL) 1 % (0-7); LYMPHOCYTES % (MANUAL) 8 % (20-46); MONOCYTES % (MANUAL) 10 % (0-11)
--- NOTE | 2017-01-20 11:15 | NUR ---
ORAL CARE PROVIDED AND SUCTIONING, NOTED INCREASE IN SECRETIONS. RT CALLED TO BEDSIDE FOR BREATHING TREATMENT .
[2017-01-20] MEDS ORDERED: TUBERCULIN,PURIF.PROT.DERIV. 0.1 ML SYR ID ONE (11:30)
--- NOTE | 2017-01-20 12:02 | NUR ---
DR STEPHENS PAGED, PT O2 SATURATION IS NOTED TO BE UNDER 90%, MORE SECRETIONS NOTED, SUCTION PERFORMED MORE FREQUENTLY. NEW ORDER RECEIVED FOR RT TO INCREASE FIO2 TO 50% AND ROBINUL FOR INCREASED SECRETIONS. WILL MONITOR PATIENT. GTUBE FEEDING HELD.
[2017-01-20] MEDS: IPRATROPIUM BROM 0.5 MG/2.5 ML VIAL.NEB (ATROVENT) INH PRN (12:52)
[2017-01-20] MEDS: ALBUTEROL SULFATE 0.083% 2.5 MG/3 ML VIAL.NEB INH PRN (12:53)
--- NOTE | 2017-01-20 13:16 | NUR ---
DR STEPHENS NOTIFIED THAT PATIENTS OXYGEN SATURATION CONTINUES TO BE BELOW 90% MD ORDERED PATIENT TO BE HOOKED ON THE VENTILATOR AT THE SAME SETTINGS USED FOR THE EVENING. RESPIRATORY THERAPY IN ROOM AND CARRYING ORDER OUT.
--- NOTE | 2017-01-20 13:21 | NUR ---
RECEIVED NEW ORDER FROM DR STEPHENS, DISCONTINUE CURRENT NGT AND REINSERT NEW NGT, FEEDING TO BE HELD TEMPORARILY. ORDER CHEST XRAY POST NEW NGTUBE INSERTION TO CHECK FOR PLACEMENT AND RULE OUT POSSIBLE ASPIRATION. PTS OXYGENATION IS ABOVE 90% AT THIS TIME, NO S/S OF RESPIRATORY DISTRESS NOTED.
--- NOTE | 2017-01-20 13:58 | NUR ---
DR BLAS MAKING ROUNDS, UPDATED ON PATIENTS STATUS.
[2017-01-20] MEDS: GLYCOPYRROLATE 1 MG TABLET NG SCH ×2 (14:40→22:24)
--- NOTE | 2017-01-20 15:18 | NUR ---
DR STEPHENS NOTIFIED OF CHEST XRAY RESULTS, MD STATES TO DECREASE NGTUBE FEEDING TO 20CC/HR AND MONITOR HOW PATIENT IS TOLERATING.
--- NOTE | 2017-01-20 16:00 | NUR ---
TB TEST TO LEFT UPPER FOREARM, SITE MARKED, DATED AND TIMED. WILL ENDORSE TO READ RESULTS AT 24HOURS, 36 HOURS, 48 HOURS, AND 72 HOURS, FORM PLACED IN CHART AND COPY WITH SBAR.
--- NOTE | 2017-01-20 16:25 | NUR ---
WOUND CARE AND CLEANING PT REPOSITIONED AND CLEANSED. JAVIER CARE PROVIDED. Z GUARD APPLIED TO BOTTOM AND FOLDS. WOUND ON COCCYX AND RIGHT BUTTOCK CLEANSED WITH NORMAL SALINE, PAT DRY, VENELEX APPLIED AND SURROUNDING TISSUE COVERED WITH ZGUARD, COVERED WITH FOAM DRESSING
--- NOTE | 2017-01-20 18:30 | NUR ---
CLOSING NOTE PT LAYING IN BED, LISTENING TO TV, NO S/S OF DISTRESS, PAIN OR DIFFICULTY BREATHING, VENT SETTING IN PLACE, NGTUBE PLACEMENT VERIFIED, AND FEEDING INFUSING AT 20CC/HR WILL CONTINUE TO MONITOR HOW PATIENT IS TOLERATING FEEDING RATE, PT REPOSITIONED WITH PILLOW SUPPORT, ALL NEEDS ATTENDED TO THROUGH SHIFT, SAFETY MEASURES AND ASPIRATION PRECAUTIONS IN PLACE, CALL LIGHT WITHIN REACH, WILL GIVE REPORT TO FOLLOWING SHIFT.
--- NOTE | 2017-01-20 20:00 | NUR ---
RT NOTES REC'D PT ON VENT WITH SETTINGS OF AC10/500/+5/60% FIO2 TITRATED TO 50% RN MADE AWARE. VENT AND APNEA ALARMS SET AND FUNCTIONING. MED NEB TX GIVEN INLINE WITHOUT ADVERSE REACTION NOTED. TRACH IS SECURE AND MIDLINE. SXND PRN FOR SMALL TO MODERATE AMOUNT OF PALE YELLOW SECRETIONS. EQUAL BILATERAL CHEST RISE PRESENT. BS SCATTERED RHONCHI THROUGH BOTH LUNGS. NO RESP DISTRESS NOTED. AMBU BAG IS AT BEDSIDE.
--- NOTE | 2017-01-20 20:07 | NUR ---
OPENING NOTE PATIENT IS A/OX4. NO SIGNS OF DISTRESS. BREATHING IS NON LABORED. VENT SETTINGS VERIFIED. PATIENT HAS NO COMPLAINTS OF PAIN. NG TUBE IS NOTED. DRAINAGE FROM VENT IS VERIFIED. VITAL SIGNS ARE STABLE. RT IS AT BEDSIDE PROVIDING BREATHING TREATMENTS. CALL LIGHT IS WITHIN REACH. BED ALARM IS ON. WILL CONTINUE TO MONITOR. PATIENT INSTRUCTED TO CALL FOR ASSISTANCE.
--- NOTE | 2017-01-20 21:50 | NUR ---
ROUNDS PATIENT IS IN BED RESTING AND LISTENING TO THE TV. NO SIGNS OF DISTRESS. BREATHING IS NON LABORED. CALL LIGHT IS WITHIN REACH. BED ALARM IS ON. SAFETY MEASURES ARE IN PLACE WILL CONTINUE TO MONITOR. PATIENT INSTRUCTED TO CALL FOR ASSISTANCE.
[2017-01-20] MEDS: MONTELUKAST 10 MG TABLET NG SCH (22:16)
--- NOTE | 2017-01-20 22:16 | NUR ---
NG TUBE FEEDING RESIDUAL PATIENT HAD RESIDUAL OF 3ML FROM NG TUBE FEEDING.
[2017-01-21] VITALS (11 sets, daily range): BP systolic 127–148; BP diastolic 63–77; PULSE 60–85; RESP 16–20; TEMP 96.7–98.7; O2SAT 94–99
--- NOTE | 2017-01-21 00:45 | NUR ---
ROUNDS PATIENT WAS ASSISTED WITH THE URINAL AND REPOSITIONED IN BED. BREATHING IS NON LABORED. NO SIGNS OF DISTRESS. CALL LIGHT IS IN PATIENT HANDS. BED ALARM IS ON. WILL CONTINUE TO MONITOR.
[2017-01-21] MEDS: ALBUTEROL SULFATE 0.083% 2.5 MG/3 ML VIAL.NEB INH SCH ×6 (03:00→23:27)
--- NOTE | 2017-01-21 03:20 | NUR ---
ROUNDS PATIENT IS IN BED SLEEPING. NO SIGNS OF DISTRESS. BREATHING IS NON LABORED. CALL LIGHT IS IN PATIENT HAND. BED ALARM IS ON. SAFETY MEASURES ARE IN PLACE. WILL CONTINUE TO MONITOR.
[2017-01-21] MEDS: IPRATROPIUM BROM 0.5 MG/2.5 ML VIAL.NEB (ATROVENT) INH SCH ×6 (03:30→23:27)
--- NOTE | 2017-01-21 05:19 | NUR ---
RT IS AT BEDSIDE PROVIDING BREATHING TREATMENTS.
[2017-01-21] MEDS: cloNIDine HCL 0.2 MG TABLET NG SCH ×3 (06:27→22:06)
--- NOTE | 2017-01-21 06:40 | NUR ---
TUBE FEEDING CHANGED PATIENT'S TUBE FEEDING AND TUBING WAS CHANGED. PATIENT HAD 2/3 ML OF RESIDUAL.
--- NOTE | 2017-01-21 06:51 | NUR ---
CLOSING NOTES PATIENT IS A/OX4. NO SIGNS OF DISTRESS. BREATHING IS NON LABORED. PATIENT IS IN BED LISTENING TO THE TV. BELKYS CATH IS CLEAN DRY AND INTACT. PATIENT HAS NO COMPLAINTS OF PAIN AT THIS TIME. CALL LIGHT IS IN PATIENT HAND. BED ALARM IS ON. SAFETY MEASURES ARE IN PLACE. WILL ENDORSE ALL CARE TO THE MORNING NURSE.
[2017-01-21] MEDS: BUDESONIDE 0.5 MG/2 ML AMPUL.NEB INH SCH ×2 (07:44→20:05)
[2017-01-21 07:53] LABS: BASOPHILS % (AUTO) 0.2 % (0.0-2.0); EOSINOPHILS # (AUTO) 0.1 K/uL (0.0-0.4); EOSINOPHILS % (AUTO) 0.4 % (0.0-4.0); HEMOGLOBIN 9.3 g/dL (14.0-18.0); LYMPHOCYTES # (AUTO) 1.7 K/uL (1.0-5.5); LYMPHOCYTES % (AUTO) 9.8 % (20.5-51.5); MEAN CORPUSCULAR HEMOGLOBIN 27 pg (27-31); MEAN CORPUSCULAR HGB CONC 32 % (32-36); MEAN CORPUSCULAR VOLUME 83 fL (79.0-98.0); MONOCYTES # (AUTO) 1.8 K/uL (0.0-1.0); MONOCYTES % (AUTO) 10.5 % (1.7-9.3); NEUTROPHILS # (AUTO) 13.9 K/uL (1.8-7.7); NEUTROPHILS % (AUTO) 79.1 % (40.0-70.0); PLATELET COUNT (AUTO) 210 K/uL (130-430); RED CELL DISTRIBUTION WIDTH 13.7 % (9.0-15.0); WHITE BLOOD COUNT (AUTO) 17.5 K/uL (4.8-10.8)
--- NOTE | 2017-01-21 08:17 | NUR ---
OPENING NOTE RECEIVED REPORT FROM NIGHT NURSE, PATIENT IS RESTING IN BED COMFORTABLY WITH NO COMPLAINTS OF PAIN, NO NOTED DISTRESS, DISCOMFORT OR SOB. PATIENT IS ON MASK @40% FIO2 AND TOLERATING WELL. PATIENT IS ALERT AND ORIENTED AND ABLE TO COMMUNICATE NEEDS TO STAFF. PATIENT IS BEDREST, CALL LIGHT IS WITHIN REACH AND WILL CONTINUE TO MONITOR.
[2017-01-21] MEDS: hydrALAZINE HCL 25 MG TABLET NG SCH ×4 (09:00→21:15)
[2017-01-21] MEDS ORDERED: HEPARIN SODIUM,PORCINE 5000 UNITS/ML VIAL IVP ONE (09:15)
--- NOTE | 2017-01-21 09:56 | NUR ---
DISCHARGE PLANNING Spoke with Bert in admitting at [phone], faxed updated RT notes showing patient current status on Vent. Bert will have referral reviewed with currently RT notes. Bert advised MEP to have CM follow up with MADDI Aquino at [facility]. MADDI Gonzalez made aware. Addendum: 01/21/17 at 1137 by Antonia Ruth RN Received call back from Kenia LINDA @ [facility] who stated that she is reaching out to [facility] for patient placement. She said she would call us back once she hears back from them. Addendum: 01/21/17 at 1543 by Elma PRITCHARD Called and spoke with MADDI Aquino at [facility] [phone] Ext [phone] who received call from [facility] accepted patientJason Aquino currently working on insurance auth and ROSENDO for facility hospitalist. Kenia pushing for insurance auth to be available and forwarded to facility today. Spoke with Bert in admitting at [facility] who was updated. Bert stated bed assignment will be given at [facility] upon insurance auth. [facility] located [address] [place] [id number] [phone] Ext [phone] Called patient son Valentino Teague [phone] who was made aware of discharge plan and agreeable. MEP will keep Valentino informed with discharge plan.
[2017-01-21] MEDS ORDERED: HEPARIN SODIUM,PORCINE 5000 UNITS/ML VIAL ONE (10:16)
[2017-01-21] MEDS ORDERED: HEPARIN SODIUM, PORCINE 10,000 UNITS/ 10 ML VIAL ONE (10:18)
--- NOTE | 2017-01-21 10:40 | NUR ---
NOTE DIALYSIS NURSE GAVE HEPARIN TO PATIENT VIA BELKYS CATH AND I SCANNED THE MEDICATION. PATIENT IS RESTING COMFORTABLY WITH NO COMPLAINTS OF PAIN, NO NOTED DISTRESS, DISCOMFORT OR SOB. PATIENT IS HAVING DIALYSIS AND SO MEDICATIONS WERE HELD UNTIL AFTER FINISHED. CALL LIGHT IS WITHIN REACH AND WILL CONTINUE TO MONITOR.
[2017-01-21] MEDS ORDERED: HEPARIN SODIUM, PORCINE 10,000 UNITS/ 10 ML VIAL MC ONE (10:45)
[2017-01-21] MEDS: PIPERACILLIN/TAZO 2.25G/DEX-IS 50 ML IV SCH ×2 (11:28→21:35)
[2017-01-21] MEDS: SUCRALFATE 1 GM/10 ML UDC NG SCH ×3 (11:28→21:14)
[2017-01-21] MEDS: PANTOPRAZOLE GRANULES PACKET 40 MG NG SCH (11:29)
[2017-01-21] MEDS: PREDNISONE 5 MG TABLET PO SCH (11:29)
[2017-01-21] MEDS: DOCUSATE SODIUM 100 MG CAPSULE PO SCH (11:29)
[2017-01-21] MEDS: POLYETHYLENE GLYCOL 3350, 17 GM/ POWD.PACK NG SCH (11:29)
[2017-01-21] MEDS: ENOXAPARIN SODIUM 30 MG/0.3 ML SYRINGE SUBCUT SCH (11:29)
[2017-01-21] MEDS: LACTOBACILLUS RHAMNOSUS GG 1 CAP CAPSULE NG SCH ×2 (11:30→21:16)
[2017-01-21] MEDS: amLODIPine BESYLATE 10 MG TABLET NG SCH (11:30)
[2017-01-21] MEDS: CARVEDILOL 25 MG TABLET (COREG) NG SCH ×2 (11:31→21:16)
[2017-01-21] MEDS: GLYCOPYRROLATE 1 MG TABLET NG SCH ×3 (11:32→21:15)
--- NOTE | 2017-01-21 12:00 | NUR ---
NOTE PATIENT FINISHED HD AND 3L WERE TAKEN OUT. MORNING MEDICATION WAS GIVEN AND TOLERATED WELL. CALL LIGHT IS WITHIN REACH AND NO COMPLAINTS OF PAIN, NO NOTED DISTRESS, DISCOMFORT OR SOB. WILL CONTINUE TO MONITOR.
--- NOTE | 2017-01-21 12:11 | NUR ---
Nutrition F/U Admitting Diagnosis Pneumonia, atypical chest pain, severe protein and caloric malnutrition Past Medical History COPD with chronic respiratory failure on T-bar, T2DM, peripheral artery disease, essential HTN, CKD, anemia, GERD, chronic constipation per MD notes Pertinent Medications prednisone, miralax, protonix, dulcolax suppository, SSI, colace, zofran, culturelle, piperacillin/tazobactum Current Diet Order/Nutrition Support TF Diabetisource AC at 20 ml/hr via NGT (x10 days) -- HELD due to dialysis Height (Feet) 5 feet Height (Inches) 9.00 inches Weight (Pounds) 270 pounds (admission); 01/16/17: Bedscale 270 lbs/123 kg, no change since admission; noted per EMR, pt has 2+ pitting edema to bilateral lower extremities and 1+ pitting edema to bilateral upper extremities (interpret wt w/ caution, likely inflated d/t fluids) 01/19/17: Bedscale 266 lbs/121 kg -- Weight loss likely due to fluid loss during hemodialysis 01/21/17: Bedscale 255 lb/116 kg -- Weight loss likely due to fluid loss during hemodialysis Weight (Calculated Kilograms) 122.025251 kilograms Patient Weight 122.47 kg Body Mass Index 37.6 kg/m2 (obesity class II) Holton/Adjusted Body Weight IBW 160 lb, 73 kg; 169% of IBW; Adjusted IBW: 183 lb, 83 kg. Estimated Needs (modified) 0865-6420 kcal/day (22-25 kcal/kg IBW for vent support) Grams of Protein per Day (modified) 146-183 gm/day (2-2.5 gm/kg IBW for COPD, CKD on HD, wound healing, vent support) Fluid Intake Goal Per MD for CKD Pertinent Labs WBC 17.5 H, H/H 9.3/29 L, POC BG 145 H 01/20/17: BUN 57 H, CRE 4.03 H, BG 189 H, ALB 1.9 L Other Subjective Data 01/20/17 Chest XR: NGT visualized in the stomach with distal tip not seen; Congestive changes and small bilateral effusions. Pt was seen sleeping soundly in bed, +trach to T-bar noted, registered sales assistant at bedside, undergoing dialysis at this time. TF Diabetisource bag seen hung, however, not infusing at this time. RN reported pt possibly aspirated yesterday due to NGT coming out a little, Dr. Damon decreased the tube feeding rate to 20 ml/hr. Note that pt failed swallow evaluation, per ST recommendation: Alternate method for feeding, pt at high risk for aspiration. Note RD attempted to call Dr. Lutz regarding findings and recommendations/possible consideration of PEG tube placement, left message with MD's nurse, awaiting call back. Current TF regimen provides 576 kcal, 29 gm protein, 391 ml free water daily. Meets 36% of estimated caloric needs and 20% of estimated protein needs. TF Intakes: (01/19) 810 ml - 972 kcal (60% of kcal needs); (01/20) 45 ml Residuals: (01/19) 3 ml; (01/20) 3 ml I/O: 290/0 (+290 ml) Problem with: N: None. V: None. D: None. C: None. Skin: Medial sacral and R heel wound. Corbin 13. Please refer to Dealer Support Technician RN note 01/15/17 for further details. GI: Abd soft, non-distended with active bowel sounds. Last BM x1 01/20. Problem, Etiology, Signs/Symptoms (modified) 1. Obesity related to self-monitoring deficit as evidenced by BMI 39.9 and 169% of IBW -- *Ongoing 2. Increased nutrient needs related to metabolic demands as evidenced by elevated WBC and estimated nutritional needs -- *Ongoing 3. Inadequate enteral nutrition support related to low TF rate, possible aspiration as evidenced by pt only meeting 36% of estimated caloric needs and 20% of estimated protein needs Expected Outcomes or Goals Goal: TF intakes to meet at least 50% of estimated needs with tolerance; Consideration of PEG tube placement Monitor: TF intakes/tolerance, labs, weight maintenance, GI function, improved skin integrity Dietitian Recommendations 1. Continue TF Diabetisource AC at 20 ml/hr via NGT per MD. 2. Note that pt has been on NGT feedings x10 days. 3. Consider PEG tube placement if/when medically appropriate. 4. If pt continues to tolerate TF well, consider increasing TF rate 10 ml Q6h to goal 55 ml/hr, Free Water Flush: 50 ml Q4h. This provides 1704 kcal, 109 gm protein, 1380 ml free water daily. Meets 100% of kcal needs and 75% of protein needs. Follow Up High Risk: F/U in 2-3 days
[2017-01-21] MEDS: INSULIN REGULAR, HUMAN 100 UNITS/ML, 10 ML VIAL (novoLIN R) SUBCUT PRN ×3 (12:12→21:24)
[2017-01-21] MEDS: BALSAM PERU/CASTOR OIL 60 GM OINT...G. TP SCH (13:44)
--- NOTE | 2017-01-21 14:30 | NUR ---
NOTE PATIENT IS RESTING COMFORTABLY IN BED WITH NO COMPLAINTS OF PAIN, NO NOTED DISTRESS, DISCOMFORT OR SOB. BED IS IN LOWEST POSITION AND CALL LIGHT IS WITHIN REACH. WILL CONTINUE TO MONITOR. PATIENT WAS REPOSITIONED AND TOLERATED WELL.
--- NOTE | 2017-01-21 15:30 | NUR ---
WOUND RE-EVALUATION: Patient received in a [place] Bed with an IsoFlex COLTON mattress with low air-loss therapy initiated, awake, alert, oriented, gets agitated easily. Patient is unable to turn independently. Corbin Score is a 16. Intrinsic factors that delay wound healing: COPD, Chronic Respiratory Failure, Diabetes Mellitus Type 2, Peripheral Arterial Disease, Anemia of Chronic Disease. Extrinsic factors that delay wound healing: Decreased mobility. Wound Assessment: 1) Sacral-Coccygeal Area: Pressure Ulcer, present on admission. Wound bed is 5% yellow tissue, 95% pale red tissue. No odor, no drainage. Robert-wound intact. Recommend continue: Cleanse wound with normal saline. Place moisture barrier cream onto robert-wound. Put Venelex onto wound bed. PAck wound with 1/4 inch Iodoform. Cover with foam dressing. Perform wound care daily, and as needed for dressing soiling or dislodgement. 2) Right Heel: Pressure Ulcer, present on admission. Wound bed is 100% dull pink tissue. No odor, no drainage. robert-wound intact. Appears to have resolved. Recommend continue: Cleanse wound with normal saline. Place moisture barrier cream onto site. Cover with foam dressing. Perform wound care daily, and as needed for dressing soiling or dislodgement. 3) Right Buttock: Non-intact skin from IAD. Recommend: Cleanse site with normal saline. Place moisture barrier cream onto site. Cover with foam dressing. Perform site care daily, and as needed for dressing soiling or dislodgement. Also recommend continue: Reposition patient side to side only every 2 hours with pillow support, and off-load pressure areas with pillows for pressure re-distribution. Offload, elevate and float bilateral heels with pillows. Perform skin care and monitor skin integrity Q shift. Use moisture barrier cream on buttocks and other moisture susceptible areas QID and as needed for soiling. Maintain patient on low air-loss therapy.
--- NOTE | 2017-01-21 16:30 | NUR ---
NOTE PATIENT IS RESTING COMFORTABLY IN BED WITH NO COMPLAINTS OF PAIN, NO NOTED DISTRESS, DISCOMFORT OR SOB. WOUND CARE WAS PROVIDED WITH ADALBERTO AND PICTURES WERE TAKEN. PATIENT WAS REPOSITIONED AND TOLERATED WELL. CALL LIGHT IS WITHIN REACH AND WILL CONTINUE TO MONITOR.
--- NOTE | 2017-01-21 18:22 | NUR ---
CLOSING NOTE PATIENT IS RESTING COMFORTABLY IN BED WITH NO COMPLAINTS OF PAIN, NO NOTED DISTRESS, DISCOMFORT OR SOB. PATIENT'S BS WAS 178 AND 2 UNITS OR REGULAR INSULIN WAS GIVEN WITH ANOTHER RN TO WITNESS. PATIENT IS TOLERATING TBAR @ VBW904%. BED IS IN LOWEST POSITION AND CALL LIGHT IS WITHIN REACH AND WILL GIVE REPORT TO NIGHT NURSE.
--- NOTE | 2017-01-21 19:30 | NUR ---
notes received the pt from the day nurse.alert but non verbal.due to trach. pt able to make needs known by pointing or moving his lips.t bar in place at 40%.pt tolerating well.monitor in place and shows SR.dressing to coccyx is dry and intact.pt is also blindquintin catheter intact to lt chest.call light within reach ,safety measures in progress.will continue to monitor.
[2017-01-21] MEDS: MONTELUKAST 10 MG TABLET NG SCH (21:15)
--- NOTE | 2017-01-21 21:37 | NUR ---
notes accucheck was 189,insulin given per s/s.medications given via ngt ,pt tolerated well.no residual noted.call light within reach.continue to monitor.
--- NOTE | 2017-01-21 23:47 | NUR ---
notes pt now is on the ventilator and resting with eyes closed.continue to monitor.
[2017-01-22] VITALS (9 sets, daily range): BP systolic 127–144; BP diastolic 68–71; PULSE 62–76; RESP 18–20; TEMP 97.6–97.9; O2SAT 96–97
--- NOTE | 2017-01-22 02:19 | NUR ---
notes pt awaken and repositioned with pillow support.tolerating the ventilator and the feeding well.pt with no complaints.call light within reach.continue to monitor.
[2017-01-22] MEDS: ALBUTEROL SULFATE 0.083% 2.5 MG/3 ML VIAL.NEB INH SCH ×4 (03:53→15:54)
[2017-01-22] MEDS: IPRATROPIUM BROM 0.5 MG/2.5 ML VIAL.NEB (ATROVENT) INH SCH ×4 (03:53→15:55)
--- NOTE | 2017-01-22 05:27 | NUR ---
notes bed bath with chg given pt repositioned with pillow support.pt with no complaints.will continue to monitor.
[2017-01-22] MEDS: cloNIDine HCL 0.2 MG TABLET NG SCH ×2 (05:44→14:00)
[2017-01-22] MEDS: INSULIN REGULAR, HUMAN 100 UNITS/ML, 10 ML VIAL (novoLIN R) SUBCUT PRN ×2 (05:52→17:44)
--- NOTE | 2017-01-22 06:13 | NUR ---
closing notes portable cxr taken pt placed on the t bar at 40% by respiratory therapist. will endorse the care of the pt to the day nurse.
--- NOTE | 2017-01-22 06:16 | NUR ---
notes accucheck was 168,insulin was given per s/s.
--- NOTE | 2017-01-22 08:40 | NUR ---
OPENING NOTE RECEIVED REPORT FROM NIGHT NURSE, PATIENT IS RESTING IN BED COMFORTABLY WITH NO COMPLAINTS OF PAIN, NO NOTED DISTRESS, DISCOMFORT OR SOB. PATIENT IS ALERT AND ORIENTED AND ABLE TO COMMUNICATE NEEDS TO STAFF. PATIENT IS BEDREST. CALL LIGHT IS WITHIN REACH AND PATIENT IS ON TBAR AT 40% FIO2 AND TOLERATING WELL. WILL CONTINUE TO MONITOR.
[2017-01-22] MEDS: PANTOPRAZOLE GRANULES PACKET 40 MG NG SCH (09:15)
[2017-01-22] MEDS: LACTOBACILLUS RHAMNOSUS GG 1 CAP CAPSULE NG SCH (09:15)
[2017-01-22] MEDS: ENOXAPARIN SODIUM 30 MG/0.3 ML SYRINGE SUBCUT SCH (09:15)
[2017-01-22] MEDS: POLYETHYLENE GLYCOL 3350, 17 GM/ POWD.PACK NG SCH (09:15)
[2017-01-22] MEDS: SUCRALFATE 1 GM/10 ML UDC NG SCH ×2 (09:15→16:11)
[2017-01-22] MEDS: PIPERACILLIN/TAZO 2.25G/DEX-IS 50 ML IV SCH (09:15)
[2017-01-22] MEDS: GLYCOPYRROLATE 1 MG TABLET NG SCH ×2 (09:16→16:11)
[2017-01-22] MEDS: hydrALAZINE HCL 25 MG TABLET NG SCH ×3 (09:16→17:00)
[2017-01-22] MEDS: amLODIPine BESYLATE 10 MG TABLET NG SCH (09:16)
[2017-01-22] MEDS: DOCUSATE SODIUM 100 MG CAPSULE PO SCH (09:16)
[2017-01-22] MEDS: CARVEDILOL 25 MG TABLET (COREG) NG SCH (09:17)
[2017-01-22] MEDS: PREDNISONE 5 MG TABLET PO SCH (09:18)
--- NOTE | 2017-01-22 11:02 | NUR ---
NOTE PATIENT IS RESTING IN BED COMFORTABLY WITH NO COMPLAINTS OF PAIN, NO NOTED DISTRESS, DISCOMFORT OR SOB. PATIENT'S VITAL SIGNS WERE WITHIN NORMAL RANGE AND ALL MEDICATIONS WERE GIVEN WITH NO COMPLICATIONS. CALL LIGHT IS WITHIN REACH AND WILL CONTINUE TO MONITOR.
--- NOTE | 2017-01-22 11:09 | NUR ---
DISCHARGE PLANNING Spoke with Bert in admitting at [place] insurance auth received patient assigned to room [facility] at [facility] [address] [facility] [address] RN to report [phone] Ext [phone], bed available after 6pm today. CM made aware, pending discharge order. Called and spoke with MADDI Aquino at [facility] who advised DCP to call [facility] dept at [phone] to arrange ambulance transport. 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 Placed transportation packet in nurses station. Addendum: 01/22/17 at 1602 by Elma Conner DP Spoke with Cheyanne at [facility] [employer] who stated ambulance have been dispatched with [facility]([phone], called and confirmed ambulance transport scheduled for cotton picker operator at 6:30pm. Called patient carla Teague [phone] left voice message requesting return call back.
--- NOTE | 2017-01-22 12:00 | NUR ---
NOTE PATIENT IS RESTING IN BED COMFORTABLY WITH NO COMPLAINTS OF PAIN, NO NOTED DISTRESS, DISCOMFORT OR SOB. PATIENT GAVE VERBAL CONSENT TO GO TO [facility] AND ANOTHER RN WITNESSED THE VERBAL CONSENT. AYAKA THE SON WAS CALLED BUT HE DID NOT ANSWER AND I LEFT A MESSAGE FOR HIM TO CALL BACK. BED IS IN LOWEST POSITION AND CALL LIGHT IS WITHIN REACH. WILL CONTINUE TO MONITOR.
--- NOTE | 2017-01-22 14:30 | NUR ---
NOTE PATIENT IS RESTING IN BED COMFORTABLY WITH NO COMPLAINTS OF PAIN, NO NOTED DISTRESS, DISCOMFORT OR SOB. PATIENT WAS REPOSITIONED AND TOLERATED WELL. CALL LIGHT IS WITHIN REACH AND WILL CONTINUE TO MONITOR.
[2017-01-22] MEDS: BUDESONIDE 0.5 MG/2 ML AMPUL.NEB INH SCH (15:53)
--- NOTE | 2017-01-22 16:00 | NUR ---
NOTE PICTURES WERE TAKEN OF WOUND BECAUSE PATIENT WILL BE PICKED UP AT 1830. DRESSING WAS CHANGED, WOUND WAS CLEANED AND PAT DRY AND Z GUARD WAS APPLIED TO PERIWOUND AND VENELEX WAS APPLIED TO THE WOUND AND FOAM DRESSING WAS APPLIED. PATIENT TOLERATED WELL, WAS REPOSITIONED. CALL LIGHT IS WITHIN REACH AND WILL CONTINUE TO MONITOR.
[2017-01-22] MEDS: BALSAM PERU/CASTOR OIL 60 GM OINT...G. TP SCH (16:10)
--- NOTE | 2017-01-22 17:55 | NUR ---
DISCHARGE PATIENT WAS GIVEN TRANSITION OF CARE INSTRUCTIONS AND VERBALIZED UNDERSTANDING. THE NG TUBE WAS CAPPED AND THE PIGTAIL HAS A COVER. PATIENT IS IN ORANGE GOWN AND BLANKETS. TRANSPORTATION SHOULD BE COMING AT 1830. AYAKA THE SON CALLED BACK AND WAS INFORMED OF THE PATIENT TRANSFERRING TO [place] AND WAS GIVEN THE NUMBER, ROOM NUMBER AND ADDRESS. BS WAS CHECKED AND IT WAS 263 AND 6 UNITS OF REGULAR INSULIN WAS GIVEN AND ANOTHER RN WITNESSED. CALL LIGHT IS WITHIN REACH AND WILL CONTINUE TO MONITOR.
--- NOTE | 2017-01-22 18:54 | NUR ---
NOTE CALLED EMT AND THEY STATED THAT THEY WILL NOT BE HERE TO [facility] IT THE PATIENT UNTIL 1930 BECAUSE THEY ARE WAITING FOR AN RN AND RT.
--- NOTE | 2017-01-22 19:40 | NUR ---
notes received the pt from the day nurse.ngt found out and was at the bedside.call placed to dr [facility].ambulance will be here any min. [facility] report given to the rn..
--- NOTE | 2017-01-22 19:57 | NUR ---
call #[address] [facility].
--- NOTE | 2017-01-22 20:18 | NUR ---
NOTES CALL PLACED TO THE RN AT [facility] WHO WANTS US TO INSERT THE NGT.CHARGE NURSE DIEGO SPOKE WITH THE RN.
--- NOTE | 2017-01-22 20:20 | NUR ---
NOTES rn AT [facility] INSTRUCTED US TI INSERT THE NGT HERE AND CLAMP IT AND THEY WILL GET THE XRAY OVER AT [facility] WHEN THEY ARRIVE.NGT INSERTED BY HEATHER TIAN TRANSFERRED WITH THE OPERATIONS TRAINER RN AND THE RESPIRATORY THERAPIST.TO [facility] WITH THE PACKET.PT WITH NO COMPLAINTS.
== END 2017-01-22 20:35 | DRG 870 ==
LOC: SED 23:11 → STU 01-06 01:07 → SIC 01-08 09:33 → STU 01-19 15:12
PROVIDERS: ADMIT Family Medicine; ATTEND Family Medicine
PROC: 5A1955Z Respiratory Ventilation, Greater than 96 Consecutive Hours (ICD-10-PCS; principal; 2017-01-08)
PROC: 5A1D60Z (ICD-10-PCS; 2017-01-08)
PROC: 05H633Z Insertion of Infusion Device into Left Subclavian Vein, Percutaneous Approach (ICD-10-PCS; 2017-01-08)
PROC: B547ZZA Ultrasonography of Left Subclavian Vein, Guidance (ICD-10-PCS; 2017-01-08)
PROC: 30233N1 Transfusion of Nonautologous Red Blood Cells into Peripheral Vein, Percutaneous Approach (ICD-10-PCS; 2017-01-12)
DX: A41.9 Sepsis, unspecified organism (principal); E43 Unspecified severe protein-calorie malnutrition; J69.0 Pneumonitis due to inhalation of food and vomit; R65.21 Severe sepsis with septic shock; G93.40 Encephalopathy, unspecified; J96.20 Acute and chronic respiratory failure, unspecified whether with hypoxia or hypercapnia; N18.6 End stage renal disease; J44.0 Chronic obstructive pulmonary disease with (acute) lower respiratory infection; N17.9 Acute kidney failure, unspecified; I31.3 Pericardial effusion (noninflammatory); I13.2 Hypertensive heart and chronic kidney disease with heart failure and with stage 5 chronic kidney disease, or end stage renal disease; E11.22 Type 2 diabetes mellitus with diabetic chronic kidney disease; E11.65 Type 2 diabetes mellitus with hyperglycemia; K21.9 Gastro-esophageal reflux disease without esophagitis; I25.10 Atherosclerotic heart disease of native coronary artery without angina pectoris; H54.8 Legal blindness, as defined in USA; I50.9 Heart failure, unspecified; I27.2 Other secondary pulmonary hypertension; E78.5 Hyperlipidemia, unspecified; E66.01 Morbid (severe) obesity due to excess calories; E11.51 Type 2 diabetes mellitus with diabetic peripheral angiopathy without gangrene; D63.8 Anemia in other chronic diseases classified elsewhere; E87.5 Hyperkalemia; G89.29 Other chronic pain; K59.09 Other constipation; Z74.01 Bed confinement status; Z79.899 Other long term (current) drug therapy; Z87.891 Personal history of nicotine dependence; Z93.0 Tracheostomy status; Z86.73 Personal history of transient ischemic attack (TIA), and cerebral infarction without residual deficits; Z79.4 Long term (current) use of insulin; Z72.89 Other problems related to lifestyle; Z68.39 Body mass index [BMI] 39.0-39.9, adult; Z88.1 Allergy status to other antibiotic agents; Z88.2 Allergy status to sulfonamides; Z99.2 Dependence on renal dialysis
CPT/HCPCS: 36415; 36600; 71010; 71275; 76770; 80048; 80053; 80061; 80074; 81000-TC; 82550-TC; 82803-TC; 82962; 83605; 83880; 84443-TC; 84484; 85007; 85025; 85027; 85379; 85610-TC; 85730-TC; 86580; 86886; 86900; 86901; 86920; 87040-TC; 87081; 87086; 87205-TC; 87230-TC; 90935; 90937; 92610-GN; 93005; 93306; 93971; 94002; 94003; 94640; 94760; 96367; 96375; 99285; C1751; J0360; J0456; J0696; J0713; J1170; J1644; J1650; J1815; J2060; J2270; J2405; J2543; J3490; J7030; J7040; J7050; J7060; J7512; P9021; Q9967